=== PATIENT | female | born 1950 | race Caucasian/White ===

== ENCOUNTER → 2018-05-03 12:48 | Outpatient (CLI) | payer OTHER, SELFPAY ==
--- NOTE | 2018-05-03 12:51 | DI.MG.S_ITS ---
BILATERAL DIGITAL SCREENING MAMMOGRAM 3D/2D WITH CAD: 05/03/2018 CLINICAL: Routine screening. Family history of breast cancer. Comparison is made to exam dated: 10/05/2013 [facility]. There are scattered fibroglandular elements in both breasts. Current study was also evaluated with a Computer Aided Detection (CAD) system. There is a benign biopsy clip in the left breast. No significant masses, calcifications, or other findings are seen in either breast. There has been no significant interval change. IMPRESSION: NEGATIVE There is no mammographic evidence of malignancy. A 1 year screening mammogram is recommended. This exam was interpreted at Station ID: [id number]. NOTE: For mammograms, a report in lay terms will be sent to the patient. Approximately 15% of breast malignancies will not be visualized mammographically. In the management of a palpable breast mass, a negative mammogram must not discourage biopsy of a clinically suspicious lesion. Electronically Signed By: Earle costello/virgilio:05/04/2018 13:40:28 letter sent: Normal Exam ACR BI-RADS Category 1: Negative [id number]
== END ==
PROVIDERS: Family Provider Nutritionist; PCP Nutritionist; Visit Provider Nurse Practitioner Acute Care
DX: Z12.31 Encounter for screening mammogram for malignant neoplasm of breast (principal); Z80.3 Family history of malignant neoplasm of breast
CPT/HCPCS: 77063; 77067

== ENCOUNTER → 2018-05-19 12:43 | Outpatient (CLI) | payer OTHER, SELFPAY | PROVIDERS: Family Provider Nutritionist; PCP Nutritionist; Visit Provider Nurse Practitioner Acute Care | DX: M85.851 Other specified disorders of bone density and structure, right thigh (principal); Z78.0 Asymptomatic menopausal state | CPT/HCPCS: 77080 ==

== ENCOUNTER 2021-03-02 15:16 | Emergency (ER) | payer OTHER, SELFPAY ==
--- NOTE | 2021-03-02 15:26 | DI.CT.S_ITS ---
PROCEDURE: CT CERVICAL SPINE WO CON INDICATIONS: fall,large contusion left side head,not on thinners TECHNIQUE: Noncontrast 3 mm thick sections acquired from the skull base to the T4 level. Sagittal and coronal reformats were then constructed. For radiation dose reduction, the following was used: automated exposure control, adjustment of mA and/or kV according to patient size. COMPARISON: None. FINDINGS: Image quality: Excellent. Bones: No fractures or dislocations. Visualized superior ribs are intact. There is anterolisthesis of C3 on C4 and C4 on C5 which is favored to be degenerative. Facets are appropriately aligned. There is near complete intervertebral disc space loss at C5-C6 and C6-C7 with endplate degenerative changes. Diffuse facet arthropathy. No significant bony spinal canal stenosis. Multiple levels of mild bony neural foraminal stenosis Soft tissues: Prevertebral soft tissues are normal in thickness. No paravertebral hematomas. No apical pneumothoraces. Vascular calcifications throughout the mediastinum and within the left greater than right carotid bifurcations. IMPRESSION: No acute fracture or dislocation. Likely degenerative anterolisthesis of C3 on C4 and C4 on C5. Multilevel cervical spondylosis. Dictated by: Alexandre Lebron D.O. on 03/02/2021 at 15:04 Approved by: Alexandre Lebron D.O. on 03/02/2021 at 15:08
--- NOTE | 2021-03-02 15:26 | DI.CT.S_ITS ---
PROCEDURE: CT HEAD/BRAIN WO CON INDICATIONS: fall,large contusion left side head,not on thinners TECHNIQUE: Noncontrast 4.5 mm thick angled axial sections acquired from the foramen magnum to the vertex, with coronal and sagittal reformats. For radiation dose reduction, the following was used: automated exposure control, adjustment of mA and/or kV according to patient size. COMPARISON: [facility], CT, CT HEAD WITHOUT CONTRAST, 01/24/2020, 12:44. [facility], CT, CT CERVICAL SPINE WO CON, 03/02/2021, 15:36. FINDINGS: Image quality: Excellent. CSF spaces: Basal cisterns are patent. No extra-axial fluid collections. Ventricles are normal in size and shape. Prominence of the retrocerebellar CSF which may represent arelis cisterna magna, unchanged and of unlikely clinical significance. Brain: No midline shift. No intracranial masses or hemorrhage. Jacobs-white matter interface is normal. Skull and face: Large soft tissue hematoma overlying the posterior and superior left occiput. Calvarium and visualized facial bones are intact, without suspicious lesions. Sinuses: Visualized sinuses and mastoids are clear. IMPRESSION: Large soft tissue hematoma overlying the posterior left occiput. No evidence of acute intracranial hemorrhage or displaced calvarial fracture. Dictated by: Alexandre Lebron D.O. on 03/02/2021 at 15:00 Approved by: Alexandre Lebron D.O. on 03/02/2021 at 15:04
[2021-03-02 15:27] VITALS: BP 159/83; PULSE 103; PULSE 105; RESP 18; TEMP 36.7; O2SAT 94; O2SAT 96; BMI 42.5
[2021-03-02 15:30] VITALS: BP 151/80; PULSE 102; O2SAT 95
--- NOTE | 2021-03-02 15:43 | PC.NURSE ---
Patient c/o head pain due to recent fall (1500 today) in her driveway. Patient has been housebound for the past two weeks, per at bedside. States she has been feeling unwell and her sugars are uncontrolled. She is currently being followed by a MD in [place] to manage her DMII. C/O diarrhea over the past two days, denies rash and no hx of recent fever.
[2021-03-02 16:00] VITALS: PULSE 98; O2SAT 94
--- NOTE | 2021-03-02 16:06 | ED.FALL ---
HPI - Fall General Chief Complaint: Fall Stated Complaint: GLF, head injury, seen emt Time Seen by Provider: 03/02/21 16:00 Source: patient Mode of arrival: Wheelchair History of Present Illness HPI Narrative: Patient brought here by family. EMS did arrive to home for evaluation. Patient and state that she was trying to carry to many things out of her car. She was in between 2 cars at home on the driveway and got caught between the doors and fell down. Hit her head on the driveway. Has hematoma with the left parietal occipital scalp. No bleeding. Patient not on blood thinners. No loss of consciousness. No altered mental status. No vision changes. No vomiting. No weakness. Denies any other injuries Related Data Allergies Allergy/AdvReac Type Severity Reaction Status Date / Time enalapril Allergy Verified 03/02/21 15:27 Review of Systems Review of Systems Narrative: GENERAL: Denies chills, fatigue, malaise, fever, sweats. HEENT: Denies sinus pain, ear pain, sore throat RESPIRATORY: Denies dyspnea, cough CARDIOVASCULAR: Denies chest pain, palpitations GASTROINTESTINAL: Denies nausea, vomiting, abdominal pain : Denies dysuria, frequency, hematuria MUSCULOSKELETAL: Positive muscle or bony pain SKIN: Denies rash, skin lesions NEUROLOGIC: Denies weakness, numbness ROS Unobtainable: All systems reviewed & are unremarkable except as noted in HPI and below Patient History Social History Smoking Status: Unknown if ever smoked Smoking Status: Unknown if ever smoked alcohol intake frequency: holidays/special occasions only Substance Use Type: does not use Exam Narrative Exam Narrative: GENERAL: in no distress, not toxic not dyspneic HEAD: Normocephalic. There is tenderness and edema to the left parietal occipital scalp. Hematoma measures 4 cm in diameter. No crepitus or step-off of the skull. No bleeding on the scalp. EYES: Pupils equal round No scleral icterus. ENT: Mucous membranes moist. No malocclusion or trismus. No intraoral oral injury. NECK: Trachea midline. No midline tenderness or step-off. CARDIOVASCULAR: Regular rate and rhythm without murmurs RESPIRATORY: Clear to auscultation. Breath sounds equal bilaterally. No wheezes, rales, or rhonchi. GASTROINTESTINAL: Abdomen soft, non-tender EXTREMITIES: No gross deformities. Nontender bilateral shoulders elbows wrists pelvis hips knees and ankles. NEURO: AOx4. 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 They agree with treatment plan discharge home and comfortable with home observation for any changes. Time: 16:16 Vital Signs Vital signs: Vital Signs - 8 hr 03/02/21 15:27 03/02/21 15:30 Temperature 98.0 F Pulse Rate 103 H 102 H Respiratory Rate 18 Blood Pressure 159/83 H 151/80 H Pulse Oximetry 94 95 MDM - Fall Differential Diagnosis Differential diagnosis: Likely syncope, concussion with loss of consciousness, concussion without loss of consciousness and other (Scalp hematoma/closed head injury/intracranial injury/bleed) Imaging Data CT scan - head: Radiologist's Impression: [address] [address] [address] Scan Report Signed Patient: Gianna Rodríguez MR#: [id number] : 1950 Acct:[id number] Age/Sex: 70 / F Date of Service: 03/02/21 Loc: ED Accession Number: [id number] ?? Procedure: CT head/brain wo con Ordering Provider: Nathanael Whelan MD PROCEDURE:? CT HEAD/BRAIN WO CON ? INDICATIONS:? fall,large contusion left side head,not on thinners ? TECHNIQUE:? Noncontrast 4.5 mm thick angled axial sections acquired from the foramen magnum to the vertex, with coronal and sagittal reformats.? For radiation dose reduction, the following was used:? automated exposure control, adjustment of mA and/or kV according to patient size.? ? COMPARISON:? [facility], CT, CT HEAD WITHOUT CONTRAST, 01/24/2020, 12:44.? [facility], CT, CT CERVICAL SPINE WO CON, 03/02/2021, 15:36. ? FINDINGS:? Image quality:? Excellent.? ? CSF spaces:? Basal cisterns are patent.? No extra-axial fluid collections.? Ventricles are normal in size and shape.? Prominence of the retrocerebellar CSF which may represent arelis cisterna magna, unchanged and of unlikely clinical significance. ? Brain:? No midline shift.? No intracranial masses or hemorrhage.? Jacobs-white matter interface is normal.? ? Skull and face:? Large soft tissue hematoma overlying the posterior and superior left occiput.? Calvarium and visualized facial bones are intact, without suspicious lesions.? ? Sinuses:? Visualized sinuses and mastoids are clear.? ? IMPRESSION:? ? Large soft tissue hematoma overlying the posterior left occiput.? No evidence of acute intracranial hemorrhage or displaced calvarial fracture. ? ? Dictated by: Alexandre Lebron D.O. on 03/02/2021 at 15:00 ? ? Approved by: Alexandre Lebron D.O. on 03/02/2021 at 15:04 ? CT - cervical spine: Radiologist's Impression: [place] [address] CT Scan Report Signed Patient: Gianna Rodríguez MR#: [id number] : 1950 Acct:[id number] Age/Sex: 70 / F Date of Service: 03/02/21 Loc: ED Accession Number: [id number] ?? Procedure: CT cervical spine wo con Ordering Provider: Nathanael Whelan MD PROCEDURE:? CT CERVICAL SPINE WO CON ? INDICATIONS:? fall,large contusion left side head,not on thinners ? TECHNIQUE:? Noncontrast 3 mm thick sections acquired from the skull base to the T4 level.? Sagittal and coronal reformats were then constructed.? For radiation dose reduction, the following was used:? automated exposure control, adjustment of mA and/or kV according to patient size.? ? COMPARISON:? None. ? FINDINGS:? Image quality:? Excellent.? ? Bones:? No fractures or dislocations.? Visualized superior ribs are intact.? There is anterolisthesis of C3 on C4 and C4 on C5 which is favored to be degenerative.? Facets are appropriately aligned.? There is near complete intervertebral disc space loss at C5-C6 and C6-C7 with endplate degenerative changes.? Diffuse facet arthropathy.? No significant bony spinal canal stenosis.? Multiple levels of mild bony neural foraminal stenosis? ? Soft tissues:? Prevertebral soft tissues are normal in thickness.? No paravertebral hematomas.? No apical pneumothoraces.? Vascular calcifications throughout the mediastinum and within the left greater than right carotid bifurcations. ? ? IMPRESSION:? ? No acute fracture or dislocation.? Likely degenerative anterolisthesis of C3 on C4 and C4 on C5. ? Multilevel cervical spondylosis.? ? Dictated by: Alexandre Lebron D.O. on 03/02/2021 at 15:04 ? ? Approved by: Alexandre Lebron D.O. on 03/02/2021 at 15:08 ?? MDM Narrative Medical decision making narrative: Appropriate for discharge home. Exam and imaging reassuring. Patient neurovascularly intact. Return precautions reviewed with patient and . Not toxic at discharge. No other further observation needed. Discharge Plan Departure Patient Disposition: Home Clinical Impression: Hematoma of occipital region of scalp Instructions: DI for Hematoma (Bruise), DI for Closed Head Injury Activity Restrictions/Additional Instructions: See family doctor next week for recheck. May use Tylenol for pain. Use ice pack 20 minutes at a time to the scalp as needed for pain and swelling. Return if worse if any questions or concerns Referrals: Staci Tovar MD [Primary Care Provider] -
[2021-03-02] MEDS: ACETAMINOPHEN 325 MG TABLET 975 MG PO (16:11)
[2021-03-02 16:17] VITALS: BP 138/63; PULSE 99; O2SAT 94
[2021-03-02 16:36] VITALS: BP 138/63; PULSE 99; RESP 20; O2SAT 94
== END 2021-03-02 16:38 | disposition home or self-care (01) ==
PROVIDERS: Emergency Provider Emergency Medicine; Family Provider Nutritionist; PCP Nutritionist
DX: S00.03XA Contusion of scalp, initial encounter (principal); W19.XXXA Unspecified fall, initial encounter
CPT/HCPCS: 70450; 72125; 99284; 99291

== ENCOUNTER → 2021-06-10 15:49 | Outpatient (CLI) | payer OTHER, SELFPAY ==
--- NOTE | 2021-06-10 | DI.MG.S_ITS ---
BILATERAL DIGITAL SCREENING MAMMOGRAM 3D/2D WITH CAD: 06/10/2021 CLINICAL: Routine screening. Family history of breast cancer. Comparison is made to exams dated: 05/03/2018 mammogram, 10/05/2013 mammogram, 09/22/2013 mammogram, and 08/18/2013 mammogram - [facility]. There are scattered fibroglandular elements in both breasts. Current study was also evaluated with a Computer Aided Detection (CAD) system. There are stable biopsy clips in the left breast. There is a 0.8 cm oval high density focal asymmetry in the right breast at 12 o'clock middle depth. This is more prominent and increased in size. No other significant masses, calcifications, or other findings are seen in either breast. IMPRESSION: INCOMPLETE: NEEDS ADDITIONAL IMAGING EVALUATION The 0.8 cm oval high density focal asymmetry in the right breast is indeterminate. Additional views with possible ultrasound are recommended. This exam was interpreted at Station ID: [id number]. NOTE: For mammograms, a report in lay terms will be sent to the patient. Approximately 15% of breast malignancies will not be visualized mammographically. In the management of a palpable breast mass, a negative mammogram must not discourage biopsy of a clinically suspicious lesion. Electronically Signed By: Iban Burns M.D. aty/:06/10/2021 16:55:42 letter sent: Additional Imaging Needed ACR BI-RADS Category 0: Incomplete [id number]
== END ==
PROVIDERS: Family Provider Nutritionist; PCP Nutritionist; Referring Provider Nutritionist; Visit Provider Nutritionist
DX: Z12.31 Encounter for screening mammogram for malignant neoplasm of breast (principal); Z80.3 Family history of malignant neoplasm of breast
CPT/HCPCS: 77063; 77067

== ENCOUNTER → 2021-07-02 11:40 | Outpatient (CLI) | payer OTHER, SELFPAY ==
--- NOTE | 2021-07-02 | DI.US.S_ITS ---
PROCEDURE: US BREAST RT LIMITED COMPARISON: None. INDICATIONS: ADD VIEWS RIGHT BREAST FINDINGS: IMPRESSION: Dictated by: Jt White M.D. on 07/02/2021 at 15:48 Approved by: Jt White M.D. on 07/02/2021 at 15:49
--- NOTE | 2021-07-02 | DI.MG.S_ITS ---
UNILATERAL RIGHT DIGITAL DIAGNOSTIC MAMMOGRAM 3D/2D WITH ADDITIONAL VIEWS: 07/02/2021 CLINICAL: Additional evaluation requested from prior study. Comparison is made to exams dated: 06/10/2021 mammogram, 05/03/2018 mammogram, and 08/18/2013 mammogram - [facility]. There are scattered fibroglandular elements in right breast. There is a 0.8 cm oval high density focal asymmetry in the right breast at 12 o'clock middle depth. This is seen in additional views. No other significant masses or calcifications are seen in the breast. IMPRESSION: INCOMPLETE: NEEDS ADDITIONAL IMAGING EVALUATION The 0.8 cm oval high density focal asymmetry in the right breast is indeterminate. An ultrasound is recommended. US will be performed and dictated separately. This exam was interpreted at Station ID: [id number]. NOTE: For mammograms, a report in lay terms will be sent to the patient. Approximately 15% of breast malignancies will not be visualized mammographically. In the management of a palpable breast mass, a negative mammogram must not discourage biopsy of a clinically suspicious lesion. Electronically Signed By: Jt White acr/:07/02/2021 12:23:40 ACR BI-RADS Category 0: Incomplete [id number]
--- NOTE | 2021-07-02 12:47 | DI.US.S_ITS ---
Date: 07/02/2021 12:49 At the request of: CONNOR BABCOCK Procedure: US breast RT limited ULTRASOUND OF RIGHT BREAST: 07/02/2021 CLINICAL: Patient returns today to evaluate a focal asymmetry in the right breast. Comparison is made to exams dated: 07/02/2021 mammogram, 06/10/2021 mammogram, and 05/03/2018 mammogram - [facility]. Doppler ultrasound of the right breast was performed. Jacobs scale images of the real-time examination were reviewed. There is a 1.1 cm x 0.5 cm x 0.9 cm irregular mass with an indistinct margin in the right breast at 12 o'clock middle depth 10 cm from the nipple. This irregular mass displays posterior acoustic enhancement. IMPRESSION: SUSPICIOUS OF MALIGNANCY The 1.1 cm x 0.5 cm x 0.9 cm irregular mass in the right breast is at a high suspicion for malignancy. An ultrasound guided biopsy is recommended. These findings and recommendation were discussed with the patient by Dr Cook. This exam was interpreted at Station ID: [id number]. Electronically Signed By: Jt White acr/:07/02/2021 15:49:34 letter sent: Biopsy Required Ultrasound BI-RADS: 4c High suspicion of malignancy
== END ==
PROVIDERS: Family Provider Nutritionist; PCP Nutritionist; Referring Provider Nutritionist; Visit Provider Nutritionist
DX: R92.8 Other abnormal and inconclusive findings on diagnostic imaging of breast (principal); N63.15 Unspecified lump in the right breast, overlapping quadrants
CPT/HCPCS: 76642; 77065; G0279

== ENCOUNTER → 2021-08-06 10:47 | Outpatient (CLI) | payer OTHER, SELFPAY ==
--- NOTE | 2021-08-06 | DI.MG.S_ITS ---
UNILATERAL RIGHT DIGITAL DIAGNOSTIC MAMMOGRAM 3D/2D POST-NEEDLE BIOPSY: 08/06/2021 CLINICAL: Right breast mass. Comparison is made to exams dated: 07/02/2021 mammogram, 06/10/2021 mammogram, and 05/03/2018 mammogram - [facility]. There are scattered fibroglandular elements in right breast. There is a marker clip in the appropriate position in the right breast at 12 o'clock middle depth. This marker clip placement is at the biopsy site. IMPRESSION: POST PROCEDURE MAMMOGRAM FOR MARKER PLACEMENT There was a successful marker clip placement in the right breast middle depth. This exam was interpreted at Station ID: [id number]. NOTE: For mammograms, a report in lay terms will be sent to the patient. Approximately 15% of breast malignancies will not be visualized mammographically. In the management of a palpable breast mass, a negative mammogram must not discourage biopsy of a clinically suspicious lesion. Electronically Signed By: Kristyn mccloud/virgilio:08/06/2021 12:06:01 ACR BI-RADS Category Post-procedure mammogram for marker placement
--- NOTE | 2021-08-06 | DI.US.S_ITS ---
ULTRASOUND GUIDED BIOPSY RIGHT BREAST USING VACUUM DEVICE WITH MARKING DEVICE INSERTED AND POST DIGITAL MAMMOGRAPHIC IMAGIN08/06/2021 CLINICAL: Right breast mass. PATIENT CONSENT: Risks (minor bleeding, infection, vasovagal reaction and repeat procedure), benefits and alternatives were explained to the patient and written informed consent was obtained. Correlation is made to exams dated: 07/02/2021 ultrasound, 07/02/2021 mammogram, 06/10/2021 mammogram, 05/03/2018 mammogram, 04/07/2014, and 08/18/2013 mammogram - [facility]. An ultrasound guided biopsy using real-time ultrasound was performed for the indistinct irregular shaped mass located in the right breast at 12 o'clock middle depth. The skin was prepped in the usual manner. Local anesthetic was administered to the access site. A skin jacqueline was made in the breast. The abnormality was approached from the lateral aspect. A 13 gauge biopsy needle was placed adjacent to the abnormality under ultrasound guidance. Once the needle was documented to be in the correct location, six specimens were obtained using the Mammotome biopsy system. A Vision biopsy clip was inserted into the biopsy cavity. A skin closure strip was applied to the access site. Post procedure digital mammographic imaging demonstrates the location device at the targeted area. The specimens were sent to the laboratory for pathological analysis. IMPRESSION: ULTRASOUND GUIDED BIOPSY MALIGNANT Ultrasound guided biopsy of the mass in the right breast at 12 o'clock middle depth was successful. 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 No evidence of invasive carcinoma. Pathology results are concordant with imaging findings. This exam was interpreted at Station ID: [id number]. Kristyn Weber M.D. [facility],sanjay/:08/12/2021 08:16:45
--- NOTE | 2021-08-06 | PATH_ITS ---
[facility] Accession Number: [id number] . 01 Material submitted: . breast - RIGHT BREAST MASS 9:00, 10 CMFN BIOPSY . 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 No evidence of invasive carcinoma. See comment and summary data below: . 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 Nuclear grade: Grade 1 (low). Necrosis: Not identified. Microcalcifications: Present in non-neoplastic tissue. Estrogen receptor status: Positive, 91-100% MRV 08/09/2021 1709 Local . 02 Comment: The area of atypia within the papilloma fragments is less than 3 mm in contiguous extent and, therefore does not meet the criteria required to diagnose DCIS. However, low grade DCIS is present in ducts adjacent to the papilloma. . As part of routine quality inspector, this case was also reviewed by Dr. Peterson who agrees with the diagnosis. . 02 Electronically signed: . Sherlyn Carbajal MD, Pathologist NPI- [id number] . 01 Gross description: . Received in formalin, labeled with the patient's name and additionally labeled right breast, 9 o'clock are multiple core needle biopsies of yellow lobulated adipose tissue and winston breast parenchyma measuring 1.5 x 1.3 x 0.5 cm. The specimen is entirely submitted in cassettes A1 and A2. (MS:[id number]) /MRV 08/07/2021 1506 Local . 02 Microscopic: . Immunohistochemical stains were performed to characterize cells of interest. All control stains showed appropriate reactivity. . RESULTS: P63: Positive around the ducts of interest. Myosin: Positive around the ducts of interest. Estrogen receptor (SP1): Strongly positive (91-100%). . Cold Ischemia and Fixation Times: Meets requirements in the latest version of the ASCO/CAP guidelines. Testing performed on Block Number: A2 . TECHNICAL NOTE: The scoring criteria for breast biomarkers by immunohistochemistry is based on the current ASCO/CAP guidelines (Stephanie et al, Arch Pathol Lab Med 2010: 134(6): 907-922 / Derek Hall, Arch Pathol Lab Med 2014: 138(2):241-256). Deparaffinized sections of formalin fixed tissue (along with appropriate positive controls) are incubated with the above antibody(s). Using the automated [place] stainer, tissue is incubated with the designated antibody* which is then localized by a non-biotin, dual polymer detection system. The external controls are reviewed for appropriate reactivity and found to be adequate. Results on the target cell population are indicated above. These tests have not been validated on decalcified tissue. * This test was developed and its performance characteristics determined by [facility]. It has not been cleared or approved by the U.S. Food and Drug Administration. The FDA has determined that such clearance or approval is not necessary. This test is used for clinical purposes. It should not be regarded as investigational or for research. . 02 Pathologist provided ICD-10: R92.8 . 02 CPT . 588102, V91887, T41743, 948615 Specimen Comment: A courtesy copy of this report has been sent to [facility] Pathology Performed at: 01 [facility] [address] [facility], [place], [place] [id number] MD Justin Davey MD Phone: [phone] Performed at: 02 [facility] [id number] [facility] [address] [place], [place] [id number] MD Sherlyn Carbajal MD Phone: [phone]
== END ==
PROVIDERS: Family Provider Nutritionist; PCP Nutritionist; Referring Provider Nutritionist; Visit Provider Nutritionist
DX: D05.11 Intraductal carcinoma in situ of right breast (principal)
CPT/HCPCS: 19083; 77065

== ENCOUNTER 2021-10-03 18:34 | Inpatient (IN) | payer OTHER, SELFPAY ==
[2021-10-03] VITALS (23 sets, daily range): BP systolic 111–160; BP diastolic 57–87; PULSE 80–93; RESP 18–67; TEMP 32–38.3; O2SAT 84–96; BMI 38.7
--- NOTE | 2021-10-03 18:50 | PC.NURSE ---
BIPAP on with BUSINESS SERVICES REPRESENTATIVE and MD at [facility]
--- NOTE | 2021-10-03 18:53 | DI.RAD.S_ITS ---
PROCEDURE: XR CHEST 1V INDICATIONS: dyspnea TECHNIQUE: One view of the chest was acquired. COMPARISON: [facility], , CHEST 1 VIEW, 07/24/2012, 0:06. FINDINGS: Surgical changes and devices: Prior right breast lumpectomy.. Lungs and pleura: Extensive patchy multifocal alveolar opacity seen throughout the left lung. There is also patchy opacity seen in the right upper lobe medially. Mediastinum: Slight leftward shift of the cardiomediastinal structures compared to the prior study. Heart at the upper limits of normal in size. Bones and chest wall: Moderate to severe degeneration of both shoulder joints, left much worse than right. Surgical clips in the right breast. IMPRESSION: 1. Patchy multifocal bilateral alveolar opacities, left much more extensive than right. This is probably infection, less likely inflammation or metastatic disease given known history of breast cancer. 2. Upper limits of normal heart size. Dictated by: Funmilayo Dickey M.D. on 10/03/2021 at 19:36 Approved by: Funmilayo Dickey M.D. on 10/03/2021 at 19:40
[2021-10-03 19:04] LABS: Add Manual Diff / Slide Review NO; Basophils Absolute Auto 100 /uL (0-100); Basophils Percent Auto 1.1 % (0-2); Eosinophils Absolute Auto 0 /uL (0-450); Eosinophils Percent Auto 0.1 % (2-4); Hematocrit 38.7 % (36-46); Hemoglobin 12.9 g/dL (12.0-16.0); Lymphocytes Absolute Auto 1600 /uL (1100-4500); Lymphocytes Percent Auto 13.1 % (25-40); Mean Corpuscular HGB Conc 33.3 % (30-36); Mean Corpuscular Hemoglobin 30.3 PG (26-34); Mean Corpuscular Volume 90.9 fL (80-100); Monocytes Absolute Auto 1000 /uL (0-900); Monocytes Percent Auto 8.5 % (3-14); Neutrophils Absolute Auto 9400 /uL (1500-7000); Neutrophils Percent Auto 77.2 % (50-75); Platelet Count 214 X10^3/uL (150-400); Red Blood Cell Count 4.25 X10^6/uL (4.0-5.2); Red Cell Distribution Width 14.9 % (11.6-14.8); White Blood Cell Count 12.2 X10^3/uL (4.5-11.0)
[2021-10-03 19:13] LABS: Albumin 3.7 g/dL (3.5-5.0); Albumin Globulin Ratio 0.8 (1.0-2.8); Alkaline Phosphatase 176 U/L (38-126); Aspartate Aminotransferase 70 IU/L (14-36); BUN Creatinine Ratio 24.3 (6-22); Bilirubin Total 1.2 mg/dL (0.2-1.3); Blood Urea Nitrogen 17 mg/dL (7-17); Calcium 8.7 mg/dL (8.4-10.2); Carbon Dioxide 20 mmol/L (22-32); Chloride 108 mmol/L (98-107); Estimated Glomerular Filt Rate > 60 mL/min (>60); Globulin 4.4 g/dL (1.7-4.1); Glucose 163 mg/dL (80-110); HEMOLYSIS < 15 (0-50); Lipase 121 U/L (23-300); Magnesium 1.9 mg/dL (1.6-2.3); Potassium 3.6 mmol/L (3.4-5.1); Sodium 139 mmol/L (137-145); Total Protein 8.1 g/dL (6.3-8.2)
--- NOTE | 2021-10-03 19:13 | ED.GENADULT ---
HPI - General Adult General Chief complaint: Shortness of Breath/Dyspnea Stated complaint: sob, glf, desat Time Seen by Provider: 10/03/21 18:35 Source: EMS Mode of arrival: EMS History of Present Illness HPI narrative: 71-year-old woman with a history of breast cancer, hypertension, diabetes, hyperlipidemia, hypothyroidism, chronic pain with arthritis, reflux, insomnia called 911 for initially a ground level fall non injury needing help getting up due to overall weakness. When medics arrived they found her in significant respiratory distress with oxygen saturations documented in the 70s. She was placed on oxygen given a DuoNeb with saturations increasing to 89% and transported to the emergency department. On arrival in the emergency department she is in acute respiratory distress with peripheral cyanosis, significant cough and inability to speak in full sentences due to the dyspnea and cough. Medics to report that her had reported no fevers she states she does not have a history of COPD or congestive heart failure. The reports that this has been going on for a number of days but worse in the last 24 hours.. There are no reports that she Has been vomiting or having diarrhea. Diarrhea. Related Data Allergies Allergy/AdvReac Type Severity Reaction Status Date / Time enalapril Allergy Verified 03/02/21 15:27 Review of Systems Review of Systems Narrative: Remainder of review of systems is unobtainable due to severe respiratory distress Patient History Medical History (Updated 10/03/21 @ 21:54 by Alanis Cowan MD) Acid reflux Chronic insomnia Hyperlipidemia Hypertension Hypothyroidism (acquired) Social History Smoking Status: Unknown if ever smoked Smoking Status: Unknown if ever smoked alcohol intake frequency: holidays/special occasions only Substance Use Type: does not use Exam Initial Vital Signs Initial Vital Signs: Vital Signs Temperature 97.7 F 10/03/21 18:35 Pulse Rate 93 H 10/03/21 18:35 Respiratory Rate 35 H 10/03/21 18:35 Blood Pressure 160/78 H 10/03/21 18:35 Pulse Oximetry 85 L 10/03/21 18:35 General: Severe respiratory distress with peripheral cyanosis, tachypnea, retractions, severe dry cough HEENT: Moist mucous membranes, normal sclera with reactive pupils, Neck: Unable to assess JVD secondary to body habitus and respiratory distress, supple Respiratory: Lungs bibasilar crackles to the mid lung schumacher with no rhonchi, supraclavicular retractions and abdominal muscle use to assist with breathing. Minimal wheezing throughout. Cardiac: Tachycardic with otherwise rate and rhythm no murmurs no bruits Abdomen: Soft, nontender, good bowel tones, no flank pain Skin: Pale, cool cyanotic extremities on arrival, no rashes or petechiae. Neurologic: Moving all extremities but decreased overall mental status due to work of breathing Extremities: No trauma, well perfused with good capillary refill despite poor oxygenation overall, no lower extremity edema Psych: Cooperative but significantly altered Course Course Course Narrative: On arrival patient is in acute respiratory distress. Two lines are started, full laboratory workup for sepsis as well as cardiac etiologies are initiated. Respiratory therapy is called and she is immediately paced on BiPAP. Once on BiPAP she actually is breathing much more comfortably, still tachypneic however saturations are now in the low 90s. She still has bibasilar crackles. Is still unable to offer any additional history. Lab calls to indicate a lactic acid of 5.2. At this point she is not hypotensive and I a.m. concerned that this is cardiac related as much as infectious disease related. Will hold off on 30 per kilos sepsis suggested fluid resuscitation initially until chest x-ray and further lab work suggests that she is not in florid pulmonary edema. Initial ABG shows a pH of 7.43 a CO2 of 33.5 and a PO2 of 84 while on BiPAP. Antibiotics to cover pneumonia are initiated. Despite her BiPAP, with her increased work of breathing respiratory rate I a.m. concerned that she will fatigue and a progressed to intubation. 810 pm chest x-ray is reviewed. Radiology interpretation is bilateral pulmonary infiltrates left greater than right. I suspect a significant degree of fluid overload with a significantly elevated BNP. Her troponin is negative so I am less concerned with acute coronary syndrome however her D-dimers dramatically elevated and pulmonary embolism is an absolutely realistic possibility given her noted clinical symptoms and history of breast cancer. 930pm patient currently on CPAP and tolerating this more comfortably than BiPAP. Settings are 10 and oxygen percentage is 55%. She is at 93-94% saturation on the she is significantly over breathing. CT angiogram does not reveal pulmonary embolism. At this point she has put out almost a L of urine is looking significantly better. Lactic acid is down to 1.6, she remains afebrile. Findings are reviewed with patient and her and she will be admitted. Orders Ordered: ED Orders 10/03/21 18:50 Blood Culture Stat 10/03/21 18:53 XR chest 1V Stat 10/03/21 18:54 EKG-12 Lead Stat 10/03/21 18:55 Complete Blood Count AUTO DIFF Stat Comprehensive Metabolic Panel Stat D Dimer Stat Lactate (Lactic Acid) Stat Lipase Stat Magnesium Stat NT-proBNP (BNP-Adult 18+) Stat Procalcitonin Stat Troponin I Stat 10/03/21 19:02 ABG [Arterial Blood Gas] Stat 10/03/21 19:41 Urinalysis and Microscopic Stat 10/03/21 19:47 Respiratory Panel (Film Array) Stat 10/03/21 20:13 CT angio chest PE protocol Stat Discontinued Medications Albuterol (Albuterol 2.5 Mg/3 Ml Neb (Adult)) 2.5 mg INH NOW ONE Stop: 10/03/21 18:44 Furosemide (Furosemide 40 Mg/4 Ml Vial) 40 mg IV NOW ONE Stop: 10/03/21 20:10 Last Admin: 10/03/21 20:25 Dose: 40 mg Documented by: Hydromorphone HCl (Hydromorphone 0.5 Mg Inj) 0.5 mg IV NOW ONE Stop: 10/03/21 20:50 Last Admin: 10/03/21 21:00 Dose: 0.5 mg Documented by: Piperacillin Sod/Tazobactam (Sod 4.5 gm/ Sodium Chloride) 100 mls @ 200 mls/hr IV NOW ONE Stop: 10/03/21 19:26 Last Admin: 10/03/21 19:57 Dose: 200 mls/hr Documented by: KPETERSON Vital Signs Vital signs: Vital Signs - 8 hr 10/03/21 18:35 10/03/21 18:39 10/03/21 18:40 Temperature 97.7 F Pulse Rate 93 H 92 H 92 H Respiratory Rate 35 H 40 H 40 H Blood Pressure 160/78 H 160/78 H Pulse Oximetry 85 L 84 L 85 L 10/03/21 18:53 10/03/21 19:00 10/03/21 19:16 Temperature Pulse Rate 87 86 84 Respiratory Rate 48 H 40 H 33 H Blood Pressure 159/71 H 124/57 L 123/61 Pulse Oximetry 96 96 94 10/03/21 19:30 10/03/21 19:45 10/03/21 20:00 Temperature 97.9 F 100.8 F H Pulse Rate 84 82 83 Respiratory Rate 31 H 42 H 39 H Blood Pressure 128/60 128/60 124/58 L Pulse Oximetry 94 96 95 10/03/21 20:15 Temperature 100.2 F H Pulse Rate 83 Respiratory Rate 42 H Blood Pressure 127/60 Pulse Oximetry 94 Medical Decision Making Lab Data Result diagrams: 10/03/21 18:55 10/03/21 18:55 Labs: Lab Results 10/03/21 10/03/21 10/03/21 Range/Units 18:55 18:55 18:55 WBC 12.2 H (4.5-11.0) X10^3/uL RBC 4.25 (4.0-5.2) X10^6/uL Hgb 12.9 (12.0-16.0) g/dL Hct 38.7 (36-46) % MCV 90.9 (80-100) fL MCH 30.3 (26-34) PG MCHC 33.3 (30-36) % RDW 14.9 H (11.6-14.8) % Plt Count 214 (150-400) X10^3/uL Neut % (Auto) 77.2 H (50-75) % Lymph % (Auto) 13.1 L (25-40) % [place] % (Auto) 8.5 (3-14) % Eos % (Auto) 0.1 L (2-4) % Baso % (Auto) 1.1 (0-2) % Neut # (Auto) 9400 H (3232-0324) /uL Lymph # (Auto) 1600 (6320-2603) /uL [place] # (Auto) 1000 H (0-900) /uL Eos # (Auto) 0 (0-450) /uL Baso # (Auto) 100 (0-100) /uL D-Dimer 1199 H (<230) ng/mL ABG pH (7.35-7.45) ABG pCO2 (35-45) mmHg ABG pO2 (80-100) mmHg ABG HCO3 (22-26) mmol/L ABG Total CO2 (21-31) mmol/L ABG O2 Saturation (95-100) % ABG Base Excess (-2-2) mmol/L FiO2 Sodium 139 (137-145) mmol/L Potassium 3.6 (3.4-5.1) mmol/L Chloride 108 H (98-107) mmol/L Carbon Dioxide 20 L (22-32) mmol/L BUN 17 (7-17) mg/dL Creatinine 0.70 (0.52-1.04) mg/dL Estimated GFR > 60 (>60) mL/min BUN/Creatinine Ratio 24.3 H (6-22) Glucose 163 H (80-110) mg/dL Lactate (0.7-2.1) mmol/L Calcium 8.7 (8.4-10.2) mg/dL Magnesium 1.9 (1.6-2.3) mg/dL Total Bilirubin 1.2 (0.2-1.3) mg/dL AST 70 H (14-36) IU/L ALT 40 H (<35) IU/L Alkaline Phosphatase 176 H (38-126) U/L Troponin I < 0.012 (0.01-0.034) ng/mL NT-Pro-B Natriuret Pep 2210 H (<125) pg/mL Total Protein 8.1 (6.3-8.2) g/dL Albumin 3.7 (3.5-5.0) g/dL Globulin 4.4 H (1.7-4.1) g/dL Albumin/Globulin Ratio 0.8 L (1.0-2.8) Lipase 121 (23-300) U/L Procalcitonin 0.16 (<0.5) ng/mL Urine Color Urine Appearance Urine pH (4.5-8.0) Ur Specific [place] (1.000-1.035) Urine Protein (Negative) Urine Glucose (UA) (Negative) g/dL Urine Ketones (NEGATIVE) Urine Occult Blood (Negative) Urine Nitrate (Negative) Urine Bilirubin (NEGATIVE) Urine Urobilinogen (0.2) E.U./dL Ur Leukocyte Esterase (NEGATIVE) Urine RBC (0-5/HPF) Urine WBC (0-5/HPF) Ur Squamous Epith Cells (0-5/HPF) Urine Bacteria (None) Urine Mucus (Negative) Ur Culture Indicated? Chlamy pneumoniae PCR (Not Detect) Adenovirus (PCR) (Not Detect) B. pertussis DNA (PCR) (Not Detecte) B.parapertussis DNA PCR (Not Detecte) Coronavirus OC43 (PCR) (Not Detect) Coronavirus HKU1 (PCR) (Not Detect) Coronavirus 229E (PCR) (Not Detect) SARS-CoV-2 (PCR) (Not Detecte) Coronavirus NL63 (PCR) (Not Detect) Human Metapneumovir PCR (Not Detect) Influenza Type A (PCR) (Not Detect) Influenza Type B (PCR) (Not Detect) M. pneumoniae (PCR) (Not Detect) Parainfluenza 1 (PCR) (Not Detect) Parainfluenza 2 (PCR) (Not Detect) Parainfluenza 3 (PCR) (Not Detect) Parainfluenza 4 (PCR) (Not Detect) RSV (PCR) (Not Detect) Entero/Rhino (PCR) (Not Detect) 10/03/21 10/03/21 10/03/21 Range/Units 18:55 19:02 19:41 WBC (4.5-11.0) X10^3/uL RBC (4.0-5.2) X10^6/uL Hgb (12.0-16.0) g/dL Hct (36-46) % MCV (80-100) fL MCH (26-34) PG MCHC (30-36) % RDW (11.6-14.8) % Plt Count (150-400) X10^3/uL Neut % (Auto) (50-75) % Lymph % (Auto) (25-40) % [place] % (Auto) (3-14) % Eos % (Auto) (2-4) % Baso % (Auto) (0-2) % Neut # (Auto) (2892-1577) /uL Lymph # (Auto) (9495-6395) /uL [place] # (Auto) (0-900) /uL Eos # (Auto) (0-450) /uL Baso # (Auto) (0-100) /uL D-Dimer (<230) ng/mL ABG pH 7.44 (7.35-7.45) ABG pCO2 33.5 L (35-45) mmHg ABG pO2 84 (80-100) mmHg ABG HCO3 22 (22-26) mmol/L ABG Total CO2 23 (21-31) mmol/L ABG O2 Saturation 97 (95-100) % ABG Base Excess -2.0 (-2-2) mmol/L FiO2 60 Sodium (137-145) mmol/L Potassium (3.4-5.1) mmol/L Chloride (98-107) mmol/L Carbon Dioxide (22-32) mmol/L BUN (7-17) mg/dL Creatinine (0.52-1.04) mg/dL Estimated GFR (>60) mL/min BUN/Creatinine Ratio (6-22) Glucose (80-110) mg/dL Lactate 5.2 H* (0.7-2.1) mmol/L Calcium (8.4-10.2) mg/dL Magnesium (1.6-2.3) mg/dL Total Bilirubin (0.2-1.3) mg/dL AST (14-36) IU/L ALT (<35) IU/L Alkaline Phosphatase (38-126) U/L Troponin I (0.01-0.034) ng/mL NT-Pro-B Natriuret Pep (<125) pg/mL Total Protein (6.3-8.2) g/dL Albumin (3.5-5.0) g/dL Globulin (1.7-4.1) g/dL Albumin/Globulin Ratio (1.0-2.8) Lipase (23-300) U/L Procalcitonin (<0.5) ng/mL Urine Color Yellow Urine Appearance Clear Urine pH 5.5 (4.5-8.0) Ur Specific [place] 1.020 (1.000-1.035) Urine Protein 2+ H (Negative) Urine Glucose (UA) Negative (Negative) g/dL Urine Ketones Negative (NEGATIVE) Urine Occult Blood Negative (Negative) Urine Nitrate Negative (Negative) Urine Bilirubin Negative (NEGATIVE) Urine Urobilinogen 1.0 (0.2) E.U./dL Ur Leukocyte Esterase Negative (NEGATIVE) Urine RBC 0-1/hpf (0-5/HPF) Urine WBC None seen (0-5/HPF) Ur Squamous Epith Cells None seen (0-5/HPF) Urine Bacteria None seen (None) Urine Mucus 1+ H (Negative) Ur Culture Indicated? Cult not indicated Chlamy pneumoniae PCR (Not Detect) Adenovirus (PCR) (Not Detect) B. pertussis DNA (PCR) (Not Detecte) B.parapertussis DNA PCR (Not Detecte) Coronavirus OC43 (PCR) (Not Detect) Coronavirus HKU1 (PCR) (Not Detect) Coronavirus 229E (PCR) (Not Detect) SARS-CoV-2 (PCR) (Not Detecte) Coronavirus NL63 (PCR) (Not Detect) Human Metapneumovir PCR (Not Detect) Influenza Type A (PCR) (Not Detect) Influenza Type B (PCR) (Not Detect) M. pneumoniae (PCR) (Not Detect) Parainfluenza 1 (PCR) (Not Detect) Parainfluenza 2 (PCR) (Not Detect) Parainfluenza 3 (PCR) (Not Detect) Parainfluenza 4 (PCR) (Not Detect) RSV (PCR) (Not Detect) Entero/Rhino (PCR) (Not Detect) 10/03/21 Range/Units 19:47 WBC (4.5-11.0) X10^3/uL RBC (4.0-5.2) X10^6/uL Hgb (12.0-16.0) g/dL Hct (36-46) % MCV (80-100) fL MCH (26-34) PG MCHC (30-36) % RDW (11.6-14.8) % Plt Count (150-400) X10^3/uL Neut % (Auto) (50-75) % Lymph % (Auto) (25-40) % [place] % (Auto) (3-14) % Eos % (Auto) (2-4) % Baso % (Auto) (0-2) % Neut # (Auto) (5275-9506) /uL Lymph # (Auto) (1811-7462) /uL [place] # (Auto) (0-900) /uL Eos # (Auto) (0-450) /uL Baso # (Auto) (0-100) /uL D-Dimer (<230) ng/mL ABG pH (7.35-7.45) ABG pCO2 (35-45) mmHg ABG pO2 (80-100) mmHg ABG HCO3 (22-26) mmol/L ABG Total CO2 (21-31) mmol/L ABG O2 Saturation (95-100) % ABG Base Excess (-2-2) mmol/L FiO2 Sodium (137-145) mmol/L Potassium (3.4-5.1) mmol/L Chloride (98-107) mmol/L Carbon Dioxide (22-32) mmol/L BUN (7-17) mg/dL Creatinine (0.52-1.04) mg/dL Estimated GFR (>60) mL/min BUN/Creatinine Ratio (6-22) Glucose (80-110) mg/dL Lactate (0.7-2.1) mmol/L Calcium (8.4-10.2) mg/dL Magnesium (1.6-2.3) mg/dL Total Bilirubin (0.2-1.3) mg/dL AST (14-36) IU/L ALT (<35) IU/L Alkaline Phosphatase (38-126) U/L Troponin I (0.01-0.034) ng/mL NT-Pro-B Natriuret Pep (<125) pg/mL Total Protein (6.3-8.2) g/dL Albumin (3.5-5.0) g/dL Globulin (1.7-4.1) g/dL Albumin/Globulin Ratio (1.0-2.8) Lipase (23-300) U/L Procalcitonin (<0.5) ng/mL Urine Color Urine Appearance Urine pH (4.5-8.0) Ur Specific [place] (1.000-1.035) Urine Protein (Negative) Urine Glucose (UA) (Negative) g/dL Urine Ketones (NEGATIVE) Urine Occult Blood (Negative) Urine Nitrate (Negative) Urine Bilirubin (NEGATIVE) Urine Urobilinogen (0.2) E.U./dL Ur Leukocyte Esterase (NEGATIVE) Urine RBC (0-5/HPF) Urine WBC (0-5/HPF) Ur Squamous Epith Cells (0-5/HPF) Urine Bacteria (None) Urine Mucus (Negative) Ur Culture Indicated? Chlamy pneumoniae PCR Not detected (Not Detect) Adenovirus (PCR) Not detected (Not Detect) B. pertussis DNA (PCR) Not detected (Not Detecte) B.parapertussis DNA PCR Not detected (Not Detecte) Coronavirus OC43 (PCR) Not detected (Not Detect) Coronavirus HKU1 (PCR) Not detected (Not Detect) Coronavirus 229E (PCR) Not detected (Not Detect) SARS-CoV-2 (PCR) Not detected (Not Detecte) Coronavirus NL63 (PCR) Not detected (Not Detect) Human Metapneumovir PCR Not detected (Not Detect) Influenza Type A (PCR) Not detected (Not Detect) Influenza Type B (PCR) Not detected (Not Detect) M. pneumoniae (PCR) Not detected (Not Detect) Parainfluenza 1 (PCR) Not detected (Not Detect) Parainfluenza 2 (PCR) Not detected (Not Detect) Parainfluenza 3 (PCR) Detected H (Not Detect) Parainfluenza 4 (PCR) Not detected (Not Detect) RSV (PCR) Not detected (Not Detect) Entero/Rhino (PCR) Not detected (Not Detect) Imaging Data Chest x-ray: My Impression: Concern for cephalization and fluid overload as well as patchy infiltrates. Radiologist's Impression: FINDINGS:? ? Surgical changes and devices:? Prior right breast lumpectomy..? ? Lungs and pleura:? Extensive patchy multifocal alveolar opacity seen throughout the left lung.? There is also patchy opacity seen in the right upper lobe medially. ? Mediastinum:? Slight leftward shift of the cardiomediastinal structures compared to the prior study.? Heart at the upper limits of normal in size. ? Bones and chest wall:? Moderate to severe degeneration of both shoulder joints, left much worse than right.? Surgical clips in the right breast. ? IMPRESSION:? ? 1. Patchy multifocal bilateral alveolar opacities, left much more extensive than right.? This is probably infection, less likely inflammation or metastatic disease given known history of breast cancer. ? 2. Upper limits of normal heart size.? ? ? Dictated by: Funmilayo Dickey M.D. on 10/03/2021 at 19:36 ?? CT PE study: Radiologist's Impression: FINDINGS:? Image quality:? Repeat study is diagnostic.? ? Pulmonary arteries:? Pulmonary arteries demonstrate no intraluminal filling defects to suggest central pulmonary embolism.? There is enlargement of the pulmonary arteries, with the main pulmonary artery measuring up to 3.1 cm suggestive of pulmonary arterial hypertension.? ? Lungs and pleura:? There are bilateral patchy areas of ground-glass opacity and associated septal thickening with extensive confluent involvement in the left upper and lower lobes.? A few patchy indistinct small nodular areas of consolidation are also demonstrated within the left lung base.? No pleural effusions or pneumothorax.? The trachea and central airways are patent. ? Mediastinum:? Heart size is normal, without pericardial effusion.? There is coronary arterial vascular calcification.? No mediastinal or hilar adenopathy.? Thoracic aorta is normal in caliber and enhancement.? Esophagus is normal in caliber, with a small hiatal hernia.? ? Bones and chest wall:? No suspicious bony lesions.? Ribs and thoracic spine appear intact throughout.? No axillary or supraclavicular adenopathy.? There is periarticular soft tissue thickening and calcifications around the left glenohumeral joint.? ? Abdomen:? Visualized upper abdomen demonstrates nodular contour of the visualized liver compatible with cirrhosis.? There are dependent gallstones within a partially visualized distended gallbladder.? There is splenomegaly, with the spleen measuring up to 14.8 cm.? There are bilateral renal cysts. ? IMPRESSION:? ? 1. No evidence of pulmonary embolism.? There is enlargement of the pulmonary arteries suggestive of pulmonary arterial hypertension. ? 2. Bilateral patchy ground-glass opacities and septal thickening with extensive areas of confluent involvement in the left upper and lower lobes.? A few patchy areas of nodular consolidation are also noted in the left lung base.? The findings are nonspecific but likely represent an atypical pneumonia including possible COVID-19 pneumonia.? The differential is broad and includes bacterial pneumonia, hemorrhage, or inflammatory etiologies such as hypersensitivity pneumonitis among other etiologies. ? 3. Nodular hepatic contour compatible with cirrhosis. ? 4. Cholelithiasis and distention of the partially visualized gallbladder.? Recommend correlation clinically and if there is suspicion for cholecystitis further evaluation may be obtained with ultrasound. ? 5. Splenomegaly may reflect portal hypertension. ? 6. Periarticular soft tissue thickening along the left glenohumeral joint with associated calcifications suggestive a synovitis, likely secondary to inflammatory etiologies. ? ? Dictated by: Justin Parker M.D. on 10/03/2021 at 21:20 ECG Data Interpretation: poor baseline Sinus rhythm at a rate of 82 Prolonged QT corrected to 560 No acute ischemic changes MDM Narrative Medical decision making narrative: 71-year-old woman presents with acute respiratory distress immediately placed on BiPAP. Initial concerns for sepsis, flash pulmonary edema, COVID, bacterial pneumonia, pulmonary embolism, NE with signs of fluid overload. Workup reveals parainfluenza was significant viral pneumonia no signs of COVID. Respiratory failure with good response to BiPAP initially now on CPAP and tolerating this nicely with increased responsiveness. No evidence of myocardial infarction and doing much better after a L of diuresis. No signs of bacterial infection at this time based on her procalcitonin and the remainder of her exam however she was started on Zosyn with concerns for bacterial sepsis and will likely continue this until we have the entire clinical picture sorted out. There is no evidence of myocardial infarction or acute coronary syndrome. Based on her chest CT there is a suggestion of pulmonary hypertension. There is no suggestion for stroke and she is not encephalopathic at this time. Care is reviewed with Dr. Balderas who will admit the patient to the intensive care unit. Critical Care Time Critical Care Time Critical Care Time: Yes Total Critical Care Time: 39 Attestation: Critical care time is separate from other billable procedures. There is a high probability of a significant, sudden or life-threatening deterioration that requires my full and direct attention, intervention and personal management. This critical care time includes consultation with family and other consulting doctors, review of records, and interpretation of data from labs, EKGs and imaging as well as managements of acute respiratory failure, viral pneumonia with concerns for respiratory, circulatory, cardiac, neurologic, cardiovascular compromise on initial presentation. Discharge Plan Departure Patient Disposition: Admitted As Inpatient Clinical Impression: Parainfluenza virus pneumonia, Respiratory failure, Pulmonary hypertension, Volume overload, Prolonged Q-T interval on ECG Referrals: Staci Tovar MD [Primary Care Provider] -
[2021-10-03 19:15] LABS: Lactate (Lactic Acid) 5.2 mmol/L (0.7-2.1)
[2021-10-03 19:16] LABS: pH ABG 7.44 (7.35-7.45)
[2021-10-03 19:17] LABS: HCO3 ABG 22 mmol/L (22-26); Oxygen Saturation ABG 97 % (95-100); PCO2 ABG 33.5 mmHg (35-45); PO2 ABG 84 mmHg (80-100); TCO2 ABG 23 mmol/L (21-31)
[2021-10-03 19:18] LABS: Fractionated Inspired Oxygen 60
[2021-10-03 19:20] LABS: Alanine Aminotransferase 40 IU/L (<35)
[2021-10-03 19:25] LABS: NT-proBNP (BNP-Adult 18+) 2210 pg/mL (<125); Troponin I < 0.012 ng/mL (0.01-0.034)
[2021-10-03 19:30] LABS: Procalcitonin 0.16 ng/mL (<0.5)
[2021-10-03 19:32] LABS: D Dimer 1199 ng/mL (<230)
[2021-10-03] MEDS: PIPERACILLIN/TAZO 4.5 GM in SODIUM CHLORIDE 0.9% 100 ML IV (19:57)
[2021-10-03 20:02] LABS: Appearance Urine UA CLEAR; Color Urine UA YELLOW; Glucose Urine UA NEGATIVE (Negative); Ketones Urine UA NEGATIVE (NEGATIVE); Leukocyte Esterase Urine UA NEGATIVE (NEGATIVE); Nitrite Urine UA NEGATIVE (Negative); Occult Blood Urine UA NEGATIVE (Negative); Protein Urine UA 2+ (Negative)
--- NOTE | 2021-10-03 20:13 | DI.CT.S_ITS ---
PROCEDURE: CT ANGIO CHEST PE PROTOCOL INDICATIONS: elevated d dimer, respiratory distress TECHNIQUE: After the administration of intravenous contrast, initial scan was performed. Patient experience panic in the scanner with extensive associated motion artifact rendering the study nondiagnostic. As per the technologist nodes, following consultation with Dr. Cowan a repeat study was performed with repeat administration of intravenous contrast followed by 2 mm thick sections acquired from the pulmonary apices to the posterior costophrenic angles. 3-dimensional maximum intensity projection (MIP) coronal and sagittal reformats were then acquired through the thorax. For radiation dose reduction, the following was used: automated exposure control, adjustment of mA and/or kV according to patient size. COMPARISON: [facility], CR, XR CHEST 1V, 10/03/2021, 19:16. FINDINGS: Image quality: Repeat study is diagnostic. Pulmonary arteries: Pulmonary arteries demonstrate no intraluminal filling defects to suggest central pulmonary embolism. There is enlargement of the pulmonary arteries, with the main pulmonary artery measuring up to 3.1 cm suggestive of pulmonary arterial hypertension. Lungs and pleura: There are bilateral patchy areas of ground-glass opacity and associated septal thickening with extensive confluent involvement in the left upper and lower lobes. A few patchy indistinct small nodular areas of consolidation are also demonstrated within the left lung base. No pleural effusions or pneumothorax. The trachea and central airways are patent. Mediastinum: Heart size is normal, without pericardial effusion. There is coronary arterial vascular calcification. No mediastinal or hilar adenopathy. Thoracic aorta is normal in caliber and enhancement. Esophagus is normal in caliber, with a small hiatal hernia. Bones and chest wall: No suspicious bony lesions. Ribs and thoracic spine appear intact throughout. No axillary or supraclavicular adenopathy. There is periarticular soft tissue thickening and calcifications around the left glenohumeral joint. Abdomen: Visualized upper abdomen demonstrates nodular contour of the visualized liver compatible with cirrhosis. There are dependent gallstones within a partially visualized distended gallbladder. There is splenomegaly, with the spleen measuring up to 14.8 cm. There are bilateral renal cysts. IMPRESSION: 1. No evidence of pulmonary embolism. There is enlargement of the pulmonary arteries suggestive of pulmonary arterial hypertension. 2. Bilateral patchy ground-glass opacities and septal thickening with extensive areas of confluent involvement in the left upper and lower lobes. A few patchy areas of nodular consolidation are also noted in the left lung base. The findings are nonspecific but likely represent an atypical pneumonia including possible COVID-19 pneumonia. The differential is broad and includes bacterial pneumonia, hemorrhage, or inflammatory etiologies such as hypersensitivity pneumonitis among other etiologies. 3. Nodular hepatic contour compatible with cirrhosis. 4. Cholelithiasis and distention of the partially visualized gallbladder. Recommend correlation clinically and if there is suspicion for cholecystitis further evaluation may be obtained with ultrasound. 5. Splenomegaly may reflect portal hypertension. 6. Periarticular soft tissue thickening along the left glenohumeral joint with associated calcifications suggestive a synovitis, likely secondary to inflammatory etiologies. Dictated by: Justin Parker M.D. on 10/03/2021 at 21:20 Approved by: Justin Parker M.D. on 10/03/2021 at 21:33
[2021-10-03 20:19] LABS: Bilirubin Urine UA Negative (NEGATIVE); pH Urine UA 5.5 (4.5-8.0)
[2021-10-03] MEDS: FUROSEMIDE 40 MG/4 ML VIAL IV (20:25)
[2021-10-03 20:30] LABS: Bacteria Urine None Seen; Culture Indicated Urine Cult Not Indicated; Mucus Urine 1+ (Negative); RBC Urine 0-1/HPF (0-5/HPF); Squamous Epithelial Cell Urine None Seen (0-5/HPF); WBC Urine None Seen (0-5/HPF)
[2021-10-03 20:46] LABS: Adenovirus Not Detected (Not Detect); B. parapertussis Not Detected (Not Detecte); Bordetella pertussis Not Detected (Not Detecte); Coronavirus 229E Not Detected (Not Detect); Coronavirus HKU1 Not Detected (Not Detect); Coronavirus NL 63 Not Detected (Not Detect); Coronavirus OC43 Not Detected (Not Detect); Human Metapneumovirus Not Detected (Not Detect); Human Rhinovirus/Enterovirus Not Detected (Not Detect); Influenza A Not Detected (Not Detect); Influenza B Not Detected (Not Detect); Mycoplasma pneumoniae Not Detected (Not Detect); Parainfluenza Virus 1 Not Detected (Not Detect); Parainfluenza Virus 2 Not Detected (Not Detect); Parainfluenza Virus 3 Detected (Not Detect); Parainfluenza Virus 4 Not Detected (Not Detect); Respiratory Syncytial Virus Not Detected (Not Detect); SARS- CoV-2 Not Detected (Not Detecte)
[2021-10-03 20:47] LABS: Chlamydophila pneumoniae Not Detected (Not Detect)
[2021-10-03 20:55] LABS: Reflexed Lactate in 2 Hours Y
[2021-10-03] MEDS: ALBUTEROL 2.5 MG/3 ML NEB (ADULT) INH (21:00)
[2021-10-03] MEDS: HYDROMORPHONE 0.5 MG INJ IV (21:00)
[2021-10-03 21:37] LABS: Lactate 2HR (Lactic Acid Rflx) 1.6 mmol/L (0.7-2.1)
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
--- NOTE | 2021-10-03 23:30 | PC.NURSE ---
Addendum entered by Steffanie Dinh R.N. 10/04/21 06:41: 0630-Three gold colored rings placed in specimen cup with watch and placed on the sink. Addendum entered by Steffanie Dinh R.N. 10/04/21 05:43: 0530- Patient at a RASS -4. Titrating sedation down. Patient is breathing with the vent. Good UOP, color chandan. Restraints in place per protocol. Patient is stable at this time. Addendum entered by Steffanie Dinh R.N. 10/04/21 04:03: 0000- Patient did not respond to medications and ABG shows hypoxia. Plan to intubate per Dr. Balderas, who has called Anesthesia. Respiratory therapy set up. Patient continues to deteriorate, unable to follow commands and is combative. Dr. Balderas proceded with RSI. Soft wrist restraints initiated for safety as patient was pulling at lines and hitting staff. Patient sedated and intubated without any complications. 0130- Peripheral lines failing, and patient difficult to sedate. Dr. Balderas notified and a central line was placed in the Left chest, CXR confirmed and lines in use by 0200. 0200- Respiratory Therapy pulled ETT tube back 3cm per MD order. ETT 7.5 and now is 21 at the lip. 0230- Patient transported to radiology for head CT per order. Patient tolerated procedure well. Temperature is now down to 99.7 core. Patient is in NSR. Message left with patient family via phone. No one is answering. Coordinator attempted several times to reach family to update regarding the change in condition. Addendum entered by Steffanie Dinh R.N. 10/03/21 23:53: 2350- Patient is restless and respirations remain in the high 30's to 40's. Patient is attempting to get oob and does not follow commands. Saturations are 92% on 40% FI02, but patient is appearing agitated, and is thrashing in the bed. ROD MILL OPERATOR remaining at bedside for safety at this time. Call out to Dr. Balderas. Orders rec. Original Note: 2230- Admit from Emergency to 227. Patient on CPap at 40% FI02. Respirations in the high 30's to 40's. Dr. Balderas is aware. Patient does not seem fully cognizant but is able to state her name and what city she is in and that she is in the hospital. Patient remains restless her saturations are in the mid 90's. Patient is on Droplet Isolation for Parainfluenza 3. Patient is NSR with a prolonged QT Dr. Balderas is aware. Will monitor.
[2021-10-04] VITALS (61 sets, daily range): BP systolic 118–170; BP diastolic 57–109; PULSE 74–93; RESP 14–70; TEMP 37–38.7; O2SAT 88–98
[2021-10-04] MEDS: LORazepam 2 MG/ML INJ 1 MG IV (00:03)
--- NOTE | 2021-10-04 00:44 | DI.CT.S_ITS ---
PROCEDURE: CT HEAD/BRAIN WO CON INDICATIONS: Altered Mental Status TECHNIQUE: Noncontrast 4.5 mm thick angled axial sections acquired from the foramen magnum to the vertex, with coronal and sagittal reformats. For radiation dose reduction, the following was used: automated exposure control, adjustment of mA and/or kV according to patient size. COMPARISON: None. FINDINGS: Image quality: Excellent. CSF spaces: Basal cisterns are patent. No extra-axial fluid collections. The ventricles are symmetric in size and shape. Brain: No intracranial bleeds or masses. There is cerebral volume loss for age, with resultant ventricular and sulcal prominence. There are periventricular and deep white matter chronic small vessel ischemic changes. There is intracranial internal carotid artery atherosclerosis. Skull and face: Calvarium and visualized facial bones appear intact, without suspicious lesions. Sinuses: Severe mucosal thickening noted in the right maxillary sinus and the bilateral sphenoid sinuses. Mild scattered mucosal thickening in the ethmoid air cells. The mastoids are clear. IMPRESSION: No acute intracranial disease process. Dictated by: Kristyn Cook MD, PhD on 10/04/2021 at 7:34 Approved by: Kristyn Cook MD, PhD on 10/04/2021 at 7:36
[2021-10-04] MEDS: HYDROMORPHONE 0.5 MG INJ IV (00:46)
--- NOTE | 2021-10-04 00:59 | DI.RAD.S_ITS ---
PROCEDURE: XR CHEST 1V INDICATIONS: intubated TECHNIQUE: One view of the chest was acquired. COMPARISON: [facility], CT, CT ANGIO CHEST PE PROTOCOL, 10/03/2021, 20:17. [facility], CR, XR CHEST 1V, 10/03/2021, 19:16. FINDINGS: Surgical changes and devices: There is a new endotracheal tube with the tip approximately 1 cm from the thong. Lungs and pleura: There are persistent bilateral patchy air space opacities with areas of confluence in the left lung and increased consolidation in the left lung base with air bronchograms. There is a small left pleural effusion. No definite pneumothorax. Mediastinum: Mediastinal contours appear unchanged. Heart size is mildly enlarged. Bones and chest wall: No suspicious bony lesions. Overlying soft tissues appear unremarkable. IMPRESSION: 1. New endotracheal tube extends to 1 cm from the thong. Recommend withdrawal by approximately 3 cm. Findings discussed with Dr. Balderas on 10/04/21 at 1:27 AM. 2. Persistent bilateral patchy airspace opacities with areas of confluence on the left including increased consolidation in the left lung base. Findings likely represent pneumonia. 3. Small left pleural effusion. Dictated by: Justin Parker M.D. on 10/04/2021 at 1:19 Approved by: Justin Parker M.D. on 10/04/2021 at 1:32
--- NOTE | 2021-10-04 01:02 | PM.PROC.1 ---
Procedures Date/Time Date of procedure: 10/04/21 Time of procedure: 00:50 Intubation Time out performed: Yes Sedative: etomidate Mg given: 20 Paralytic: succinylcholine Mg given: 100 Laryngoscope: fiber optic video scope ET tube size: 7.5 ET tube uncuffed: No Tube secured depth (cm): 24 Tube secured location: lips Tube placement confirmation: visualized tube passing through cords, equal breath sounds bilaterally and confirmation by capnometry Patient tolerated procedure: well Intubation complications: none Additional comments: Emergent procedure due to extreme agitation and danger of physical injury to the patients self and to staff, who were struggling to keep her in the bed.
[2021-10-04 01:12] LABS: Ethanol (ETOH) < 10 mg/dL
[2021-10-04] MEDS: ACETAMINOPHEN 650 MG SUPP PR ×2 (01:13→20:36)
[2021-10-04] MEDS: propofoL 1,000 MG/100 ML VIAL 5.96 MG IV (01:14)
[2021-10-04 01:15] LABS: UR Morphine/Opiate cutoff 300 Negative (Negative); Ur Creatinine 20 (Normal); Ur Specific Gravity 1.015 (Normal); Urine Amphetamines Negative (Negative); Urine Barbiturates Negative (Negative); Urine Benzodiazepines Negative (Negative); Urine Cocaine Negative (Negative); Urine MDMA Negative (Negative); Urine Methadone Negative (Negative); Urine Methamphetamines Negative (Negative); Urine Oxycodone Negative (Negative); Urine Phencyclidine Negative (Negative); Urine Tetrahydrocannabinol Negative (Negative); Urine Tricyclic Antidepressant Positive (Negative); Urine pH 5 (Normal)
--- NOTE | 2021-10-04 01:21 | PM.CN.EICU ---
History of Present Illness Consult details Date Patient Seen: 10/04/21 Chief complaint: sob, glf, desat Reason for consult: Acute hypoxic respiratory failure Consent obtained for tele-special skills officer care: No (Unknown; patient emergenc) Patient Location: ICU Provider location (State): [place] Narrative: 71 y.o. female w/ PMHx of HTN, HLD, T2DM, and depression who was brought in to ED with weakness follow a GLF. WBC was elevated at 12,200 and she was in respiratory distress. NIPPV was started. D-dimer was elevated @ 1199 and her BNP was also elevated @ 2210, She was given a dose of Lasix with some improvement. She was cultured and given a dose of Zosyn. Pulmonary CTA did now show any PE; LANDY and LLL GGOs were seen. Respiratory panel returned (+) for parainfluenza; other viruses were excluded. After ICU arrival, she became more dyspneic after a period of relative stability. Hydromorphone and lorazepam were given without effect. I responede to an eLert @ 0045; preparations were underway for an intubation due to agitation, RR in 40s, and O2 saturation in 70s (albeit with very poor waveforms). She was febrile @ 100.8. MRSA swab was (-). Initial lactate was 5.2 but improved to 1.6. [facility] Medical History (Updated 10/04/21 @ 01:28 by Jem Perez MD) Acid reflux Chronic insomnia Hyperlipidemia Hypertension Hypothyroidism (acquired) Social History household members: spouse Smoking Status: Unknown if ever smoked alcohol intake: current Current Medications Current Medications Medications: Home Medications amlodipine 10/03/21 [History] atorvastatin 10/03/21 [History] cyclobenzaprine 10/03/21 [History] fluoxetine 10/03/21 [History] gabapentin 10/03/21 [History] levothyroxine 10/03/21 [History] meloxicam 10/03/21 [History] metformin 10/03/21 [History] metoprolol tartrate 10/03/21 [History] omeprazole 10/03/21 [History] trazodone 10/03/21 [History] zolpidem 10/03/21 [History] Exam Vital Signs (past 8 hours): - 10/03/21 18:35 10/03/21 18:39 10/03/21 18:40 Temperature 97.7 F Pulse Rate 93 H 92 H 92 H Respiratory Rate 35 H 40 H 40 H Blood Pressure 160/78 H 160/78 H Pulse Oximetry 85 L 84 L 85 L 10/03/21 18:53 10/03/21 19:00 10/03/21 19:16 Temperature Pulse Rate 87 86 84 Respiratory Rate 48 H 40 H 33 H Blood Pressure 159/71 H 124/57 L 123/61 Pulse Oximetry 96 96 94 10/03/21 19:30 10/03/21 19:45 10/03/21 20:00 Temperature 97.9 F 100.8 F H Pulse Rate 84 82 83 Respiratory Rate 31 H 42 H 39 H Blood Pressure 128/60 128/60 124/58 L Pulse Oximetry 94 96 95 10/03/21 20:15 10/03/21 20:30 10/03/21 20:42 Temperature 100.2 F H 100.9 F H 100.9 F H Pulse Rate 83 82 82 Respiratory Rate 42 H 39 H Blood Pressure 127/60 112/64 111/63 Pulse Oximetry 94 96 91 10/03/21 21:00 10/03/21 21:10 10/03/21 21:30 Temperature 100.8 F H 100.8 F H 100.8 F H Pulse Rate 80 81 82 Respiratory Rate 22 Blood Pressure 148/60 H Pulse Oximetry 92 91 92 10/03/21 21:59 10/03/21 22:00 10/03/21 22:01 Temperature 100.9 F H 100.9 F H 100.9 F H Pulse Rate 82 81 81 Respiratory Rate 45 H 46 H Blood Pressure 159/66 H 142/78 H Pulse Oximetry 96 96 95 10/03/21 22:15 10/03/21 23:00 10/03/21 23:08 Temperature 100.9 F H 100.8 F H Pulse Rate 81 80 Respiratory Rate 40 H 35 H Blood Pressure 137/60 Pulse Oximetry 93 95 96 10/03/21 23:09 Temperature 100.8 F H Pulse Rate 80 Respiratory Rate 36 H Blood Pressure 111/87 Pulse Oximetry 96 Fraction of Inspired Oxygen 100 Oxygen Delivery Method CPAP Oxygen Flow Rate 15 Const Nutritional Appearance: obese Resp Effort & Inspection: respiratory distress and retractions Objective Labs Result Diagrams: 05/19/22 18:55 10/03/21 18:55 Labs: Laboratory Results - last 24 hr 10/03/21 10/03/21 10/03/21 18:55 18:55 18:55 WBC 12.2 H RBC 4.25 Hgb 12.9 Hct 38.7 MCV 90.9 MCH 30.3 MCHC 33.3 RDW 14.9 H Plt Count 214 Neut % (Auto) 77.2 H Lymph % (Auto) 13.1 L Benson % (Auto) 8.5 Eos % (Auto) 0.1 L Baso % (Auto) 1.1 Neut # (Auto) 9400 H Lymph # (Auto) 1600 Benson # (Auto) 1000 H Eos # (Auto) 0 Baso # (Auto) 100 D-Dimer 1199 H ABG pH ABG pCO2 ABG pO2 ABG HCO3 ABG Total CO2 ABG O2 Saturation ABG Base Excess FiO2 Sodium 139 Potassium 3.6 Chloride 108 H Carbon Dioxide 20 L BUN 17 Creatinine 0.70 Estimated GFR > 60 BUN/Creatinine Ratio 24.3 H Glucose 163 H Lactate Calcium 8.7 Magnesium 1.9 Total Bilirubin 1.2 AST 70 H ALT 40 H Alkaline Phosphatase 176 H Troponin I < 0.012 NT-Pro-B Natriuret Pep 2210 H Total Protein 8.1 Albumin 3.7 Globulin 4.4 H Albumin/Globulin Ratio 0.8 L Lipase 121 Procalcitonin 0.16 Urine Color Urine Appearance Urine pH Ur Specific [place] Urine Protein Urine Glucose (UA) Urine Ketones Urine Occult Blood Urine Nitrate Urine Bilirubin Urine Urobilinogen Ur Leukocyte Esterase Urine RBC Urine WBC Ur Squamous Epith Cells Urine Bacteria Urine Mucus Ur Culture Indicated? Nasal Screen MRSA (PCR) U Opiates 300ng/mL cut Ur Oxycodone Screen Urine Methadone Screen Ur Barbiturates Screen U Tricyclic Antidepress Ur Phencyclidine Scrn Ur Amphetamines Screen U Methamphetamines Scrn Ur MDMA Scrn (Ecstasy) U Benzodiazepines Scrn Urine Cocaine Screen U Marijuana (THC) Screen Ethyl Alcohol Chlamy pneumoniae PCR Adenovirus (PCR) B. pertussis DNA (PCR) B.parapertussis DNA PCR Coronavirus OC43 (PCR) Coronavirus HKU1 (PCR) Coronavirus 229E (PCR) SARS-CoV-2 (PCR) Coronavirus NL63 (PCR) Human Metapneumovir PCR Influenza Type A (PCR) Influenza Type B (PCR) M. pneumoniae (PCR) Parainfluenza 1 (PCR) Parainfluenza 2 (PCR) Parainfluenza 3 (PCR) Parainfluenza 4 (PCR) RSV (PCR) Entero/Rhino (PCR) 10/03/21 10/03/21 10/03/21 18:55 18:55 19:02 WBC RBC Hgb Hct MCV MCH MCHC RDW Plt Count Neut % (Auto) Lymph % (Auto) Benson % (Auto) Eos % (Auto) Baso % (Auto) Neut # (Auto) Lymph # (Auto) Benson # (Auto) Eos # (Auto) Baso # (Auto) D-Dimer ABG pH 7.44 ABG pCO2 33.5 L ABG pO2 84 ABG HCO3 22 ABG Total CO2 23 ABG O2 Saturation 97 ABG Base Excess -2.0 FiO2 60 Sodium Potassium Chloride Carbon Dioxide BUN Creatinine Estimated GFR BUN/Creatinine Ratio Glucose Lactate 5.2 H* Calcium Magnesium Total Bilirubin AST ALT Alkaline Phosphatase Troponin I NT-Pro-B Natriuret Pep Total Protein Albumin Globulin Albumin/Globulin Ratio Lipase Procalcitonin Urine Color Urine Appearance Urine pH Ur Specific [place] Urine Protein Urine Glucose (UA) Urine Ketones Urine Occult Blood Urine Nitrate Urine Bilirubin Urine Urobilinogen Ur Leukocyte Esterase Urine RBC Urine WBC Ur Squamous Epith Cells Urine Bacteria Urine Mucus Ur Culture Indicated? Nasal Screen MRSA (PCR) U Opiates 300ng/mL cut Ur Oxycodone Screen Urine Methadone Screen Ur Barbiturates Screen U Tricyclic Antidepress Ur Phencyclidine Scrn Ur Amphetamines Screen U Methamphetamines Scrn Ur MDMA Scrn (Ecstasy) U Benzodiazepines Scrn Urine Cocaine Screen U Marijuana (THC) Screen Ethyl Alcohol < 10 Chlamy pneumoniae PCR Adenovirus (PCR) B. pertussis DNA (PCR) B.parapertussis DNA PCR Coronavirus OC43 (PCR) Coronavirus HKU1 (PCR) Coronavirus 229E (PCR) SARS-CoV-2 (PCR) Coronavirus NL63 (PCR) Human Metapneumovir PCR Influenza Type A (PCR) Influenza Type B (PCR) M. pneumoniae (PCR) Parainfluenza 1 (PCR) Parainfluenza 2 (PCR) Parainfluenza 3 (PCR) Parainfluenza 4 (PCR) RSV (PCR) Entero/Rhino (PCR) 10/03/21 10/03/21 10/03/21 19:41 19:47 21:20 WBC RBC Hgb Hct MCV MCH MCHC RDW Plt Count Neut % (Auto) Lymph % (Auto) Benson % (Auto) Eos % (Auto) Baso % (Auto) Neut # (Auto) Lymph # (Auto) Benson # (Auto) Eos # (Auto) Baso # (Auto) D-Dimer ABG pH ABG pCO2 ABG pO2 ABG HCO3 ABG Total CO2 ABG O2 Saturation ABG Base Excess FiO2 Sodium Potassium Chloride Carbon Dioxide BUN Creatinine Estimated GFR BUN/Creatinine Ratio Glucose Lactate 1.6 Calcium Magnesium Total Bilirubin AST ALT Alkaline Phosphatase Troponin I NT-Pro-B Natriuret Pep Total Protein Albumin Globulin Albumin/Globulin Ratio Lipase Procalcitonin Urine Color Yellow Urine Appearance Clear Urine pH 5.5 Ur Specific [place] 1.020 Urine Protein 2+ H Urine Glucose (UA) Negative Urine Ketones Negative Urine Occult Blood Negative Urine Nitrate Negative Urine Bilirubin Negative Urine Urobilinogen 1.0 Ur Leukocyte Esterase Negative Urine RBC 0-1/hpf Urine WBC None seen Ur Squamous Epith Cells None seen Urine Bacteria None seen Urine Mucus 1+ H Ur Culture Indicated? Cult not indicated Nasal Screen MRSA (PCR) U Opiates 300ng/mL cut Ur Oxycodone Screen Urine Methadone Screen Ur Barbiturates Screen U Tricyclic Antidepress Ur Phencyclidine Scrn Ur Amphetamines Screen U Methamphetamines Scrn Ur MDMA Scrn (Ecstasy) U Benzodiazepines Scrn Urine Cocaine Screen U Marijuana (THC) Screen Ethyl Alcohol Chlamy pneumoniae PCR Not detected Adenovirus (PCR) Not detected B. pertussis DNA (PCR) Not detected B.parapertussis DNA PCR Not detected Coronavirus OC43 (PCR) Not detected Coronavirus HKU1 (PCR) Not detected Coronavirus 229E (PCR) Not detected SARS-CoV-2 (PCR) Not detected Coronavirus NL63 (PCR) Not detected Human Metapneumovir PCR Not detected Influenza Type A (PCR) Not detected Influenza Type B (PCR) Not detected M. pneumoniae (PCR) Not detected Parainfluenza 1 (PCR) Not detected Parainfluenza 2 (PCR) Not detected Parainfluenza 3 (PCR) Detected H Parainfluenza 4 (PCR) Not detected RSV (PCR) Not detected Entero/Rhino (PCR) Not detected 10/03/21 10/04/21 22:45 00:55 WBC RBC Hgb Hct MCV MCH MCHC RDW Plt Count Neut % (Auto) Lymph % (Auto) Benson % (Auto) Eos % (Auto) Baso % (Auto) Neut # (Auto) Lymph # (Auto) Benson # (Auto) Eos # (Auto) Baso # (Auto) D-Dimer ABG pH ABG pCO2 ABG pO2 ABG HCO3 ABG Total CO2 ABG O2 Saturation ABG Base Excess FiO2 Sodium Potassium Chloride Carbon Dioxide BUN Creatinine Estimated GFR BUN/Creatinine Ratio Glucose Lactate Calcium Magnesium Total Bilirubin AST ALT Alkaline Phosphatase Troponin I NT-Pro-B Natriuret Pep Total Protein Albumin Globulin Albumin/Globulin Ratio Lipase Procalcitonin Urine Color Urine Appearance Urine pH Ur Specific [place] Urine Protein Urine Glucose (UA) Urine Ketones Urine Occult Blood Urine Nitrate Urine Bilirubin Urine Urobilinogen Ur Leukocyte Esterase Urine RBC Urine WBC Ur Squamous Epith Cells Urine Bacteria Urine Mucus Ur Culture Indicated? Nasal Screen MRSA (PCR) Negative for mrsa U Opiates 300ng/mL cut Negative Ur Oxycodone Screen Negative Urine Methadone Screen Negative Ur Barbiturates Screen Negative U Tricyclic Antidepress Positive H Ur Phencyclidine Scrn Negative Ur Amphetamines Screen Negative U Methamphetamines Scrn Negative Ur MDMA Scrn (Ecstasy) Negative U Benzodiazepines Scrn Negative Urine Cocaine Screen Negative U Marijuana (THC) Screen Negative Ethyl Alcohol Chlamy pneumoniae PCR Adenovirus (PCR) B. pertussis DNA (PCR) B.parapertussis DNA PCR Coronavirus OC43 (PCR) Coronavirus HKU1 (PCR) Coronavirus 229E (PCR) SARS-CoV-2 (PCR) Coronavirus NL63 (PCR) Human Metapneumovir PCR Influenza Type A (PCR) Influenza Type B (PCR) M. pneumoniae (PCR) Parainfluenza 1 (PCR) Parainfluenza 2 (PCR) Parainfluenza 3 (PCR) Parainfluenza 4 (PCR) RSV (PCR) Entero/Rhino (PCR) Assessment & Plan Assessment and plan (1) Respiratory failure: Qualifiers: Chronicity: acute Respiratory failure complication: hypoxia Qualified Code(s): J96.01 - Acute respiratory failure with hypoxia Status: Acute Plan: -Propofol/fentanyl analgosedation -Given BMI, start with PEEP of 10 -Continue Zosyn -Check sputum culture (2) Parainfluenza virus pneumonia: Status: Acute Plan: -See above (3) Type 2 diabetes mellitus: Status: Acute Plan: -Correction scale (4) Elevated brain natriuretic peptide (BNP) level: Status: Acute Plan: -Would check 2-D echo (5) Hyperlactatemia: Status: Acute Plan: -Would retrend given newly intubated status Time Spent With Patient Critical Care time: I spent a total of 35 minutes of critical care time on this patient's care today; this time is exclusive of procedural time.
[2021-10-04 01:39] LABS: Fractionated Inspired Oxygen 40; HCO3 ABG 25 mmol/L (22-26); Oxygen Saturation ABG 89 % (95-100); PCO2 ABG 37.9 mmHg (35-45); PO2 ABG 55 mmHg (80-100); TCO2 ABG 26 mmol/L (21-31); pH ABG 7.43 (7.35-7.45)
[2021-10-04] MEDS: fentaNYL 1,000 MCG in DEXTROSE 5% IN WATER 250 ML 18.775 MCG IV (01:45)
--- NOTE | 2021-10-04 02:14 | DI.RAD.S_ITS ---
PROCEDURE: XR CHEST 1V INDICATIONS: verify central line placement TECHNIQUE: One view of the chest was acquired. COMPARISON: [facility], CR, XR CHEST 1V, 10/04/2021, 1:05. FINDINGS: Surgical changes and devices: ET tube projects 4.8 centimeters. The thong. Central venous catheter tip projects over the mid SVC via a left subclavian approach. Lungs and pleura: Diffuse appear ossific a enriquez of the left lung with multiple air bronchograms. Focal opacification in the right lung apex. No pleural effusions or pneumothorax. Mediastinum: Mediastinal contours appear normal. Heart is mildly enlarged. Bones and chest wall: Multiple chronic right rib fractures which have healed in deformity. No suspicious bony lesions. Overlying soft tissues appear unremarkable. IMPRESSION: 1. Central venous catheter tip projects over the mid SVC. 2. Bilateral lung consolidation concerning for multifocal pneumonia. Dictated by: Kristyn Cook MD, PhD on 10/04/2021 at 7:36 Approved by: Kristyn Cook MD, PhD on 10/04/2021 at 7:38
--- NOTE | 2021-10-04 02:24 | PM.PROC.1 ---
Procedures Date/Time Date of procedure: 10/04/21 Time of procedure: 02:00 Central Line Placement Time out performed: Yes Patient placed on monitor/pulse ox: Yes MD prep: mask, gown and gloves Central line prep: Chlorhexidine scrub and sterile drapes applied Local anesthesia used: lidocaine 1% Amount of anesthesia used (ml): 2 Ultrasound used for placement: No Central line lumen inserted: triple Post procedure: sutured in place, good blood return, all ports aspirated, flushed, capped and sterile dressing applied Post procedure x-ray: tip of catheter in good position (Catheter crosses midline, appears to be in the SVC) and no pneumothorax seen Patient tolerated procedure: well and no complications Complications: none Additional comments: Good backflow of obvious venous coloration, easy flush on all 3 ports.
[2021-10-04] MEDS: propofoL 1,000 MG/100 ML VIAL 29.801 MG IV (02:58)
[2021-10-04] MEDS: PIPERACILLIN/TAZO 3.375 GM in SODIUM CHLORIDE 0.9% 100 ML IV ×3 (04:01→20:12)
[2021-10-04 04:09] LABS: pH ABG 7.37 (7.35-7.45)
[2021-10-04 04:10] LABS: Fractionated Inspired Oxygen 100; HCO3 ABG 28 mmol/L (22-26); Oxygen Saturation ABG 99 % (95-100); PCO2 ABG 47.7 mmHg (35-45); PO2 ABG 119 mmHg (80-100); TCO2 ABG 29 mmol/L (21-31)
--- NOTE | 2021-10-04 04:17 | RT ---
ABG results dated for 10/03/2021 at 0339 is the incorrect date. ABG results collection date: 10/04/2021 @ 0339 pH 7.374 pCO2 47.7 pO2 119 HCO3 27.8 BE 3 tCO2 29 sO2 99% on VENT AC 20/450/100%/+12 FiO2 decreased to 75% post ABG results. RN notified
[2021-10-04 05:45] LABS: Alanine Aminotransferase 30 IU/L (<35); Albumin 3.1 g/dL (3.5-5.0); Albumin Globulin Ratio 0.8 (1.0-2.8); Alkaline Phosphatase 128 U/L (38-126); Aspartate Aminotransferase 56 IU/L (14-36); BUN Creatinine Ratio 18.6 (6-22); Bilirubin Total 1.1 mg/dL (0.2-1.3); Blood Urea Nitrogen 18 mg/dL (7-17); Calcium 7.9 mg/dL (8.4-10.2); Carbon Dioxide 26 mmol/L (22-32); Chloride 109 mmol/L (98-107); Estimated Glomerular Filt Rate > 60 mL/min (>60); Globulin 3.8 g/dL (1.7-4.1); Glucose 146 mg/dL (80-110); HEMOLYSIS < 15 (0-50); Potassium 3.1 mmol/L (3.4-5.1); Sodium 142 mmol/L (137-145); Total Protein 6.9 g/dL (6.3-8.2)
[2021-10-04 05:52] LABS: NT-proBNP (BNP-Adult 18+) 2650 pg/mL (<125)
[2021-10-04] MEDS: CHLORHEXIDINE GLUCONATE 15 ML CUP PO ×3 (05:56→17:47)
[2021-10-04 06:12] LABS: Hemoglobin 11.4 g/dL (12.0-16.0); Mean Corpuscular HGB Conc 32.5 % (30-36); Mean Corpuscular Hemoglobin 29.7 PG (26-34); Mean Corpuscular Volume 91.3 fL (80-100); Platelet Count 165 X10^3/uL (150-400); Red Blood Cell Count 3.84 X10^6/uL (4.0-5.2); Red Cell Distribution Width 14.3 % (11.6-14.8); White Blood Cell Count 11.1 X10^3/uL (4.5-11.0)
[2021-10-04 06:14] LABS: Add Manual Diff / Slide Review YES
[2021-10-04] MEDS: propofoL 1,000 MG/100 ML VIAL 17.881 MG IV (06:21)
[2021-10-04 07:19] LABS: Anisocytosis 2+; Hypochromasia 1+; Neutrophils Absolute Manual 7881 /uL (3000-5900); Polychromasia 1+; Total Cells Counted 100
--- NOTE | 2021-10-04 08:49 | PM.PN.1 ---
Subjective Subjective Date Patient Seen: 10/04/21 Interval history: BRIEF HPI THIS IS A 71-YEAR-OLD FEMALE BROUGHT TO THE HOSPITAL WITH SIGNS OF ACUTE TODAYTODAY RESPIRATORY FAILURE PATIENT INTUBATED ON 10/03 HAS A LEFT SUBCLAVIAN CENTRAL LINE INSERTED ON 10/03 CRITICAL CARE TEAM CONSULTED PATIENT IS POSITIVE FOR PARAINFLUENZA 3 STARTED ON TUBE FEEDING 10/04 TODAY UNABLE TO OBTAIN DUE TO CURRENT CONDITION Exam Vital Signs (past 8 hours): - 10/04/21 01:00 10/04/21 01:02 10/04/21 01:11 Temperature 101.7 F H 101.7 F H 101.7 F H Pulse Rate 93 H 93 H 93 H Respiratory Rate 14 50 H 67 H Blood Pressure 161/72 H 155/88 H Pulse Oximetry 91 92 88 L 10/04/21 01:13 10/04/21 01:21 10/04/21 01:30 Temperature 101.7 F H 101.7 F H 101.7 F H Pulse Rate 92 H 92 H Respiratory Rate 70 H 42 H Blood Pressure 170/109 H Pulse Oximetry 89 L 95 10/04/21 01:34 10/04/21 01:45 10/04/21 02:00 Temperature 101.5 F H 101.3 F H Pulse Rate 91 H 84 Respiratory Rate 41 H 33 H Blood Pressure 170/74 H 123/61 Pulse Oximetry 93 94 92 10/04/21 02:30 10/04/21 02:31 10/04/21 03:00 Temperature 100.8 F H 100.8 F H 100.6 F H Pulse Rate 80 80 Respiratory Rate 31 H 27 H Blood Pressure 129/61 133/64 Pulse Oximetry 92 92 10/04/21 03:30 10/04/21 03:31 10/04/21 03:33 Temperature 100.2 F H Pulse Rate 78 77 Respiratory Rate 24 Blood Pressure 123/57 L Pulse Oximetry 96 93 95 10/04/21 04:00 10/04/21 04:30 10/04/21 05:00 Temperature 99.9 F H 99.1 F 99.1 F Pulse Rate 75 75 75 Respiratory Rate 32 H 26 H 20 Blood Pressure 121/58 L 118/59 L 120/61 Pulse Oximetry 93 95 97 10/04/21 05:30 10/04/21 05:45 10/04/21 06:00 Temperature 99.1 F 99.0 F Pulse Rate 75 74 Respiratory Rate 20 20 Blood Pressure 119/57 L 122/58 L Pulse Oximetry 98 96 96 10/04/21 07:00 10/04/21 07:30 10/04/21 08:00 Temperature 99.0 F 99.0 F 99.1 F Pulse Rate 76 77 78 Respiratory Rate 20 20 20 Blood Pressure 122/57 L 125/61 118/61 Pulse Oximetry 96 94 94 Fraction of Inspired Oxygen 55 Oxygen Delivery Method Mechanical Ventilation Oxygen Flow Rate 15 Narrative Exam Narrative: INTUBATED ; OBESE HEAD ATRAUMATIC AND NORMOCEPHALIC NECK : NO LYMPHADENOPATHY; NO CAROTID BRUITS; NO NECK MASS EYE: PERRLA, NORMAL CONJUNCTIVA; NO JAUNDICE CHEST: REGULAR RATE. NO RUBS. PMI IS NON DISPLACED. NO MURMURS; NORMAL S1-S2 PULMONARY: DECREASED BS OVER THE BASES. BIBASILAR CRACKLES NOTED; NO PLEURAL RUBS ABDOMEN: SOFT. NONDISTENDED. BOWEL SOUNDS ARE PRESENT IN ALL 4 QUADRANTS. NO MASS. EXTREMITIES: 2+ PITTING NICKOLAS LOWER EDEMA.. NO CYANOSIS OR CLUBBING NOTED. NEURO: CRANIAL NERVES 2-12 GROSSLY INTACT. NO FOCAL NEUROLOGICAL DEFICIT NOTED. SENSATIONS INTACT MSK: ADEQUATE PASSIVE RANGE OF MOTION FOR AGE. NO JOINT EFFUSION. NO SIGN OF TRAUMA SKIN: FAIR SKIN TURGOR FOR AGE. NO OPEN LESIONS : NORMAL EXTERNAL GENITALIA. 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 PSYCH : UNABLE TO ASSESS Objective Labs Result Diagrams: 10/04/21 05:00 10/04/21 05:00 Labs: Laboratory Results - last 24 hr 10/03/21 10/03/21 10/03/21 03:39 18:55 18:55 WBC 12.2 H RBC 4.25 Hgb 12.9 Hct 38.7 MCV 90.9 MCH 30.3 MCHC 33.3 RDW 14.9 H Plt Count 214 Neut % (Auto) 77.2 H Lymph % (Auto) 13.1 L Early % (Auto) 8.5 Eos % (Auto) 0.1 L Baso % (Auto) 1.1 Neut # (Auto) 9400 H Lymph # (Auto) 1600 Early # (Auto) 1000 H Eos # (Auto) 0 Baso # (Auto) 100 Total Counted Seg Neutrophils % Band Neutrophils % Lymphocytes % (Manual) Monocytes % (Manual) Neutrophils # (Manual) RBC Morphology Polychromasia Hypochromasia Anisocytosis D-Dimer 1199 H ABG pH 7.37 ABG pCO2 47.7 H ABG pO2 119 H ABG HCO3 28 H ABG Total CO2 29 ABG O2 Saturation 99 ABG Base Excess 3.0 H FiO2 100 Sodium Potassium Chloride Carbon Dioxide BUN Creatinine Estimated GFR BUN/Creatinine Ratio Glucose Lactate Calcium Magnesium Total Bilirubin AST ALT Alkaline Phosphatase Troponin I NT-Pro-B Natriuret Pep Total Protein Albumin Globulin Albumin/Globulin Ratio Lipase Procalcitonin Urine Color Urine Appearance Urine pH Ur Specific [place] Urine Protein Urine Glucose (UA) Urine Ketones Urine Occult Blood Urine Nitrate Urine Bilirubin Urine Urobilinogen Ur Leukocyte Esterase Urine RBC Urine WBC Ur Squamous Epith Cells Urine Bacteria Urine Mucus Ur Culture Indicated? Nasal Screen MRSA (PCR) U Opiates 300ng/mL cut Ur Oxycodone Screen Urine Methadone Screen Ur Barbiturates Screen U Tricyclic Antidepress Ur Phencyclidine Scrn Ur Amphetamines Screen U Methamphetamines Scrn Ur MDMA Scrn (Ecstasy) U Benzodiazepines Scrn Urine Cocaine Screen U Marijuana (THC) Screen Ethyl Alcohol Chlamy pneumoniae PCR Adenovirus (PCR) B. pertussis DNA (PCR) B.parapertussis DNA PCR Coronavirus OC43 (PCR) Coronavirus HKU1 (PCR) Coronavirus 229E (PCR) SARS-CoV-2 (PCR) Coronavirus NL63 (PCR) Human Metapneumovir PCR Influenza Type A (PCR) Influenza Type B (PCR) M. pneumoniae (PCR) Parainfluenza 1 (PCR) Parainfluenza 2 (PCR) Parainfluenza 3 (PCR) Parainfluenza 4 (PCR) RSV (PCR) Entero/Rhino (PCR) 10/03/21 10/03/21 10/03/21 18:55 18:55 18:55 WBC RBC Hgb Hct MCV MCH MCHC RDW Plt Count Neut % (Auto) Lymph % (Auto) Early % (Auto) Eos % (Auto) Baso % (Auto) Neut # (Auto) Lymph # (Auto) Early # (Auto) Eos # (Auto) Baso # (Auto) Total Counted Seg Neutrophils % Band Neutrophils % Lymphocytes % (Manual) Monocytes % (Manual) Neutrophils # (Manual) RBC Morphology Polychromasia Hypochromasia Anisocytosis D-Dimer ABG pH ABG pCO2 ABG pO2 ABG HCO3 ABG Total CO2 ABG O2 Saturation ABG Base Excess FiO2 Sodium 139 Potassium 3.6 Chloride 108 H Carbon Dioxide 20 L BUN 17 Creatinine 0.70 Estimated GFR > 60 BUN/Creatinine Ratio 24.3 H Glucose 163 H Lactate 5.2 H* Calcium 8.7 Magnesium 1.9 Total Bilirubin 1.2 AST 70 H ALT 40 H Alkaline Phosphatase 176 H Troponin I < 0.012 NT-Pro-B Natriuret Pep 2210 H Total Protein 8.1 Albumin 3.7 Globulin 4.4 H Albumin/Globulin Ratio 0.8 L Lipase 121 Procalcitonin 0.16 Urine Color Urine Appearance Urine pH Ur Specific [place] Urine Protein Urine Glucose (UA) Urine Ketones Urine Occult Blood Urine Nitrate Urine Bilirubin Urine Urobilinogen Ur Leukocyte Esterase Urine RBC Urine WBC Ur Squamous Epith Cells Urine Bacteria Urine Mucus Ur Culture Indicated? Nasal Screen MRSA (PCR) U Opiates 300ng/mL cut Ur Oxycodone Screen Urine Methadone Screen Ur Barbiturates Screen U Tricyclic Antidepress Ur Phencyclidine Scrn Ur Amphetamines Screen U Methamphetamines Scrn Ur MDMA Scrn (Ecstasy) U Benzodiazepines Scrn Urine Cocaine Screen U Marijuana (THC) Screen Ethyl Alcohol < 10 Chlamy pneumoniae PCR Adenovirus (PCR) B. pertussis DNA (PCR) B.parapertussis DNA PCR Coronavirus OC43 (PCR) Coronavirus HKU1 (PCR) Coronavirus 229E (PCR) SARS-CoV-2 (PCR) Coronavirus NL63 (PCR) Human Metapneumovir PCR Influenza Type A (PCR) Influenza Type B (PCR) M. pneumoniae (PCR) Parainfluenza 1 (PCR) Parainfluenza 2 (PCR) Parainfluenza 3 (PCR) Parainfluenza 4 (PCR) RSV (PCR) Entero/Rhino (PCR) 10/03/21 10/03/21 10/03/21 19:02 19:41 19:47 WBC RBC Hgb Hct MCV MCH MCHC RDW Plt Count Neut % (Auto) Lymph % (Auto) Early % (Auto) Eos % (Auto) Baso % (Auto) Neut # (Auto) Lymph # (Auto) Early # (Auto) Eos # (Auto) Baso # (Auto) Total Counted Seg Neutrophils % Band Neutrophils % Lymphocytes % (Manual) Monocytes % (Manual) Neutrophils # (Manual) RBC Morphology Polychromasia Hypochromasia Anisocytosis D-Dimer ABG pH 7.44 ABG pCO2 33.5 L ABG pO2 84 ABG HCO3 22 ABG Total CO2 23 ABG O2 Saturation 97 ABG Base Excess -2.0 FiO2 60 Sodium Potassium Chloride Carbon Dioxide BUN Creatinine Estimated GFR BUN/Creatinine Ratio Glucose Lactate Calcium Magnesium Total Bilirubin AST ALT Alkaline Phosphatase Troponin I NT-Pro-B Natriuret Pep Total Protein Albumin Globulin Albumin/Globulin Ratio Lipase Procalcitonin Urine Color Yellow Urine Appearance Clear Urine pH 5.5 Ur Specific [place] 1.020 Urine Protein 2+ H Urine Glucose (UA) Negative Urine Ketones Negative Urine Occult Blood Negative Urine Nitrate Negative Urine Bilirubin Negative Urine Urobilinogen 1.0 Ur Leukocyte Esterase Negative Urine RBC 0-1/hpf Urine WBC None seen Ur Squamous Epith Cells None seen Urine Bacteria None seen Urine Mucus 1+ H Ur Culture Indicated? Cult not indicated Nasal Screen MRSA (PCR) U Opiates 300ng/mL cut Ur Oxycodone Screen Urine Methadone Screen Ur Barbiturates Screen U Tricyclic Antidepress Ur Phencyclidine Scrn Ur Amphetamines Screen U Methamphetamines Scrn Ur MDMA Scrn (Ecstasy) U Benzodiazepines Scrn Urine Cocaine Screen U Marijuana (THC) Screen Ethyl Alcohol Chlamy pneumoniae PCR Not detected Adenovirus (PCR) Not detected B. pertussis DNA (PCR) Not detected B.parapertussis DNA PCR Not detected Coronavirus OC43 (PCR) Not detected Coronavirus HKU1 (PCR) Not detected Coronavirus 229E (PCR) Not detected SARS-CoV-2 (PCR) Not detected Coronavirus NL63 (PCR) Not detected Human Metapneumovir PCR Not detected Influenza Type A (PCR) Not detected Influenza Type B (PCR) Not detected M. pneumoniae (PCR) Not detected Parainfluenza 1 (PCR) Not detected Parainfluenza 2 (PCR) Not detected Parainfluenza 3 (PCR) Detected H Parainfluenza 4 (PCR) Not detected RSV (PCR) Not detected Entero/Rhino (PCR) Not detected 10/03/21 10/03/21 10/04/21 21:20 22:45 00:10 WBC RBC Hgb Hct MCV MCH MCHC RDW Plt Count Neut % (Auto) Lymph % (Auto) Early % (Auto) Eos % (Auto) Baso % (Auto) Neut # (Auto) Lymph # (Auto) Early # (Auto) Eos # (Auto) Baso # (Auto) Total Counted Seg Neutrophils % Band Neutrophils % Lymphocytes % (Manual) Monocytes % (Manual) Neutrophils # (Manual) RBC Morphology Polychromasia Hypochromasia Anisocytosis D-Dimer ABG pH 7.43 ABG pCO2 37.9 ABG pO2 55 L ABG HCO3 25 ABG Total CO2 26 ABG O2 Saturation 89 L ABG Base Excess 1.0 FiO2 40 Sodium Potassium Chloride Carbon Dioxide BUN Creatinine Estimated GFR BUN/Creatinine Ratio Glucose Lactate 1.6 Calcium Magnesium Total Bilirubin AST ALT Alkaline Phosphatase Troponin I NT-Pro-B Natriuret Pep Total Protein Albumin Globulin Albumin/Globulin Ratio Lipase Procalcitonin Urine Color Urine Appearance Urine pH Ur Specific [place] Urine Protein Urine Glucose (UA) Urine Ketones Urine Occult Blood Urine Nitrate Urine Bilirubin Urine Urobilinogen Ur Leukocyte Esterase Urine RBC Urine WBC Ur Squamous Epith Cells Urine Bacteria Urine Mucus Ur Culture Indicated? Nasal Screen MRSA (PCR) Negative for mrsa U Opiates 300ng/mL cut Ur Oxycodone Screen Urine Methadone Screen Ur Barbiturates Screen U Tricyclic Antidepress Ur Phencyclidine Scrn Ur Amphetamines Screen U Methamphetamines Scrn Ur MDMA Scrn (Ecstasy) U Benzodiazepines Scrn Urine Cocaine Screen U Marijuana (THC) Screen Ethyl Alcohol Chlamy pneumoniae PCR Adenovirus (PCR) B. pertussis DNA (PCR) B.parapertussis DNA PCR Coronavirus OC43 (PCR) Coronavirus HKU1 (PCR) Coronavirus 229E (PCR) SARS-CoV-2 (PCR) Coronavirus NL63 (PCR) Human Metapneumovir PCR Influenza Type A (PCR) Influenza Type B (PCR) M. pneumoniae (PCR) Parainfluenza 1 (PCR) Parainfluenza 2 (PCR) Parainfluenza 3 (PCR) Parainfluenza 4 (PCR) RSV (PCR) Entero/Rhino (PCR) 10/04/21 10/04/21 10/04/21 00:55 05:00 05:00 WBC 11.1 H RBC 3.84 L Hgb 11.4 L Hct 35.0 L MCV 91.3 MCH 29.7 MCHC 32.5 RDW 14.3 Plt Count 165 Neut % (Auto) Not Reportable Lymph % (Auto) Not Reportable Early % (Auto) Not Reportable Eos % (Auto) Not Reportable Baso % (Auto) Not Reportable Neut # (Auto) Lymph # (Auto) Not Reportable Early # (Auto) Not Reportable Eos # (Auto) Baso # (Auto) Not Reportable Total Counted 100 Seg Neutrophils % 70.0 Band Neutrophils % 1.0 L Lymphocytes % (Manual) 23.0 L Monocytes % (Manual) 6.0 Neutrophils # (Manual) 7881 H RBC Morphology Not Reportable Polychromasia 1+ H Hypochromasia 1+ H Anisocytosis 2+ H D-Dimer ABG pH ABG pCO2 ABG pO2 ABG HCO3 ABG Total CO2 ABG O2 Saturation ABG Base Excess FiO2 Sodium 142 Potassium 3.1 L Chloride 109 H Carbon Dioxide 26 BUN 18 H Creatinine 0.97 Estimated GFR > 60 BUN/Creatinine Ratio 18.6 Glucose 146 H Lactate Calcium 7.9 L Magnesium Total Bilirubin 1.1 AST 56 H ALT 30 Alkaline Phosphatase 128 H Troponin I NT-Pro-B Natriuret Pep 2650 H Total Protein 6.9 Albumin 3.1 L Globulin 3.8 Albumin/Globulin Ratio 0.8 L Lipase Procalcitonin Urine Color Urine Appearance Urine pH Ur Specific [place] Urine Protein Urine Glucose (UA) Urine Ketones Urine Occult Blood Urine Nitrate Urine Bilirubin Urine Urobilinogen Ur Leukocyte Esterase Urine RBC Urine WBC Ur Squamous Epith Cells Urine Bacteria Urine Mucus Ur Culture Indicated? Nasal Screen MRSA (PCR) U Opiates 300ng/mL cut Negative Ur Oxycodone Screen Negative Urine Methadone Screen Negative Ur Barbiturates Screen Negative U Tricyclic Antidepress Positive H Ur Phencyclidine Scrn Negative Ur Amphetamines Screen Negative U Methamphetamines Scrn Negative Ur MDMA Scrn (Ecstasy) Negative U Benzodiazepines Scrn Negative Urine Cocaine Screen Negative U Marijuana (THC) Screen Negative Ethyl Alcohol Chlamy pneumoniae PCR Adenovirus (PCR) B. pertussis DNA (PCR) B.parapertussis DNA PCR Coronavirus OC43 (PCR) Coronavirus HKU1 (PCR) Coronavirus 229E (PCR) SARS-CoV-2 (PCR) Coronavirus NL63 (PCR) Human Metapneumovir PCR Influenza Type A (PCR) Influenza Type B (PCR) M. pneumoniae (PCR) Parainfluenza 1 (PCR) Parainfluenza 2 (PCR) Parainfluenza 3 (PCR) Parainfluenza 4 (PCR) RSV (PCR) Entero/Rhino (PCR) [facility] Medical History (Updated 10/04/21 @ 01:28 by Jem Perez MD) Acid reflux Chronic insomnia Hyperlipidemia Hypertension Hypothyroidism (acquired) Social History household members: spouse Smoking Status: Unknown if ever smoked alcohol intake: current Assessment & Plan Assessment & Plan narrative: ACUTE HYPOXIC RESPIRATORY FAILURE SECONDARY TO PNEUMONIA. ACUTE VIRAL PNEUMONITIS. PARAINFLUENZA 3 ACUTE BACTERIAL PNEUMONIA. POA; ACQUIRED PNEUMONIA SUSPECTED. GRAM-POSITIVE COCCI SUSPECTED POSSIBLE SEPSIS. PRESENT ON ARRIVAL. SOURCE OF INFECTION IS LIKELY THE LUNG. LEUKOCYTOSIS. SECONDARY TO INFECTIOUS PROCESS ELEVATED LIVER ENZYME LACTIC ACIDOSIS. SECONDARY TO SEPSIS AND RESPIRATORY FAILURE COMBINED ANEMIA. THIS COULD BE OF CHRONIC DISEASE. OTHER TYPES CAN BE WORKUP OUTPATIENT IS SUSPECTED ELEVATED BNP. COULD BE RELATED TO CONGESTIVE FAILURE. PATIENT HAS EDEMA PRIOR TIA PER HISTORY. OBESITY WITH A BMI OF 39 HYPERTENSION PER HISTORY HYPOTHYROIDISM. ACQUIRED. PER HISTORY TYPE 2 DM. [id number] PLAN PATIENT ADMITTED TO THE ICU INTUBATED OVERNIGHT DUE TO WORSENING RESPIRATORY STATUS CRITICAL CARE TEAM CONSULTED ASSISTANCE FROM THE CRITICAL CARE TEAM GREATLY APPRECIATED IN DISCHARGING CASE WILL FOLLOW RECOMMENDATIONS THEY ARE RECEIVED HAS CENTRAL LINE CONSIDER AN A LINE WELL FOR CLOSER MONITORING IF INDICATED PRESSORS NEEDED TO MAINTAIN MAP ABOVE 65 AT ALL TIMES DAILY CHEST X-RAY AND ABG WHILE ON THE VENT STARTED ON TUBE FEEDING NURSING TO MAINTAIN STRICT ASPIRATION PRECAUTIONS HAVE ADDED THE BED NEED TO BE ELEVATED AT ALL TIMES ABOVE 35? CONSULT DIETITIAN FOR RECOMMENDATIONS MONITOR BLOOD SUGAR LEVEL CLOSELY STARTED ON INSULIN SLIDING SCALE MAINTAIN PROPER ISOLATION PER HOSPITAL PROTOCOL DUE TO FLU DIAGNOSIS CONTINUE ANTIBIOTICS WELL IN REGARD TO HER PNEUMONIA. MULTIFOCAL PNEUMONIA SUSPECTED ON INITIAL IMAGING PATIENT IS ON ZOSYN OVERNIGHT WILL ADD DOXYCYCLINE SPUTUM CULTURE HAS BEEN COLLECTED AND WILL FOLLOW CLOSELY FOLLOW CLOSELY WITH SERIAL FILMS AGGRESSIVE PULMONARY TOILETING WITH RESPIRATORY THERAPY ASSISTANCE ADDITIONAL MANAGEMENT PER CLINICAL COURSE PROGNOSIS IS GUARDED I SPOKE TO PATIENT'S TODAY IN REGARD TO THE CASE. Time Spent With Patient Critical Care time: I spent a total of [] minutes of critical care time on this patient's care today; this time is exclusive of procedural time. Quality VTE Deep Vein Thrombosis/Pulmonary Embolism Present on Admission: No
[2021-10-04] MEDS: DOXYCYCLINE 100 MG in SODIUM CHLORIDE 0.9% 100 ML IV ×2 (08:53→20:12)
[2021-10-04] MEDS: FAMOTIDINE 20 MG/2 ML VIAL IV ×2 (08:53→20:37)
[2021-10-04] MEDS: ENOXAPARIN 40 MG/0.4 ML SYRINGE SUBCUT (08:53)
[2021-10-04] MEDS: SODIUM CHLORIDE 0.9% FLUSH 10 ML IV ×2 (08:57→20:37)
[2021-10-04] MEDS: FUROSEMIDE 20 MG/2 ML VIAL IV ×2 (09:02→20:37)
--- NOTE | 2021-10-04 09:21 | DI.ECHO.S_ITS ---
[facility]---------[facility] +---------+ : : [address] : [address] : : : : [id number] : : : : Phone: [phone] Echocardiogram Report + :Name: AZAR MACK Study Date: 10/04/2021 Height: 63 in : :[facility] ReadingLocation: Weight: 219 lb : : Gender: Female BSA: 2.0 m2 : :: 1950 Age: 71 yrs BP: 132/68 mmHg: :Reason For Study: Respiratory failure : :Ordering Physician: DENY, : :KAT Performed By: Alcon Turk : :Referring: KAT BARCLAY : + Interpretation Summary The left ventricle is normal in size. There is moderate asymmetric left ventricular hypertrophy. No systolic anterior motion of the mitral valve. No obvious LV outflow tract obstruction. No significant change from the previous study. The ejection fraction is estimated to be 60-65%. The right ventricle is normal in size and function. No significant valvular pathology seen. The IVC is of normal diameter and collapses greater than 50% with a sniff. This suggests a low right atrial pressure of 3 mm Hg. Procedure: A two-dimensional transthoracic echocardiogram with color flow and Doppler was performed. The study quality was technically adequate. Comparison is made with the echocardiogram of 10/09/2020. The patient was in normal sinus rhythm during the exam. Left Ventricle: The left ventricle is normal in size. There is moderate asymmetric left ventricular hypertrophy. There is no echo evidence for significant left ventricular outflow tract obstruction. Left ventricular systolic function is normal. The ejection fraction is estimated to be 60-65%. There are no focal wall motion abnormalities. MV E/A: 0.69 Med Peak E' Javan: 3.8 cm/sec E/E' med: 15.8. Right Ventricle: The right ventricle is normal in size and function. Atria: Both atria are normal in size. Both atria have mildly decreased in size since the prior echo exam. The interatrial septum grossly appears intact with no obvious evidence for an atrial septal defect. Mitral Valve: No systolic anterior motion of the mitral valve. The mitral valve leaflets appear borderline thickened, but open well. There is trace mitral regurgitation. Aortic Valve: The aortic valve is normal in structure and function. There is no aortic valve stenosis. No aortic regurgitation is present. Tricuspid Valve: The tricuspid valve is normal in structure and function. There is trace tricuspid regurgitation. Pulmonary artery pressures cannot be estimated because of the lack of a measurable TR jet velocity. Pulmonic Valve: The pulmonic valve is not well seen, but is grossly normal. There is no pulmonic valvular regurgitation. Great Vessels: The aortic root is normal size. The ascending aorta could not be visualized. The aortic arch could not be visualized. The IVC is of normal diameter and collapses greater than 50% with a sniff. This suggests a low right atrial pressure of 3 mm Hg. Pericardium/ Pleura There is no pericardial effusion. There is no pleural effusion. MMode/2D Measurements & Calculations LVIDd: 4.7 cm LVOT diam: 2.4 cm LVIDs: 3.5 cm Ao root diam: 3.3 cm FS: 25.4 % IVSd: 1.5 cm LVPWd: 1.0 cm LV medina. diameter/BSA (cm/m^2): 2.3 LV sys. diameter/BSA (cm/m^2): 1.7 LA A2 area: 17.5 cm2 RA long axis: 4.9 cm LA A4 area: 19.7 cm2 RA area: 17.2 cm2 LA length (vol): 5.6 cm RA vol: 50.9 ml LA vol: 52.7 ml RA : 25.3 ml/m2 LA vol index: 26.2 ml/m2 TAPSE: 2.4 cm Doppler Measurements & Calculations Ao V2 max: 113.9 cm/sec LVOT Max Javan: 93.6 cm/sec Ao V2 mean: 80.9 cm/sec LV V1 max P.5 mmHg Ao max P.2 mmHg LV V1 VTI: 18.9 cm Ao mean P.8 mmHg SUDHIR(I,D): 3.9 cm2 Ao V2 VTI: 21.3 cm SUDHIR(V,D): 3.6 cm2 sev ratio: 0.89 SUDHIR indexed to BSA (cm^2/m^2): 2.0 MV E max javan: 59.6 cm/sec SV(LVOT): 83.6 ml MV A max javan: 86.1 cm/sec MV E/A: 0.69 Med Peak E' Javan: 3.8 cm/sec E/E' med: 15.8 Lat Peak E' Javan: 6.7 cm/sec E/E' lat: 8.9 E/e' average: 12.3 MV dec time: 0.33 sec Reading Physician:12:19 PM
--- NOTE | 2021-10-04 09:23 | PT-IP ANOTE ---
EMR reviewed. Pt just got intubated this morning and is not medically stable to do PT. checked with nurse and confirmed. will d/c PT eval order and nurse stated that will re-order once pt is more appropriate. informed hospitalist and agreed.
--- NOTE | 2021-10-04 09:29 | DI.RAD.S_ITS ---
PROCEDURE: XR ABDOMEN 1V INDICATIONS: confirm satisfactory placement of OGT TECHNIQUE: One view of the abdomen acquired. COMPARISON: [facility], CR, XR CHEST 1V, 10/04/2021, 2:14. [facility], CT, CT ANGIO CHEST PE PROTOCOL, 10/03/2021, 20:17. FINDINGS: Surgical changes and devices: Endotracheal tube in the midtrachea. Enteric tube coursing into the the stomach with the tip likely at the gastric antrum or proximal duodenum. Left-sided central venous line with the catheter tip at the middle 3rd of the SVC. Right breast clips. Generator device at the right lower quadrant. Bowel: Bowel gas pattern is normal. Soft tissues: No suspicious abdominal calcifications. Visualized solid organ contours appear normal in size. Scattered airspace opacity, left greater than right. Contrast excreted in the renal collecting systems. Bones: No suspicious bony lesions. Prior right-sided rib fractures. Bilateral shoulder DJD. IMPRESSION: Enteric tube coursing into the distal stomach. Dictated by: Anthony Law M.D. on 10/04/2021 at 10:07 Approved by: Anthony Law M.D. on 10/04/2021 at 10:09
--- NOTE | 2021-10-04 10:10 | PM.ICURNDS ---
- :: This patient was seen via real time interactive two-way audiovisual telecommunication. patietn remains on high vent settings. ABG pendng for this AM. will start TF , likely will need vital HP. goal to wean peep down to at least 8. keep rass at -2. may need arterial line dpendin on ABG. dvt ppx and sup ordered. subclavian TLC in place.
[2021-10-04 10:19] LABS: Fractionated Inspired Oxygen 55; HCO3 ABG 27 mmol/L (22-26); Oxygen Saturation ABG 99 % (95-100); PCO2 ABG 42.6 mmHg (35-45); PO2 ABG 139 mmHg (80-100); TCO2 ABG 28 mmol/L (21-31); pH ABG 7.41 (7.35-7.45)
[2021-10-04] MEDS: POTASSIUM CHLORIDE 20 MEQ/15 ML UDC 40 MEQ TUBE (10:25)
--- NOTE | 2021-10-04 10:46 | DIET.CONS ---
Dietary Consultation Note Admission Date: 10/03/2021 21:57 Assessment: 71 y/o F admitted for acute respiratory failure. Intubated and TF started. RD consulted for TF recs. PMHx T2DM, HLD, and HTN. Admitted with fluid overload. Current TF orders with goal rate of 50 ml/hr, however pt receiving almost 500 kcals from propofol. Will rec dec in goal rate. Will re-evaluate if propofol dose changes. Would benefit from switching formulas to Jevity to provide more nutrients while on lower rate d/t propofol and fat content. Modest carb with lower rate of Jevity recommended, which should aid in BG management while meeting needs more adequately. K: 3.1 L glucose: 146 M.9 Phos: none available Non-severe wt loss in EMR of 8% over 7 months. 108kg in 02/2021. Ht: 160.02 cm Wt: 99.337 kg BMI: 38.7 Last BM: 10/03/21 (10/03/21 22:33) MNA: 13 Barrie Score: 16 Diet: 10/04/21 Lunch Tube Feeding Diet Diet Modifications: TF Supplement type: Glucerna 1.2 huyen TF mode of delivery: Continuous Starting flow rate mL/hr: 10 Flow rate goal mL/hr: 50 Titration Schedule to reach Goal Rate: every 4 hr Max total daily volume in mL: 2,000 Free fluid: 30 Free Water Frequency: Q1H Labs: RBC 3.84 X10^6/uL (4.0-5.2) L 10/04/21 05:00 Hgb 11.4 g/dL (12.0-16.0) L 10/04/21 05:00 Hct 35.0 % (36-46) L 10/04/21 05:00 Creatinine 0.97 mg/dL (0.52-1.04) 10/04/21 05:00 Lactate 1.6 mmol/L (0.7-2.1) 10/03/21 21:20 NT-Pro-B Natriuret Pep 2650 pg/mL (<125) H 10/04/21 05:00 Nutrition Diagnosis: Inadequate oral intake r/t intubation aeb respiratory failure + vent and therefore inability to obtain energy via PO. Interventions: 1. Recc feeding continuous Jevity 1.2 starting at 10 ml/hr titration up by 10-20mL q 6-10hr as tolerated until reaching goal of 30 ml/hr. 2. Provide 5 protein pkts per day to help meet protein needs. 4. Rec 200-250 ml free water flushes q 4 hr, pending fluid status. Hospitalist to manage fluids. Daily fluid recs 2772-2312 ml. Formula provides 581ml fluids (29-32% of needs), with flushes fluids equal 5772-0127 ml (100% of needs). 5. Current propofol @ 30 mcg/kg/min is providing 473 kcals. Propofol plus formula provides 1557 kcals (87-78% of needs). 7. HOB elevated at least 30 degrees at all time to reduce risk of aspiration. 8. Daily weights please. 9. Monitor refeeding labs, replenish prn. EER: 5705-1641 kcals, 106g protein, 0443-1933 ml fluids 18-20 kcal/kg (per BMI + vent using actual BW of 99kg) 1.5g/kg protein (per BMi + vent using adj BW 71kg) 25-28ml/kg fluids (per risk for fluid overload using adj BW 71 kg) Formula + PRO pkts + propofol provides: 1557kcals, 95g PRO, 122g CHO, and 81g fat Monitoring/Evaluations: TF tolerance, weight, refeeeding labs. RD follow-up in 2-3 days. Electronically Signed by: Itzel Mark 10/04/21 10:46 Clinical Dietitian [address] [address]
[2021-10-04] MEDS: fentaNYL 1,000 MCG in DEXTROSE 5% IN WATER 250 ML 26.821 MCG IV ×2 (11:53→22:58)
[2021-10-04] MEDS: INSULIN LISPRO 100 UNIT/ML 3ML VIAL SUBCUT ×2 (12:05→17:31)
[2021-10-04] MEDS: propofoL 1,000 MG/100 ML VIAL 14.901 MG IV (12:26)
[2021-10-04] MEDS: propofoL 1,000 MG/100 ML VIAL 23.841 MG IV (17:18)
--- NOTE | 2021-10-04 18:26 | PC.NURSE ---
Obtained medication list from [place] and updated med rec accordingly. Please note, Called to Dr. Tovar's office to obtain this information and was informed that pt is not seen by Dr. Tovar ( listed as pt's PCP).
--- NOTE | 2021-10-04 20:23 | P.ICUMDRN_ITS ---
- :: This patient was seen via real time interactive two-way audiovisual telecommunication. Note: Briefly this is a 71 year old female with history of DM, HTN, and hyperlipidemia admitted for acute hypoxemia respiratory failure secondary to parainfluenza pneumonia. Currently intubated and sedated. TTE reviewed -> preserved LV function with E/e'~15 suggestive of hypervolemia. Will continue diuresis to seek net negative fluid balance and zosyn to cover for possible superimposed bacte rial pneumonia. Continue titrating down FiO2 and PEEP to maintain goal SpO2 ~88. Daily SAT and SBT. Discussed with RN.
[2021-10-04] MEDS: propofoL 1,000 MG/100 ML VIAL 11.92 MG IV (22:11)
[2021-10-05] VITALS (45 sets, daily range): BP systolic 127–180; BP diastolic 59–88; PULSE 80–92; RESP 17–42; TEMP 37–37.7; O2SAT 90–100
[2021-10-05] MEDS: CHLORHEXIDINE GLUCONATE 15 ML CUP PO ×5 (00:13→23:48)
[2021-10-05] MEDS: ACETAMINOPHEN 650 MG SUPP PR (02:34)
[2021-10-05] MEDS: PIPERACILLIN/TAZO 3.375 GM in SODIUM CHLORIDE 0.9% 100 ML IV ×3 (03:54→19:35)
[2021-10-05 05:09] LABS: Add Manual Diff / Slide Review NO; Basophils Absolute Auto 100 /uL (0-100); Basophils Percent Auto 0.8 % (0-2); Eosinophils Absolute Auto 200 /uL (0-450); Eosinophils Percent Auto 3.3 % (2-4); Hematocrit 33.9 % (36-46); Hemoglobin 11.5 g/dL (12.0-16.0); Lymphocytes Absolute Auto 1400 /uL (1100-4500); Mean Corpuscular Hemoglobin 30.9 PG (26-34); Mean Corpuscular Volume 90.9 fL (80-100); Monocytes Absolute Auto 600 /uL (0-900); Monocytes Percent Auto 9.1 % (3-14); Neutrophils Absolute Auto 4800 /uL (1500-7000); Neutrophils Percent Auto 66.8 % (50-75); Platelet Count 149 X10^3/uL (150-400); Red Blood Cell Count 3.73 X10^6/uL (4.0-5.2); Red Cell Distribution Width 14.9 % (11.6-14.8); White Blood Cell Count 7.1 X10^3/uL (4.5-11.0)
[2021-10-05 05:18] LABS: Magnesium 1.8 mg/dL (1.6-2.3); Phosphorous 2.8 mg/dL (2.8-4.1)
[2021-10-05 05:19] LABS: Alanine Aminotransferase 27 IU/L (<35); Albumin Globulin Ratio 0.8 (1.0-2.8); Alkaline Phosphatase 121 U/L (38-126); Aspartate Aminotransferase 47 IU/L (14-36); Bilirubin Total 0.9 mg/dL (0.2-1.3); Blood Urea Nitrogen 18 mg/dL (7-17); Calcium 7.7 mg/dL (8.4-10.2); Carbon Dioxide 26 mmol/L (22-32); Chloride 106 mmol/L (98-107); Estimated Glomerular Filt Rate > 60 mL/min (>60); Globulin 3.9 g/dL (1.7-4.1); Glucose 180 mg/dL (80-110); HEMOLYSIS < 15 (0-50); Potassium 3.2 mmol/L (3.4-5.1); Sodium 139 mmol/L (137-145); Total Protein 6.9 g/dL (6.3-8.2)
[2021-10-05] MEDS: INSULIN LISPRO 100 UNIT/ML 3ML VIAL SUBCUT ×2 (05:39→18:01)
[2021-10-05 05:55] LABS: HCO3 ABG 27 mmol/L (22-26); Oxygen Saturation ABG 98 % (95-100); PCO2 ABG 44.1 mmHg (35-45); PO2 ABG 101 mmHg (80-100); TCO2 ABG 28 mmol/L (21-31); pH ABG 7.39 (7.35-7.45)
[2021-10-05 05:56] LABS: Fractionated Inspired Oxygen 50
--- NOTE | 2021-10-05 06:00 | DI.RAD.S_ITS ---
PROCEDURE: XR CHEST 1V INDICATIONS: Intubated TECHNIQUE: One view of the chest was acquired. COMPARISON: [facility], CR, XR CHEST 1V, 10/04/2021, 2:14. FINDINGS: Surgical changes and devices: Endotracheal tube 3.6 cm above the thong. Nasogastric tube stomach. Port-A-Cath tip in the upper SVC. Heart size is enlarged, there is moderate vascular congestion. Obscuration left hemidiaphragm with left-sided pulmonary infiltrate present. Old healed right-sided rib fractures. Right pleural space clear. IMPRESSION: Lines and tubes unchanged Dense left-sided pulmonary infiltrate and left-sided pleural effusion with atelectasis. Old right-sided rib fractures Approved by: Fabian Cuellar M.D. on 10/05/2021 at 11:09
[2021-10-05] MEDS: propofoL 1,000 MG/100 ML VIAL 11.92 MG IV (06:47)
[2021-10-05] MEDS: DOXYCYCLINE 100 MG in SODIUM CHLORIDE 0.9% 100 ML IV ×2 (08:22→20:22)
[2021-10-05] MEDS: FAMOTIDINE 20 MG/2 ML VIAL IV ×2 (08:25→20:25)
[2021-10-05] MEDS: FUROSEMIDE 20 MG/2 ML VIAL IV ×2 (08:25→20:25)
[2021-10-05] MEDS: ENOXAPARIN 40 MG/0.4 ML SYRINGE SUBCUT (08:25)
[2021-10-05] MEDS: SODIUM CHLORIDE 0.9% FLUSH 10 ML IV ×3 (08:26→20:24)
[2021-10-05] MEDS: POTASSIUM CHLORIDE IN WATER 10 MEQ/100 ML PIGGYBACK 100 MEQ IV ×4 (10:27→13:35)
--- NOTE | 2021-10-05 13:02 | PM.PN.1 ---
Subjective Subjective Date Patient Seen: 10/05/21 Interval history: BRIEF HPI THIS IS A 71-YEAR-OLD FEMALE BROUGHT TO THE HOSPITAL WITH SIGNS OF ACUTE TODAYTODAY? RESPIRATORY FAILURE PATIENT INTUBATED ON 10/03 HAS A LEFT SUBCLAVIAN CENTRAL LINE INSERTED ON 10/03 CRITICAL CARE TEAM CONSULTED PATIENT IS POSITIVE FOR PARAINFLUENZA 3 STARTED ON TUBE FEEDING 10/04 TODAY UNABLE TO OBTAIN DUE TO CURRENT CONDITION Exam Vital Signs (past 8 hours): - 10/05/21 05:30 10/05/21 06:00 10/05/21 06:57 Temperature 99.1 F 99.0 F Pulse Rate 81 83 Respiratory Rate 18 19 Blood Pressure 133/68 Pulse Oximetry 93 95 94 10/05/21 07:00 10/05/21 08:00 10/05/21 08:52 Temperature 99.0 F 98.6 F Pulse Rate 83 82 Respiratory Rate 18 18 Blood Pressure 141/69 H 129/66 Pulse Oximetry 94 95 94 10/05/21 09:00 10/05/21 10:00 10/05/21 11:00 Temperature 98.8 F 99.5 F 99.3 F Pulse Rate 90 92 H 89 Respiratory Rate 42 H 21 18 Blood Pressure 127/88 157/72 H 137/63 Pulse Oximetry 93 94 92 Fraction of Inspired Oxygen 35 Oxygen Delivery Method Mechanical Ventilation Oxygen Flow Rate 15 Narrative Exam Narrative: INTUBATED ; OBESE HEAD ATRAUMATIC AND NORMOCEPHALIC NECK :? NO LYMPHADENOPATHY;? NO CAROTID BRUITS; NO? NECK MASS EYE: PERRLA, NORMAL CONJUNCTIVA; NO JAUNDICE CHEST:? REGULAR RATE.? ? NO RUBS.? PMI IS NON DISPLACED.? NO MURMURS; NORMAL S1-S2 PULMONARY:? DECREASED BS OVER THE BASES.? ? BIBASILAR CRACKLES NOTED;? NO PLEURAL RUBS ABDOMEN:? SOFT. NONDISTENDED.? BOWEL SOUNDS ARE PRESENT IN ALL 4 QUADRANTS.? NO MASS. EXTREMITIES: 2+ PITTING NICKOLAS LOWER EDEMA..? NO CYANOSIS OR CLUBBING NOTED. NEURO:? CRANIAL NERVES 2-12 GROSSLY INTACT. NO FOCAL NEUROLOGICAL DEFICIT NOTED. SENSATIONS INTACT MSK:? ADEQUATE PASSIVE RANGE OF MOTION FOR AGE.? NO JOINT EFFUSION.? NO SIGN OF TRAUMA SKIN:? FAIR SKIN TURGOR FOR AGE.? NO OPEN LESIONS :? NORMAL EXTERNAL GENITALIA.? 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 PSYCH :? UNABLE TO ASSESS Objective Labs Result Diagrams: 10/05/21 04:45 10/05/21 04:45 Labs: Laboratory Results - last 24 hr 10/05/21 10/05/21 10/05/21 04:45 04:45 04:45 WBC 7.1 RBC 3.73 L Hgb 11.5 L Hct 33.9 L MCV 90.9 MCH 30.9 MCHC 34.0 RDW 14.9 H Plt Count 149 L Neut % (Auto) 66.8 Lymph % (Auto) 20.0 L [place] % (Auto) 9.1 Eos % (Auto) 3.3 Baso % (Auto) 0.8 Neut # (Auto) 4800 Lymph # (Auto) 1400 [place] # (Auto) 600 Eos # (Auto) 200 Baso # (Auto) 100 ABG pH ABG pCO2 ABG pO2 ABG HCO3 ABG Total CO2 ABG O2 Saturation ABG Base Excess FiO2 Sodium 139 Potassium 3.2 L Chloride 106 Carbon Dioxide 26 BUN 18 H Creatinine 0.82 Estimated GFR > 60 BUN/Creatinine Ratio 22.0 Glucose 180 H Calcium 7.7 L Phosphorus 2.8 Magnesium 1.8 Total Bilirubin 0.9 AST 47 H ALT 27 Alkaline Phosphatase 121 Total Protein 6.9 Albumin 3.0 L Globulin 3.9 Albumin/Globulin Ratio 0.8 L 10/05/21 05:28 WBC RBC Hgb Hct MCV MCH MCHC RDW Plt Count Neut % (Auto) Lymph % (Auto) [place] % (Auto) Eos % (Auto) Baso % (Auto) Neut # (Auto) Lymph # (Auto) [place] # (Auto) Eos # (Auto) Baso # (Auto) ABG pH 7.39 ABG pCO2 44.1 ABG pO2 101 H ABG HCO3 27 H ABG Total CO2 28 ABG O2 Saturation 98 ABG Base Excess 2.0 FiO2 50 Sodium Potassium Chloride Carbon Dioxide BUN Creatinine Estimated GFR BUN/Creatinine Ratio Glucose Calcium Phosphorus Magnesium Total Bilirubin AST ALT Alkaline Phosphatase Total Protein Albumin Globulin Albumin/Globulin Ratio [facility] Medical History (Updated 10/04/21 @ 01:28 by Jem Perez MD) Acid reflux Chronic insomnia Hyperlipidemia Hypertension Hypothyroidism (acquired) Social History household members: spouse Smoking Status: Unknown if ever smoked alcohol intake: current Assessment & Plan Assessment & Plan narrative: ACUTE HYPOXIC RESPIRATORY FAILURE SECONDARY TO PNEUMONIA. ACUTE VIRAL PNEUMONITIS.? PARAINFLUENZA 3 ACUTE BACTERIAL PNEUMONIA. POA;? ACQUIRED PNEUMONIA SUSPECTED.? GRAM-POSITIVE COCCI SUSPECTED POSSIBLE SEPSIS.? PRESENT ON ARRIVAL.? SOURCE OF INFECTION IS LIKELY THE LUNG. LEUKOCYTOSIS.? SECONDARY TO INFECTIOUS PROCESS ELEVATED LIVER ENZYME LACTIC ACIDOSIS.? SECONDARY TO SEPSIS AND RESPIRATORY FAILURE COMBINED ANEMIA.? THIS COULD BE OF CHRONIC DISEASE.? OTHER? TYPES CAN BE WORKUP OUTPATIENT IS SUSPECTED ELEVATED BNP.? COULD BE RELATED TO CONGESTIVE FAILURE.? PATIENT HAS EDEMA PRIOR TIA PER HISTORY. OBESITY WITH A BMI OF 39 HYPERTENSION PER HISTORY HYPOTHYROIDISM.? ACQUIRED.? PER HISTORY TYPE 2 DM.? [id number] PLAN PATIENT REMAIN INTUBATED THIS MORNING HOWEVER SHE APPEARS TO BE IMPROVED SHE IS DOING FAIRLY WELL ON THE VENT ON 35% FIO2 WITH PEEP LOWERED OVERNIGHT MAP REMAINS ABOVE 65 WITHOUT REQUIRING PRESSORS ASSISTANCE FROM THE CRITICAL CARE TEAM GREATLY APPRECIATED SPUTUM GROWING STAPHYLOCOCCUS AUREUS HOWEVER WBC LEVEL IS IMPROVING PATIENT IS ON CEFEPIME AND DOXY WILL CONTINUE CURRENT ANTIBIOTICS FOR NOW CONTINUE TO MONITOR CLOSELY WITH DAILY LAB APPEARS TO TOLERATE FEEDING VERY WELL CONTINUE AGGRESSIVE PULMONARY TOILETING ADDITIONAL MANAGEMENT PER CLINICAL COURSE PLAN FOR WEANING TRIAL TODAY 10/05 AND POSSIBLE EXTUBATION 10/04 PATIENT ADMITTED TO THE ICU INTUBATED OVERNIGHT DUE TO WORSENING RESPIRATORY STATUS CRITICAL CARE TEAM CONSULTED ASSISTANCE FROM THE CRITICAL CARE TEAM GREATLY APPRECIATED IN DISCHARGING CASE WILL FOLLOW RECOMMENDATIONS THEY ARE RECEIVED HAS CENTRAL LINE CONSIDER AN A LINE? WELL FOR CLOSER MONITORING IF INDICATED PRESSORS NEEDED TO MAINTAIN MAP ABOVE 65 AT ALL TIMES DAILY CHEST X-RAY AND ABG WHILE ON THE VENT STARTED ON TUBE FEEDING NURSING TO MAINTAIN STRICT ASPIRATION PRECAUTIONS HAVE ADDED THE BED NEED TO BE ELEVATED AT ALL TIMES ABOVE 35? CONSULT DIETITIAN FOR RECOMMENDATIONS MONITOR BLOOD SUGAR LEVEL CLOSELY STARTED ON INSULIN SLIDING SCALE MAINTAIN PROPER ISOLATION PER HOSPITAL PROTOCOL DUE TO FLU DIAGNOSIS CONTINUE ANTIBIOTICS WELL IN REGARD TO HER PNEUMONIA. MULTIFOCAL PNEUMONIA SUSPECTED ON INITIAL IMAGING PATIENT IS ON ZOSYN OVERNIGHT WILL ADD DOXYCYCLINE SPUTUM CULTURE HAS BEEN COLLECTED AND WILL FOLLOW CLOSELY FOLLOW CLOSELY WITH SERIAL FILMS AGGRESSIVE PULMONARY TOILETING WITH RESPIRATORY THERAPY ASSISTANCE ADDITIONAL MANAGEMENT PER CLINICAL COURSE PROGNOSIS IS GUARDED I SPOKE TO PATIENT'S TODAY IN REGARD TO THE CASE. Time Spent With Patient Critical Care time: I spent a total of [] minutes of critical care time on this patient's care today; this time is exclusive of procedural time. Quality VTE Deep Vein Thrombosis/Pulmonary Embolism Present on Admission: No
--- NOTE | 2021-10-05 13:19 | RT ---
PT FAILED WEANING TRIAL (RR=40). DR. ORANTES NOTIFIED BY RN.
--- NOTE | 2021-10-05 13:30 | P.TELICUPN_ITS ---
Subjective Subjective If camera was activated, add TeleICU A-V statement: patietn seem via [address] av ssytem. Ths am following commmands with imrpoved fio2. SBT attemtpe this afternoon but could no tolerate PSV for morre than 10 minutes. Xr with some ggo still, thouhg it seems as exchange is imrpoved Current Medications Current Medications Medications: Home Medications amlodipine 5 mg tablet 5 mg PO BID 10/04/21 [History Confirmed 10/04/21] aspirin 81 mg tablet 81 mg PO DAILY 10/04/21 [History Confirmed 10/04/21] atorvastatin 20 mg tablet 20 mg PO DAILY 10/04/21 [History Confirmed 10/04/21] calcium citrate 200 mg (950 mg) tablet 200 mg PO DAILY 10/04/21 [History Confirmed 10/04/21] cyclobenzaprine 10 mg tablet 10 mg PO TID PRN 10/04/21 [History Confirmed 10/04/21] fluoxetine 40 mg capsule (Prozac) 40 mg PO BID 10/04/21 [History Confirmed 10/04/21] fluticasone 250 mcg-salmeterol 50 mcg/dose blistr powdr for inhalation 1 inh INHALATION BID 10/04/21 [History Confirmed 10/04/21] gabapentin 300 mg capsule 300 mg PO BEDTIME 10/04/21 [History Confirmed 10/04/21] levothyroxine 150 mcg tablet 75 mcg PO DAILY 10/04/21 [History Confirmed 10/04/21] loratadine 10 mg tablet 10 mg PO DAILY 10/04/21 [History Confirmed 10/04/21] meloxicam 15 mg tablet 15 mg PO DAILY 10/04/21 [History Confirmed 10/04/21] metformin 500 mg tablet 500 mg PO BID 10/04/21 [History Confirmed 10/04/21] metoprolol tartrate 50 mg tablet 50 mg PO BID 10/04/21 [History Confirmed 10/04/21] omega-3 fatty acids 1,200 mg PO DAILY 10/04/21 [History Confirmed 10/04/21] omeprazole 20 mg capsule,delayed release 20 mg PO BID 10/04/21 [History Confirmed 10/04/21] trazodone 150 mg tablet 75 mg PO BEDTIME PRN 10/04/21 [History Confirmed 10/04/21] zolpidem 5 mg tablet 5 mg PO BEDTIME PRN 10/04/21 [History Confirmed 10/04/21] Visit Medications (administered) Generic Name Dose Route Start Last Admin Trade Name Marlys PRN Reason Stop Dose Admin Acetaminophen 650 mg 10/04/21 00:33 10/05/21 02:34 Acetaminophen 650 Mg Supp ID 650 mg Q4HR PRN Administration Fever/Mild Pain (1-3) Chlorhexidine Gluconate 15 ml 10/04/21 06:00 10/05/21 12:17 Chlorhexidine Gluconate 15 Ml Cup PO 15 ml Q6HR RYLEE Administration Enoxaparin Sodium 40 mg 10/04/21 09:00 10/05/21 08:25 Enoxaparin 40 Mg/0.4 Ml Syringe SUBCUT 40 mg DAILY RYLEE Administration Famotidine 20 mg 10/04/21 09:00 10/05/21 08:25 Famotidine 20 Mg/2 Ml Vial IV 20 mg BID RYLEE Administration Furosemide 20 mg 10/04/21 21:00 10/05/21 08:25 Furosemide 20 Mg/2 Ml Vial IV 20 mg BID RYLEE Administration Heparin Sodium (Porcine) 50 unit 10/04/21 09:00 10/05/21 08:26 Heparin Flush (Cl/Picc/Mid-Line) 50 Unit/5 Ml Syringe IV 50 unit BID RYLEE Administration Piperacillin Sod/Tazobactam 100 mls @ 25 mls/hr 10/04/21 04:00 10/05/21 12:17 Sod 3.375 gm/ Sodium Chloride IV 25 mls/hr Q8H RYLEE Administration Fentanyl 1,000 mcg/ Dextrose 270 mls @ 18.775 mls/hr 10/04/21 01:00 10/05/21 08:27 IV 0 mcg/kg/hr TITRATE RYLEE 0 mls/hr Titration Protocol 0.7 MCG/KG/HR Propofol 1,000 mg in 100 mls @ 2.98 mls/hr 10/04/21 01:00 10/05/21 13:16 Propofol IV 35 mcg/kg/min TITRATE RYLEE 20.861 mls/hr Titration Protocol 5 MCG/KG/MIN Doxycycline Hyclate 100 mg/ 100 mls @ 100 mls/hr 10/04/21 08:45 10/05/21 10:00 Sodium Chloride IV Infused Q12H RYLEE Infusion POTASSIUM CHLORIDE IN WATER 10 meq in 100 mls @ 100 mls/hr 10/05/21 11:00 10/05/21 12:34 Potassium Cl 10 Meq/100 Ml Tory IV 10/05/21 14:59 100 mls/hr Q1H RYLEE Administration Insulin Human Lispro 0 unit 10/04/21 12:00 10/05/21 12:17 Insulin Lispro 100 Unit/Ml 3ml Vial SUBCUT Not Given Q6H RYLEE Protocol Sodium Chloride 10 ml 10/04/21 09:00 10/05/21 08:26 Sodium Chloride 0.9% Flush IV 10 ml BID RYLEE Administration Objective Ventilator Parameters: Ventilator Settings FiO2 30 RT Vent Frequency 18 Ventilator Tidal Volume 420 Exhaled Vt/kg IBW 8 Positive End Expiratory 5 Pressure Inspiratory Phase Time 0.8 I:E Ratio 1:3.2 Patient Position HOB >= 30 degrees Labs Result Diagrams: 10/05/21 04:45 10/05/21 04:45 Labs: Laboratory Results - last 24 hr 10/05/21 10/05/21 10/05/21 04:45 04:45 04:45 WBC 7.1 RBC 3.73 L Hgb 11.5 L Hct 33.9 L MCV 90.9 MCH 30.9 MCHC 34.0 RDW 14.9 H Plt Count 149 L Neut % (Auto) 66.8 Lymph % (Auto) 20.0 L [place] % (Auto) 9.1 Eos % (Auto) 3.3 Baso % (Auto) 0.8 Neut # (Auto) 4800 Lymph # (Auto) 1400 [place] # (Auto) 600 Eos # (Auto) 200 Baso # (Auto) 100 ABG pH ABG pCO2 ABG pO2 ABG HCO3 ABG Total CO2 ABG O2 Saturation ABG Base Excess FiO2 Sodium 139 Potassium 3.2 L Chloride 106 Carbon Dioxide 26 BUN 18 H Creatinine 0.82 Estimated GFR > 60 BUN/Creatinine Ratio 22.0 Glucose 180 H Calcium 7.7 L Phosphorus 2.8 Magnesium 1.8 Total Bilirubin 0.9 AST 47 H ALT 27 Alkaline Phosphatase 121 Total Protein 6.9 Albumin 3.0 L Globulin 3.9 Albumin/Globulin Ratio 0.8 L 10/05/21 05:28 WBC RBC Hgb Hct MCV MCH MCHC RDW Plt Count Neut % (Auto) Lymph % (Auto) [place] % (Auto) Eos % (Auto) Baso % (Auto) Neut # (Auto) Lymph # (Auto) [place] # (Auto) Eos # (Auto) Baso # (Auto) ABG pH 7.39 ABG pCO2 44.1 ABG pO2 101 H ABG HCO3 27 H ABG Total CO2 28 ABG O2 Saturation 98 ABG Base Excess 2.0 FiO2 50 Sodium Potassium Chloride Carbon Dioxide BUN Creatinine Estimated GFR BUN/Creatinine Ratio Glucose Calcium Phosphorus Magnesium Total Bilirubin AST ALT Alkaline Phosphatase Total Protein Albumin Globulin Albumin/Globulin Ratio Exam Vital Signs (past 8 hours): - 10/05/21 06:00 10/05/21 06:57 10/05/21 07:00 Temperature 99.1 F 99.0 F 99.0 F Pulse Rate 81 83 83 Respiratory Rate 18 19 18 Blood Pressure 133/68 141/69 H Pulse Oximetry 95 94 94 10/05/21 08:00 10/05/21 08:52 10/05/21 09:00 Temperature 98.6 F 98.8 F Pulse Rate 82 90 Respiratory Rate 18 42 H Blood Pressure 129/66 127/88 Pulse Oximetry 95 94 93 10/05/21 10:00 10/05/21 11:00 10/05/21 13:03 Temperature 99.5 F 99.3 F Pulse Rate 92 H 89 Respiratory Rate 21 18 Blood Pressure 157/72 H 137/63 Pulse Oximetry 94 92 90 L Fraction of Inspired Oxygen 35 Oxygen Delivery Method Mechanical Ventilation Oxygen Flow Rate 15 Narrative Exam Narrative: surrogate for exam is primary team Quality TeleICU VTE Deep Vein Thrombosis/Pulmonary Embolism Present on Admission: No Assessment & Plan Assessment and plan (1) Respiratory failure: Qualifiers: Chronicity: acute Respiratory failure complication: hypoxia Qualified Code(s): J96.01 - Acute respiratory failure with hypoxia Status: Acute Plan: continue MV on propfoo, intructed staff to hold off fentnayl and use propofol to augment sbt in am trend ABG (2) Type 2 diabetes mellitus: Status: Acute Plan: trend FS insulincoverage q6 hrs (3) Elevated brain natriuretic peptide (BNP) level: Status: Acute (4) Pulmonary hypertension: Status: Acute Plan: goal negative balance (5) Parainfluenza virus pneumonia: Status: Acute Time Spent With Patient Critical Care time: I spent a total of [] minutes of critical care time on this patient's care today; this time is exclusive of procedural time.
[2021-10-05] MEDS: propofoL 1,000 MG/100 ML VIAL 23.841 MG IV (13:35)
--- NOTE | 2021-10-05 15:48 | CM.DANOTE ---
DCP: Case received, EMR reviewed. Have not been able to meet with patient secondary to her being intubated, and attempted to reach out to spouse, left him a message. Completed DCP assessment based upon information currently available. Patient is a 71 year old female who admitted on 10/03 in the evening, to the care of the hospitalist team. PCP: Dr. Tovar. Payer: confirmed: [facility]. Patient came to the hospital via ambulance secondary to having a fall at home. 911 was called, medics arrived on the scene to assist patient with getting up. She was found to be in significant respiratory distress, and decreased oxygen sats. Patient was started on Duoneb, and sats were increasing to 89%. She originally was sating in the 70s. According to notes, patient has no history of COPD. Patient was diagnosed with pulmonary edema with viral pneumonia, evidenced on chest x-ray. At this time, patient is currently intubated secondary to becoming more dyspneic, and had become agitated. Checked on patient in her room, she is currently intubated, spouse not in room. Did leave a message for spouse to call on his cell phone, for home number voice mail is full. It is noted from admission, that spouse had just been recovering from surgery when patient had change in condition and fell. It is not clear at this time if patient uses any DME supplies at this time. P: DCP to continue to follow closely for any needs. At this time, patient is not medically stable for discharge. Nicole Mccann RN/Security Flex Officer Discharge Planning/Care Management Discharge Assessment Start: 10/05/21 15:43 Freq: Status: Active Protocol: Document 10/05/21 15:43 (Rec: 10/05/21 15:47 [id number]) Discharge Planning Assessment Assigned Leadership Development Instructor NIYAH Matos Advance Directives? Yes Advance Directives on File No History Provided By Patient,Medical Record Prior Living Arrangements House Household Members spouse Type of transporation used prior to Drives own vehicle admit Independent with ADL's Yes Is patient alert and oriented? Yes Caregiver for Another No Comment Unknown at this time, patient is currently intubated, and have message out to spouse. Comment Unknown at this time, secondary to patient being intubated. Discharge Plan Home Transportation Arrangement Family when stable, or if patient needs skilled Referrals Initiated Other Additional Comment Case is still early in the process, as patient is currently intubated. Review Status In Process Next Review Type Continued Stay Review
[2021-10-05] MEDS: propofoL 1,000 MG/100 ML VIAL 20.861 MG IV ×2 (17:54→21:27)
[2021-10-05] MEDS: fentaNYL 1,000 MCG in DEXTROSE 5% IN WATER 250 ML 8.046 MCG IV (17:55)
--- NOTE | 2021-10-05 18:19 | PC.NURSE ---
Day Shift Note On mechanical vent FIO2 35%, PEEP 5, TV 420, and RR 18 at start of shift. Suctioning white/yellow sputum multiple times throughout shift. Propofol and fentanyl gtts off for sedation vacation x2 this shift with subsequent CPAP breathing trials. First breathing trial at 0854 for 30 min, pt tolerated well with RR in the mid-upper 20s and SpO2 93-94%, able to follow directions. Next breathing trial done at [address] Mistry and trial lasted about 10 minutes before pt failed, RR up the 40s, unable to redirect or console. Results given to Dr. Mistry over the phone and instructions received to perform another breathing trial tomorrow morning (10/06) and to minimize fentanyl use. Attempted pt on propofol gtt alone but pt became increasingly agitated, choking/gagging at tube and overbreathing the ventilator (RR in the upper 30s). Fentanyl gtt restarted and is currently at 0.3 mcg/kg/hr and propofol currently at 35 mcg/kg/min. Tolerating tube feeds via OG tube at goal rate. Bilateral soft wrist restraints in place due to pt attempting to reach for ET tube. Pineda catheter in place draining clear yellow urine. Turning every 2 hours to offload pressure to buttocks. Buttocks erythemic but blanchable, several small open areas/lesions, noted to be present on admission assessment. Bed alarm on.
--- NOTE | 2021-10-05 20:27 | PM.ICURNDS ---
- :: This patient was seen via real time interactive two-way audiovisual telecommunication. Note: Briefly this is a 71 year old female admitted for acute hypoxemia respiratory failure 2/ to zahida GOMEZ. Intubated and sedated. Failed SBT today due to tachypnea. On propofol and restarted back on fentanyl due to agitation. Resp cx growing staph aureus. Switch doxycyline to linezolid. Cont daily SAT and SBT. D/w RN.
[2021-10-05] MEDS: LINEZOLID 600 MG/300 ML IV.SOLN IV (21:27)
[2021-10-06] VITALS (46 sets, daily range): BP systolic 120–165; BP diastolic 59–78; PULSE 78–90; RESP 17–38; TEMP 36.6–37.7; O2SAT 91–99
[2021-10-06] MEDS: ACETAMINOPHEN 650 MG SUPP PR (01:19)
[2021-10-06] MEDS: propofoL 1,000 MG/100 ML VIAL 20.861 MG IV ×2 (02:35→08:05)
[2021-10-06] MEDS: PIPERACILLIN/TAZO 3.375 GM in SODIUM CHLORIDE 0.9% 100 ML IV (03:42)
[2021-10-06 05:15] LABS: Add Manual Diff / Slide Review NO; Basophils Absolute Auto 0 /uL (0-100); Basophils Percent Auto 0.6 % (0-2); Eosinophils Absolute Auto 200 /uL (0-450); Eosinophils Percent Auto 2.8 % (2-4); Hematocrit 32.1 % (36-46); Hemoglobin 10.9 g/dL (12.0-16.0); Lymphocytes Absolute Auto 1200 /uL (1100-4500); Lymphocytes Percent Auto 17.2 % (25-40); Mean Corpuscular HGB Conc 33.8 % (30-36); Mean Corpuscular Hemoglobin 30.5 PG (26-34); Mean Corpuscular Volume 90.3 fL (80-100); Monocytes Absolute Auto 600 /uL (0-900); Monocytes Percent Auto 8.1 % (3-14); Neutrophils Absolute Auto 5100 /uL (1500-7000); Neutrophils Percent Auto 71.3 % (50-75); Platelet Count 139 X10^3/uL (150-400); Red Blood Cell Count 3.56 X10^6/uL (4.0-5.2); Red Cell Distribution Width 14.8 % (11.6-14.8); White Blood Cell Count 7.2 X10^3/uL (4.5-11.0)
[2021-10-06 05:26] LABS: Alanine Aminotransferase 25 IU/L (<35); Albumin 2.9 g/dL (3.5-5.0); Albumin Globulin Ratio 0.8 (1.0-2.8); Alkaline Phosphatase 113 U/L (38-126); Aspartate Aminotransferase 49 IU/L (14-36); BUN Creatinine Ratio 20.3 (6-22); Bilirubin Total 0.9 mg/dL (0.2-1.3); Blood Urea Nitrogen 14 mg/dL (7-17); Calcium 7.6 mg/dL (8.4-10.2); Carbon Dioxide 26 mmol/L (22-32); Chloride 102 mmol/L (98-107); Estimated Glomerular Filt Rate > 60 mL/min (>60); Globulin 3.8 g/dL (1.7-4.1); Glucose 140 mg/dL (80-110); HEMOLYSIS < 15 (0-50); Potassium 3.3 mmol/L (3.4-5.1); Sodium 135 mmol/L (137-145); Total Protein 6.7 g/dL (6.3-8.2)
[2021-10-06 05:35] LABS: Fractionated Inspired Oxygen 30; HCO3 ABG 26 mmol/L (22-26); Oxygen Saturation ABG 93 % (95-100); PCO2 ABG 39.3 mmHg (35-45); PO2 ABG 64 mmHg (80-100); TCO2 ABG 27 mmol/L (21-31); pH ABG 7.43 (7.35-7.45)
[2021-10-06 05:43] LABS: Magnesium 1.6 mg/dL (1.6-2.3); Phosphorous 2.6 mg/dL (2.8-4.1)
[2021-10-06] MEDS: CHLORHEXIDINE GLUCONATE 15 ML CUP PO ×4 (05:54→23:13)
--- NOTE | 2021-10-06 06:00 | DI.RAD.S_ITS ---
PROCEDURE: XR CHEST 1V INDICATIONS: Intubated TECHNIQUE: One view of the chest was acquired. COMPARISON: [facility], CR, XR CHEST 1V, 10/05/2021, 11:38. FINDINGS: Surgical changes and devices: Endotracheal and nasogastric tubes remain unchanged. There is a left Port-A-Cath tip in the upper SVC. Right breast surgical clips. Heart size enlarged. Mild to moderate vascular congestion and patchy bilateral pulmonary infiltrates present. Multiple old healed rib fractures noted with bilateral glenohumeral degenerative change. Generalized decreased osseous mineralization present. IMPRESSION: Improving patchy bilateral pulmonary infiltrates Cardiomegaly and stable liuo-je-hchsamie vascular congestion Lines and loop tubes unchanged Approved by: Fabian Cuellar M.D. on 10/06/2021 at 6:43
[2021-10-06] MEDS: INSULIN LISPRO 100 UNIT/ML 3ML VIAL SUBCUT ×2 (06:12→13:02)
[2021-10-06] MEDS: FUROSEMIDE 20 MG/2 ML VIAL IV (08:03)
[2021-10-06] MEDS: ENOXAPARIN 40 MG/0.4 ML SYRINGE SUBCUT (08:04)
[2021-10-06] MEDS: FAMOTIDINE 20 MG/2 ML VIAL IV ×2 (08:04→20:53)
[2021-10-06] MEDS: SODIUM CHLORIDE 0.9% FLUSH 10 ML IV ×2 (08:05→20:53)
[2021-10-06] MEDS: LINEZOLID 600 MG/300 ML IV.SOLN IV (08:05)
--- NOTE | 2021-10-06 09:57 | P.TELICUPN_ITS ---
Subjective Subjective If camera was activated, add TeleICU A-V statement: bossman seen via [address] AV system. Remains intuabted and on PSV this AM. has some increased secretions, swithced IP to 8 and keep peep at 5. Postive sputum cx for staph, ( MSSA) Current Medications Current Medications Medications: Home Medications amlodipine 5 mg tablet 5 mg PO BID 10/04/21 [History Confirmed 10/04/21] aspirin 81 mg tablet 81 mg PO DAILY 10/04/21 [History Confirmed 10/04/21] atorvastatin 20 mg tablet 20 mg PO DAILY 10/04/21 [History Confirmed 10/04/21] calcium citrate 200 mg (950 mg) tablet 200 mg PO DAILY 10/04/21 [History Confirmed 10/04/21] cyclobenzaprine 10 mg tablet 10 mg PO TID PRN 10/04/21 [History Confirmed 10/04/21] fluoxetine 40 mg capsule (Prozac) 40 mg PO BID 10/04/21 [History Confirmed 10/04/21] fluticasone 250 mcg-salmeterol 50 mcg/dose blistr powdr for inhalation 1 inh INHALATION BID 10/04/21 [History Confirmed 10/04/21] gabapentin 300 mg capsule 300 mg PO BEDTIME 10/04/21 [History Confirmed 10/04/21] levothyroxine 150 mcg tablet 75 mcg PO DAILY 10/04/21 [History Confirmed ] loratadine 10 mg tablet 10 mg PO DAILY 10/04/21 [History Confirmed 10/04/21] meloxicam 15 mg tablet 15 mg PO DAILY 10/04/21 [History Confirmed 10/04/21] metformin 500 mg tablet 500 mg PO BID 10/04/21 [History Confirmed 10/04/21] metoprolol tartrate 50 mg tablet 50 mg PO BID 10/04/21 [History Confirmed 10/04/21] omega-3 fatty acids 1,200 mg PO DAILY 10/04/21 [History Confirmed 10/04/21] omeprazole 20 mg capsule,delayed release 20 mg PO BID 10/04/21 [History Confirmed 10/04/21] trazodone 150 mg tablet 75 mg PO BEDTIME PRN 10/04/21 [History Confirmed 10/04/21] zolpidem 5 mg tablet 5 mg PO BEDTIME PRN 10/04/21 [History Confirmed 10/04/21] Visit Medications (administered) Generic Name Dose Route Start Last Admin Trade Name Freq PRN Reason Stop Dose Admin Acetaminophen 650 mg 10/04/21 00:33 10/06/21 01:19 Acetaminophen 650 Mg Supp HI 650 mg Q4HR PRN Administration Fever/Mild Pain (1-3) Chlorhexidine Gluconate 15 ml 10/04/21 06:00 10/06/21 05:54 Chlorhexidine Gluconate 15 Ml Cup PO 15 ml Q6HR RYLEE Administration Enoxaparin Sodium 40 mg 10/04/21 09:00 10/06/21 08:04 Enoxaparin 40 Mg/0.4 Ml Syringe SUBCUT 40 mg DAILY RYLEE Administration Famotidine 20 mg 10/04/21 09:00 10/06/21 08:04 Famotidine 20 Mg/2 Ml Vial IV 20 mg BID YRLEE Administration Furosemide 20 mg 10/04/21 21:00 10/06/21 08:03 Furosemide 20 Mg/2 Ml Vial IV 20 mg BID RYLEE Administration Heparin Sodium (Porcine) 50 unit 10/04/21 09:00 10/06/21 08:05 Heparin Flush (Cl/Picc/Mid-Line) 50 Unit/5 Ml Syringe IV 50 unit BID RYLEE Administration Piperacillin Sod/Tazobactam 100 mls @ 25 mls/hr 10/04/21 04:00 10/06/21 07:44 Sod 3.375 gm/ Sodium Chloride IV Infused Q8H RYLEE Infusion Fentanyl 1,000 mcg/ Dextrose 270 mls @ 18.775 mls/hr 10/04/21 01:00 10/06/21 08:30 IV 0 mcg/kg/hr TITRATE RYLEE 0 mls/hr Titration Protocol 0.7 MCG/KG/HR Propofol 1,000 mg in 100 mls @ 2.98 mls/hr 10/04/21 01:00 10/06/21 08:30 Propofol IV 0 mcg/kg/min TITRATE RYLEE 0 mls/hr Titration Protocol 5 MCG/KG/MIN Linezolid 600 mg in 300 mls @ 600 mls/hr 10/05/21 21:00 10/06/21 08:05 Zyvox IV 600 mls/hr Q12H RYLEE Administration Insulin Human Lispro 0 unit 10/04/21 12:00 10/06/21 06:12 Insulin Lispro 100 Unit/Ml 3ml Vial SUBCUT 1 unit Q6H RYLEE Administration Protocol Sodium Chloride 10 ml 10/04/21 08:46 10/05/21 20:24 Sodium Chloride 0.9% Flush IV 10 ml PRN PRN Administration Flush Sodium Chloride 10 ml 10/04/21 09:00 10/06/21 08:05 Sodium Chloride 0.9% Flush IV 10 ml BID RYLEE Administration Objective Ventilator Parameters: Ventilator Settings FiO2 30 RT Vent Frequency 16 Ventilator Tidal Volume 420 Exhaled Vt/kg IBW 7 Positive End Expiratory 5 Pressure Inspiratory Phase Time 0.8 I:E Ratio 1:3 Patient Position HOB >= 30 degrees Labs Result Diagrams: 10/06/21 05:00 10/06/21 05:00 Labs: Laboratory Results - last 24 hr 10/06/21 10/06/21 10/06/21 05:00 05:00 05:00 WBC 7.2 RBC 3.56 L Hgb 10.9 L Hct 32.1 L MCV 90.3 MCH 30.5 MCHC 33.8 RDW 14.8 Plt Count 139 L Neut % (Auto) 71.3 Lymph % (Auto) 17.2 L [place] % (Auto) 8.1 Eos % (Auto) 2.8 Baso % (Auto) 0.6 Neut # (Auto) 5100 Lymph # (Auto) 1200 [place] # (Auto) 600 Eos # (Auto) 200 Baso # (Auto) 0 ABG pH ABG pCO2 ABG pO2 ABG HCO3 ABG Total CO2 ABG O2 Saturation ABG Base Excess FiO2 Sodium 135 L Potassium 3.3 L Chloride 102 Carbon Dioxide 26 BUN 14 Creatinine 0.69 Estimated GFR > 60 BUN/Creatinine Ratio 20.3 Glucose 140 H Calcium 7.6 L Phosphorus 2.6 L Magnesium 1.6 Total Bilirubin 0.9 AST 49 H ALT 25 Alkaline Phosphatase 113 Total Protein 6.7 Albumin 2.9 L Globulin 3.8 Albumin/Globulin Ratio 0.8 L 10/06/21 05:14 WBC RBC Hgb Hct MCV MCH MCHC RDW Plt Count Neut % (Auto) Lymph % (Auto) [place] % (Auto) Eos % (Auto) Baso % (Auto) Neut # (Auto) Lymph # (Auto) [place] # (Auto) Eos # (Auto) Baso # (Auto) ABG pH 7.43 ABG pCO2 39.3 ABG pO2 64 L ABG HCO3 26 ABG Total CO2 27 ABG O2 Saturation 93 L ABG Base Excess 2.0 FiO2 30 Sodium Potassium Chloride Carbon Dioxide BUN Creatinine Estimated GFR BUN/Creatinine Ratio Glucose Calcium Phosphorus Magnesium Total Bilirubin AST ALT Alkaline Phosphatase Total Protein Albumin Globulin Albumin/Globulin Ratio Exam Vital Signs (past 8 hours): - 10/06/21 02:00 10/06/21 02:09 10/06/21 02:59 Temperature 99.7 F H 99.9 F H 99.9 F H Pulse Rate 81 81 Respiratory Rate 30 H 19 Blood Pressure 138/64 Pulse Oximetry 93 96 10/06/21 03:00 10/06/21 04:00 10/06/21 05:00 Temperature 99.9 F H 99.3 F 98.6 F Pulse Rate 81 83 80 Respiratory Rate 17 22 18 Blood Pressure 132/61 137/65 135/61 Pulse Oximetry 96 95 99 10/06/21 05:15 10/06/21 06:00 10/06/21 06:07 Temperature 98.4 F 97.9 F 97.9 F Pulse Rate 79 78 79 Respiratory Rate 19 22 19 Blood Pressure 145/65 H Pulse Oximetry 99 97 99 10/06/21 07:00 10/06/21 08:00 Temperature 97.9 F 98.2 F Pulse Rate 79 80 Respiratory Rate 18 22 Blood Pressure 133/62 135/63 Pulse Oximetry 98 95 Fraction of Inspired Oxygen 30 Oxygen Delivery Method Mechanical Ventilation Oxygen Flow Rate 15 Narrative Exam Narrative: surrogate for exam is primary team Quality TeleICU VTE Deep Vein Thrombosis/Pulmonary Embolism Present on Admission: No Assessment & Plan Assessment and plan (1) Parainfluenza virus pneumonia: Status: Acute Plan: continue MV imrpoving gas exchange (2) Respiratory failure: Qualifiers: Chronicity: acute Respiratory failure complication: hypoxia Qualified Code(s): J96.01 - Acute respiratory failure with hypoxia Status: Acute Plan: continue PSV trials- willkeep on PSV through out the day, if she does well will plan for extubation to bipap, preferable high flow trend abg increae ipap to 8 hold sedation for now if ACVC neeeded, and overnight, can resume propofol (3) Volume overload: Qualifiers: Hypervolemia type: other Qualified Code(s): E87.79 - Other fluid overload Status: Acute Plan: goal negative balance (4) Type 2 diabetes mellitus: Status: Acute Plan: FS q 6 hrs insulin q 6 hrs with TF basal insulinm (5) Superinfection: Status: Acute (6) Staphylococcal pneumonia: Status: Acute Plan: patient with acute stpah superinfeciton folllwing parainflujenza de-escalated abx to nafcillin Time Spent With Patient Critical Care time: I spent a total of [] minutes of critical care time on this patient's care today; this time is exclusive of procedural time.
[2021-10-06] MEDS: POTASSIUM CHLORIDE IN WATER 10 MEQ/100 ML PIGGYBACK 100 MEQ IV ×4 (10:45→14:09)
--- NOTE | 2021-10-06 12:49 | CM.DPC ---
Addendum entered by Orly Marti R.N. 10/06/21 14:03: Per RN, spoke to spouse and pt uses walker and cane. Pt has hand rails in the house and some memory issues at baseline but fairly independent with ADL's. Pt also has a motorized scooter for long distances. RN updated spouse on pt status. AJ Original Note: DCP: Case reviewed. Pt is a 71 y.o. F who was admitted to the ICU for SOB and falling at home. Pt is currently intubated and on breathing trials. Pt chest X-ray has been increasingly getting worse. Per MD, they will continue with PSV trials throughout the day and if patient tolerates, the plan will be to extubate. During rounds this morning, there was a discussion about the possibility of transferring the pt to another facility for further management of care. P: DCP to continue to follow. Orly Marti RN/DCP
[2021-10-06] MEDS: NAFCILLIN IV ×4 (13:02→23:17)
[2021-10-06] MEDS: SODIUM CHLORIDE 0.9% IV ×4 (13:02→23:17)
--- NOTE | 2021-10-06 13:07 | P.PN_ITS ---
Subjective Subjective Date Patient Seen: 10/06/21 Interval history: BRIEF HPI THIS IS A 71-YEAR-OLD FEMALE BROUGHT TO THE HOSPITAL WITH SIGNS OF ACUTE TODAYTODAY? RESPIRATORY FAILURE PATIENT INTUBATED ON 10/03 HAS A LEFT SUBCLAVIAN CENTRAL LINE INSERTED ON 10/03 CRITICAL CARE TEAM CONSULTED PATIENT IS POSITIVE FOR PARAINFLUENZA 3 STARTED ON TUBE FEEDING 10/04 TODAY UNABLE TO OBTAIN DUE TO CURRENT CONDITION Exam Vital Signs (past 8 hours): - 10/06/21 05:15 10/06/21 06:00 10/06/21 06:07 Temperature 98.4 F 97.9 F 97.9 F Pulse Rate 79 78 79 Respiratory Rate Blood Pressure 145/65 H Pulse Oximetry 99 97 99 10/06/21 07:00 10/06/21 08:00 10/06/21 09:00 Temperature 97.9 F 98.2 F 98.4 F Pulse Rate 79 80 80 Respiratory Rate Blood Pressure 133/62 135/63 137/65 Pulse Oximetry 98 95 93 10/06/21 09:28 10/06/21 10:00 10/06/21 11:00 Temperature 99.1 F 99.1 F Pulse Rate 90 87 Respiratory Rate 26 H 28 H Blood Pressure 156/72 H 158/70 H Pulse Oximetry 94 98 92 10/06/21 12:00 Temperature 99.3 F Pulse Rate 86 Respiratory Rate 29 H Blood Pressure 149/66 H Pulse Oximetry 92 Fraction of Inspired Oxygen 30 Oxygen Delivery Method Mechanical Ventilation Oxygen Flow Rate 15 Narrative Exam Narrative: INTUBATED ; OBESE HEAD ATRAUMATIC AND NORMOCEPHALIC NECK :? NO LYMPHADENOPATHY;? NO CAROTID BRUITS; NO? NECK MASS EYE: PERRLA, NORMAL CONJUNCTIVA; NO JAUNDICE CHEST:? REGULAR RATE.? ? NO RUBS.? PMI IS NON DISPLACED.? NO MURMURS; NORMAL S1- S2 PULMONARY:? DECREASED BS OVER THE BASES.? ? BIBASILAR CRACKLES NOTED;? NO PLEURAL RUBS ABDOMEN:? SOFT. NONDISTENDED.? BOWEL SOUNDS ARE PRESENT IN ALL 4 QUADRANTS.? NO MASS. EXTREMITIES: 2+ PITTING NICKOLAS LOWER EDEMA..? NO CYANOSIS OR CLUBBING NOTED. NEURO:? CRANIAL NERVES 2-12 GROSSLY INTACT. NO FOCAL NEUROLOGICAL DEFICIT NOTED. SENSATIONS INTACT MSK:? ADEQUATE PASSIVE RANGE OF MOTION FOR AGE.? NO JOINT EFFUSION.? NO SIGN OF TRAUMA SKIN:? FAIR SKIN TURGOR FOR AGE.? NO OPEN LESIONS :? NORMAL EXTERNAL GENITALIA.? 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 PSYCH :? UNABLE TO ASSESS Objective Labs Result Diagrams: 10/06/21 05:00 10/06/21 05:00 Labs: Laboratory Results - last 24 hr 10/06/21 10/06/21 10/06/21 05:00 05:00 05:00 WBC 7.2 RBC 3.56 L Hgb 10.9 L Hct 32.1 L MCV 90.3 MCH 30.5 MCHC 33.8 RDW 14.8 Plt Count 139 L Neut % (Auto) 71.3 Lymph % (Auto) 17.2 L [place] % (Auto) 8.1 Eos % (Auto) 2.8 Baso % (Auto) 0.6 Neut # (Auto) 5100 Lymph # (Auto) 1200 [place] # (Auto) 600 Eos # (Auto) 200 Baso # (Auto) 0 ABG pH ABG pCO2 ABG pO2 ABG HCO3 ABG Total CO2 ABG O2 Saturation ABG Base Excess FiO2 Sodium 135 L Potassium 3.3 L Chloride 102 Carbon Dioxide 26 BUN 14 Creatinine 0.69 Estimated GFR > 60 BUN/Creatinine Ratio 20.3 Glucose 140 H Calcium 7.6 L Phosphorus 2.6 L Magnesium 1.6 Total Bilirubin 0.9 AST 49 H ALT 25 Alkaline Phosphatase 113 Total Protein 6.7 Albumin 2.9 L Globulin 3.8 Albumin/Globulin Ratio 0.8 L 10/06/21 05:14 WBC RBC Hgb Hct MCV MCH MCHC RDW Plt Count Neut % (Auto) Lymph % (Auto) [place] % (Auto) Eos % (Auto) Baso % (Auto) Neut # (Auto) Lymph # (Auto) [place] # (Auto) Eos # (Auto) Baso # (Auto) ABG pH 7.43 ABG pCO2 39.3 ABG pO2 64 L ABG HCO3 26 ABG Total CO2 27 ABG O2 Saturation 93 L ABG Base Excess 2.0 FiO2 30 Sodium Potassium Chloride Carbon Dioxide BUN Creatinine Estimated GFR BUN/Creatinine Ratio Glucose Calcium Phosphorus Magnesium Total Bilirubin AST ALT Alkaline Phosphatase Total Protein Albumin Globulin Albumin/Globulin Ratio [facility] Medical History (Updated 10/06/21 @ 10:01 by Tanner Mistyr MD) Acid reflux Chronic insomnia Hyperlipidemia Hypertension Hypothyroidism (acquired) Social History household members: spouse Smoking Status: Unknown if ever smoked alcohol intake: current Assessment & Plan Assessment & Plan narrative: IMPRESSION ACUTE HYPOXIC RESPIRATORY FAILURE SECONDARY TO C.A PNEUMONIA. ACUTE VIRAL PNEUMONITIS.? PARAINFLUENZA 3 ACUTE BACTERIAL PNEUMONIA. POA;? ACQUIRED PNEUMONIA SUSPECTED.? MSSA POSSIBLE SEPSIS.? PRESENT ON ARRIVAL.? SOURCE OF INFECTION IS LIKELY THE LUNG. LEUKOCYTOSIS.? SECONDARY TO INFECTIOUS PROCESS ELEVATED LIVER ENZYME. MONITOR CLOSELY LACTIC ACIDOSIS.? SECONDARY TO SEPSIS AND RESPIRATORY FAILURE COMBINED . RESOLVED ANEMIA.? THIS COULD BE OF CHRONIC DISEASE.? OTHER? TYPES CAN BE WORKUP OUTPATIENT IS SUSPECTED ELEVATED BNP.? COULD BE RELATED TO CONGESTIVE FAILURE.? PATIENT HAS EDEMA PRIOR TIA PER HISTORY.. AWARE OBESITY WITH A BMI OF 39 HYPERTENSION PER HISTORY HYPOTHYROIDISM.? ACQUIRED.? PER HISTORY TYPE 2 DM.? [id number] PLAN PATIENT HAD RECEIVED MULTIPLE BREATHING TRIALS. TODAYL PER NURSING, PATIENT DID WELL IN THE BEGINNING DURING A BREATHING TRIAL SUBSEQUENTLY BECAME TACHYCARDIC HAD TO BE PLACED BACK ON VENTILATOR MODE WILL CONTINUE AND DEFER VENT MANAGEMENT TO THE CRITICAL CARE TEAM WHICH ASSISTANCE IS GREATLY APPRECIATED PLAN TO RETRY BREATHING TRIAL ONCE INDICATED SPOKE TO NURSING AND PRECEDEX WOULD BE CONSIDERED TO USE FOR SEDATION DURING BREATHING TRIALS IF OKAY WITH CRITICAL CARE LABS ARE FAIRLY STABLE CHEST X-RAY APPEARS TO BE STABLE PER MY READ AND RADIOLOGY. NO SIGNIFICANT WORSENING NOTED ON THE CHEST FILM. CONTINUE TO FOLLOW CLOSELY WITH DAILY CHEST X-RAY AND ABG WHILE ON THE VENT. LABS ORDERED FOR DAILY WELL. MSSA NOTED ON SPUTUM CULTURE ANTIBIOTICS ADJUSTED PER CRITICAL CARE TEAM. AGAIN WILL DEFER AGAIN STRICT ASPIRATION PRECAUTIONS TO CONTINUE AT ALL TIMES ADDITIONAL MANAGEMENT PER CLINICAL COURSE PROGNOSIS REMAINS GUARDED 10/05 ?PATIENT REMAIN INTUBATED THIS MORNING ?HOWEVER SHE APPEARS TO BE IMPROVED ?SHE IS DOING FAIRLY WELL ON THE VENT ?ON 35% FIO2 WITH PEEP LOWERED OVERNIGHT ? MAP? REMAINS? ABOVE 65 WITHOUT REQUIRING PRESSORS ?ASSISTANCE FROM THE CRITICAL CARE TEAM GREATLY APPRECIATED ?SPUTUM GROWING STAPHYLOCOCCUS AUREUS ?HOWEVER WBC LEVEL IS IMPROVING ?PATIENT IS ON CEFEPIME AND DOXY ?WILL CONTINUE CURRENT ANTIBIOTICS FOR NOW ?CONTINUE TO MONITOR CLOSELY WITH DAILY LAB APPEARS TO TOLERATE FEEDING VERY WELL ?CONTINUE ? AGGRESSIVE PULMONARY TOILETING ?ADDITIONAL MANAGEMENT PER CLINICAL COURSE ?PLAN FOR WEANING TRIAL TODAY 10/05 AND POSSIBLE EXTUBATION 10/04 PATIENT ADMITTED TO THE ICU INTUBATED OVERNIGHT DUE TO WORSENING RESPIRATORY STATUS CRITICAL CARE TEAM CONSULTED ASSISTANCE FROM THE CRITICAL CARE TEAM GREATLY APPRECIATED IN DISCHARGING CASE WILL FOLLOW RECOMMENDATIONS THEY ARE RECEIVED HAS CENTRAL LINE CONSIDER AN A LINE? WELL FOR CLOSER MONITORING IF INDICATED PRESSORS NEEDED TO MAINTAIN MAP ABOVE 65 AT ALL TIMES DAILY CHEST X-RAY AND ABG WHILE ON THE VENT STARTED ON TUBE FEEDING NURSING TO MAINTAIN STRICT ASPIRATION PRECAUTIONS HAVE ADDED THE BED NEED TO BE ELEVATED AT ALL TIMES ABOVE 35? CONSULT DIETITIAN FOR RECOMMENDATIONS MONITOR BLOOD SUGAR LEVEL CLOSELY STARTED ON INSULIN SLIDING SCALE MAINTAIN PROPER ISOLATION PER HOSPITAL PROTOCOL DUE TO FLU DIAGNOSIS CONTINUE ANTIBIOTICS WELL IN REGARD TO HER PNEUMONIA. MULTIFOCAL PNEUMONIA SUSPECTED ON INITIAL IMAGING PATIENT IS ON ZOSYN OVERNIGHT WILL ADD DOXYCYCLINE SPUTUM CULTURE HAS BEEN COLLECTED AND WILL FOLLOW CLOSELY FOLLOW CLOSELY WITH SERIAL FILMS AGGRESSIVE PULMONARY TOILETING WITH RESPIRATORY THERAPY ASSISTANCE ADDITIONAL MANAGEMENT PER CLINICAL COURSE PROGNOSIS IS GUARDED I SPOKE TO PATIENT'S TODAY IN REGARD TO THE CASE. Time Spent With Patient Critical Care time: I spent a total of [] minutes of critical care time on this patient's care today; this time is exclusive of procedural time. Quality VTE Deep Vein Thrombosis/Pulmonary Embolism Present on Admission: No
[2021-10-06] MEDS: propofoL 1,000 MG/100 ML VIAL 17.881 MG IV ×2 (15:40→19:39)
[2021-10-06] MEDS: fentaNYL 1,000 MCG in DEXTROSE 5% IN WATER 250 ML 5.364 MCG IV (17:47)
--- NOTE | 2021-10-06 18:01 | PC.NURSE ---
Day Shift Note Patient sedation vacation this AM done and breathing trial done between 0930 and 1230. Reviewed during multidisciplinary rounds with Dr. Mistry with instructions given to continue patient on breathing trial for as long as patient could tolerate (duration of shift) with possible extubation if patient passed. However, at 1230, patient had increased work of breathing along with increased RR (30s) and required placement back on ventilator support. FIO2 increased to 40% by RT during breathing trial and remains at this level. Dr. Mistry and Dr. Russell both updated on breathing trial results. SpO2 93-94%. Propofol at 30 mcg/kg/min and fentanyl at 0.2 mcg/kg/hr with RASS -2. Lungs coarse crackles bilaterally, worse to left, small amount yellow/white/blood streaked sputum via ET tube suction. Pineda catheter in place draining clear yellow urine. Bilateral soft wrist restraints in place. Tube feeds being tolerated via OG tube. Turning q 2 hours to offload pressure to buttocks.
--- NOTE | 2021-10-06 20:31 | PM.ICURNDS ---
- :: This patient was seen via real time interactive two-way audiovisual telecommunication. Note: Multidisciplinary round completed. Failed SBT today due to tachypnea. Resp cx + MSSA on appropriate abx. Patient noted to be tachypnea despite being on propofol 35 which was increased to 50 mcg. Increased lasix to 40 mg IV BID. D/w RN.
[2021-10-06] MEDS: propofoL 1,000 MG/100 ML VIAL 23.841 MG IV (23:10)
[2021-10-06] MEDS: FUROSEMIDE 40 MG/4 ML VIAL IV (23:17)
--- NOTE | 2021-10-06 23:47 | PC.NURSE ---
2200 Pt bathed and cleansed with chlorhexadine cloths around central line, and vaibhav care done. Blanchable redness noted on sacral area, barrier cream applied and Alevyn dressing applied. Continuing to turn side to side q2h. Pt remains on Propofol drip @ 40mcg/kg/min and Fentanyl at 0.2Mcg/kg as ordered. Pt opens eyes when touched then falls back to sleep. RR19, vent settings unchanged. Tube feedings remain at goal.
[2021-10-07] VITALS (60 sets, daily range): BP systolic 137–186; BP diastolic 63–115; PULSE 74–87; RESP 16–44; TEMP 37.2–38.4; O2SAT 84–100
[2021-10-07] MEDS: NAFCILLIN IV ×5 (03:33→19:45)
[2021-10-07] MEDS: SODIUM CHLORIDE 0.9% IV ×5 (03:33→19:45)
[2021-10-07] MEDS: propofoL 1,000 MG/100 ML VIAL 17.881 MG IV (03:38)
[2021-10-07] MEDS: SODIUM CHLORIDE 0.9% FLUSH 10 ML IV ×4 (03:46→20:44)
[2021-10-07 04:22] LABS: Add Manual Diff / Slide Review NO; Basophils Absolute Auto 100 /uL (0-100); Basophils Percent Auto 0.9 % (0-2); Eosinophils Absolute Auto 200 /uL (0-450); Eosinophils Percent Auto 3.1 % (2-4); Hematocrit 32.1 % (36-46); Hemoglobin 10.9 g/dL (12.0-16.0); Lymphocytes Absolute Auto 1200 /uL (1100-4500); Mean Corpuscular Hemoglobin 30.7 PG (26-34); Mean Corpuscular Volume 90.2 fL (80-100); Monocytes Absolute Auto 700 /uL (0-900); Monocytes Percent Auto 8.9 % (3-14); Neutrophils Absolute Auto 5300 /uL (1500-7000); Neutrophils Percent Auto 71.1 % (50-75); Platelet Count 136 X10^3/uL (150-400); Red Blood Cell Count 3.56 X10^6/uL (4.0-5.2); Red Cell Distribution Width 14.9 % (11.6-14.8); White Blood Cell Count 7.5 X10^3/uL (4.5-11.0)
[2021-10-07 04:32] LABS: Alanine Aminotransferase 26 IU/L (<35); Albumin 2.8 g/dL (3.5-5.0); Albumin Globulin Ratio 0.7 (1.0-2.8); Alkaline Phosphatase 113 U/L (38-126); Aspartate Aminotransferase 59 IU/L (14-36); BUN Creatinine Ratio 14.5 (6-22); Bilirubin Total 0.9 mg/dL (0.2-1.3); Blood Urea Nitrogen 9 mg/dL (7-17); Calcium 7.5 mg/dL (8.4-10.2); Carbon Dioxide 28 mmol/L (22-32); Chloride 102 mmol/L (98-107); Estimated Glomerular Filt Rate > 60 mL/min (>60); Globulin 3.8 g/dL (1.7-4.1); Glucose 145 mg/dL (80-110); HEMOLYSIS < 15 (0-50); Potassium 3.5 mmol/L (3.4-5.1); Sodium 136 mmol/L (137-145); Total Protein 6.6 g/dL (6.3-8.2)
[2021-10-07 04:40] LABS: Magnesium 1.6 mg/dL (1.6-2.3); Phosphorous 2.8 mg/dL (2.8-4.1)
[2021-10-07] MEDS: INSULIN LISPRO 100 UNIT/ML 3ML VIAL SUBCUT ×3 (05:52→18:09)
--- NOTE | 2021-10-07 06:00 | DI.RAD.S_ITS ---
PROCEDURE: XR CHEST 1V INDICATIONS: Intubated TECHNIQUE: One view of the chest was acquired. COMPARISON: [facility], , XR CHEST 1V, 10/06/2021, 6:14. FINDINGS: Surgical changes and devices: The endotracheal tube, NG tube, and left central venous catheter are unchanged. Lungs and pleura: Diffuse patchy pulmonary opacities are redemonstrated. No pneumothorax. Mediastinum: Mediastinal contours appear normal. Heart size is enlarged, as before. Bones and chest wall: No suspicious bony lesions. Healed posterior right rib fractures are redemonstrated. Overlying soft tissues appear unremarkable. IMPRESSION: Persistent pulmonary radiopacities. No interval change. Dictated by: Jana Weber M.D. on 10/07/2021 at 9:19 Approved by: Jana Weber M.D. on 10/07/2021 at 9:20
[2021-10-07] MEDS: CHLORHEXIDINE GLUCONATE 15 ML CUP PO ×3 (06:05→18:13)
[2021-10-07 06:08] LABS: Fractionated Inspired Oxygen 40; HCO3 ABG 28 mmol/L (22-26); Oxygen Saturation ABG 94 % (95-100); PCO2 ABG 40.5 mmHg (35-45); PO2 ABG 66 mmHg (80-100); TCO2 ABG 29 mmol/L (21-31); pH ABG 7.45 (7.35-7.45)
--- NOTE | 2021-10-07 07:36 | P.TELICUPN_ITS ---
Subjective Subjective If camera was activated, add TeleICU A-V statement: Patient seen with two way A-V system Interval history: 71-year-old female with a history of hypertension, hyperlipidemia, depression, hypothyroidism, diabetes mellitus type 2, insomnia and GERD admitted 10/03/21 with acute respiratory failure secondary to Parainfluenza and MSSA PNA. Pt. re quired intubation 10/04/21. Recent Events: Patient failed SBT yesterday because of tachypnea. Despite Lasix 40 mg BID, patient not net neg in last 24 hours. Current Medications Current Medications Medications: Home Medications amlodipine 5 mg tablet 5 mg PO BID 10/04/21 [History Confirmed 10/04/21] aspirin 81 mg tablet 81 mg PO DAILY 10/04/21 [History Confirmed 10/04/21] atorvastatin 20 mg tablet 20 mg PO DAILY 10/04/21 [History Confirmed 10/04/21] calcium citrate 200 mg (950 mg) tablet 200 mg PO DAILY 10/04/21 [History Confirmed 10/04/21] cyclobenzaprine 10 mg tablet 10 mg PO TID PRN 10/04/21 [History Confirmed 10/04/21] fluoxetine 40 mg capsule (Prozac) 40 mg PO BID 10/04/21 [History Confirmed 10/04/21] fluticasone 250 mcg-salmeterol 50 mcg/dose blistr powdr for inhalation 1 inh INHALATION BID 10/04/21 [History Confirmed 10/04/21] gabapentin 300 mg capsule 300 mg PO BEDTIME 10/04/21 [History Confirmed 10/04/21] levothyroxine 150 mcg tablet 75 mcg PO DAILY 10/04/21 [History Confirmed 10/04/21] loratadine 10 mg tablet 10 mg PO DAILY 10/04/21 [History Confirmed 10/04/21] meloxicam 15 mg tablet 15 mg PO DAILY 10/04/21 [History Confirmed 10/04/21] metformin 500 mg tablet 500 mg PO BID 10/04/21 [History Confirmed 10/04/21] metoprolol tartrate 50 mg tablet 50 mg PO BID 10/04/21 [History Confirmed 10/04/21] omega-3 fatty acids 1,200 mg PO DAILY 10/04/21 [History Confirmed 10/04/21] omeprazole 20 mg capsule,delayed release 20 mg PO BID 10/04/21 [History Confirmed 10/04/21] trazodone 150 mg tablet 75 mg PO BEDTIME PRN 10/04/21 [History Confirmed 10/04/21] zolpidem 5 mg tablet 5 mg PO BEDTIME PRN 10/04/21 [History Confirmed 10/04/21] Visit Medications (administered) Generic Name Dose Route Start Last Admin Trade Name Freq PRN Reason Stop Dose Admin Acetaminophen 650 mg 10/04/21 00:33 10/06/21 01:19 Acetaminophen 650 Mg Supp OH 650 mg Q4HR PRN Administration Fever/Mild Pain (1-3) Chlorhexidine Gluconate 15 ml 10/04/21 06:00 10/07/21 06:05 Chlorhexidine Gluconate 15 Ml Cup PO 15 ml Q6HR RYLEE Administration Enoxaparin Sodium 40 mg 10/04/21 09:00 10/06/21 08:04 Enoxaparin 40 Mg/0.4 Ml Syringe SUBCUT 40 mg DAILY RYLEE Administration Famotidine 20 mg 10/04/21 09:00 10/06/21 20:53 Famotidine 20 Mg/2 Ml Vial IV 20 mg BID RYLEE Administration Furosemide 40 mg 10/07/21 00:00 10/06/21 23:17 Furosemide 40 Mg/4 Ml Vial IV 40 mg Q12HR RYLEE Administration Heparin Sodium (Porcine) 50 unit 10/04/21 08:46 10/07/21 03:46 Heparin Flush (Cl/Picc/Mid-Line) 50 Unit/5 Ml Syringe IV 50 unit PRN PRN Administration Flush Heparin Sodium (Porcine) 50 unit 10/04/21 09:00 10/06/21 20:53 Heparin Flush (Cl/Picc/Mid-Line) 50 Unit/5 Ml Syringe IV 50 unit BID RYLEE Administration Fentanyl 1,000 mcg/ Dextrose 270 mls @ 18.775 mls/hr 10/04/21 01:00 10/06/21 17:47 IV 0.2 mcg/kg/hr TITRATE RYLEE 5.364 mls/hr Administration Protocol 0.7 MCG/KG/HR Propofol 1,000 mg in 100 mls @ 2.98 mls/hr 10/04/21 01:00 10/07/21 05:00 Propofol IV 20 mcg/kg/min TITRATE RYLEE 11.92 mls/hr Titration Protocol 5 MCG/KG/MIN Nafcillin Sodium 1 gm/ Sodium 100 mls @ 200 mls/hr 10/06/21 12:00 10/07/21 04:13 Chloride IV Infused Q4H RYLEE Infusion Insulin Human Lispro 0 unit 10/04/21 12:00 10/07/21 05:52 Insulin Lispro 100 Unit/Ml 3ml Vial SUBCUT 1 unit Q6H RYLEE Administration Protocol Sodium Chloride 10 ml 10/04/21 08:46 10/07/21 03:46 Sodium Chloride 0.9% Flush IV 10 ml PRN PRN Administration Flush Sodium Chloride 10 ml 10/04/21 09:00 10/06/21 20:53 Sodium Chloride 0.9% Flush IV 10 ml BID RYLEE Administration Objective Ventilator Parameters: Ventilator Settings FiO2 40 CPAP Pressure Amount 5 RT Vent Frequency 16 Ventilator Tidal Volume 420 Exhaled Vt/kg IBW 7 Positive End Expiratory 5 Pressure Ventilator Pressure Support 8 Inspiratory Phase Time 0.8 I:E Ratio 1:3 Patient Position HOB >= 30 degrees Labs Result Diagrams: 10/07/21 04:00 10/07/21 04:00 Labs: Laboratory Results - last 24 hr 10/07/21 10/07/21 10/07/21 04:00 04:00 04:00 WBC 7.5 RBC 3.56 L Hgb 10.9 L Hct 32.1 L MCV 90.2 MCH 30.7 MCHC 34.0 RDW 14.9 H Plt Count 136 L Neut % (Auto) 71.1 Lymph % (Auto) 16.0 L [place] % (Auto) 8.9 Eos % (Auto) 3.1 Baso % (Auto) 0.9 Neut # (Auto) 5300 Lymph # (Auto) 1200 [place] # (Auto) 700 Eos # (Auto) 200 Baso # (Auto) 100 ABG pH ABG pCO2 ABG pO2 ABG HCO3 ABG Total CO2 ABG O2 Saturation ABG Base Excess FiO2 Sodium 136 L Potassium 3.5 Chloride 102 Carbon Dioxide 28 BUN 9 Creatinine 0.62 Estimated GFR > 60 BUN/Creatinine Ratio 14.5 Glucose 145 H Calcium 7.5 L Phosphorus 2.8 Magnesium 1.6 Total Bilirubin 0.9 AST 59 H ALT 26 Alkaline Phosphatase 113 Total Protein 6.6 Albumin 2.8 L Globulin 3.8 Albumin/Globulin Ratio 0.7 L 10/07/21 05:36 WBC RBC Hgb Hct MCV MCH MCHC RDW Plt Count Neut % (Auto) Lymph % (Auto) [place] % (Auto) Eos % (Auto) Baso % (Auto) Neut # (Auto) Lymph # (Auto) [place] # (Auto) Eos # (Auto) Baso # (Auto) ABG pH 7.45 ABG pCO2 40.5 ABG pO2 66 L ABG HCO3 28 H ABG Total CO2 29 ABG O2 Saturation 94 L ABG Base Excess 4.0 H FiO2 40 Sodium Potassium Chloride Carbon Dioxide BUN Creatinine Estimated GFR BUN/Creatinine Ratio Glucose Calcium Phosphorus Magnesium Total Bilirubin AST ALT Alkaline Phosphatase Total Protein Albumin Globulin Albumin/Globulin Ratio Exam Vital Signs (past 8 hours): - 10/07/21 00:00 10/07/21 00:23 10/07/21 00:25 Temperature 99.3 F 99.5 F 99.3 F Pulse Rate 82 82 82 Respiratory Rate 19 18 19 Blood Pressure 174/81 H 176/79 H Pulse Oximetry 97 99 99 10/07/21 00:56 10/07/21 01:00 10/07/21 01:06 Temperature 99.5 F 99.5 F 99.5 F Pulse Rate 80 81 81 Respiratory Rate 19 19 18 Blood Pressure 178/81 H Pulse Oximetry 95 95 95 10/07/21 02:00 10/07/21 03:01 10/07/21 03:05 Temperature 99.3 F 99.1 F 99.1 F Pulse Rate 80 82 82 Respiratory Rate 22 22 22 Blood Pressure 164/72 H 151/69 H Pulse Oximetry 96 94 94 10/07/21 04:00 10/07/21 04:09 10/07/21 05:00 Temperature 99.1 F 99.0 F 99.0 F Pulse Rate 84 82 81 Respiratory Rate 31 H 19 18 Blood Pressure 142/64 H 137/63 Pulse Oximetry 96 97 96 10/07/21 05:08 10/07/21 06:00 10/07/21 06:02 Temperature 99.0 F 99.1 F 99.1 F Pulse Rate 83 82 81 Respiratory Rate 32 H 29 H 23 Blood Pressure 147/115 H 167/98 H Pulse Oximetry 94 92 95 10/07/21 06:03 Temperature 99.1 F Pulse Rate 81 Respiratory Rate 23 Blood Pressure Pulse Oximetry 95 Fraction of Inspired Oxygen 30 Oxygen Delivery Method Mechanical Ventilation Oxygen Flow Rate 15 Quality TeleICU VTE Deep Vein Thrombosis/Pulmonary Embolism Present on Admission: No Assessment & Plan Assessment & Plan narrative: Assessment Acute respiratory failure requiring intubation Parainfluenza and MSSA PNA DM 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 Can try transitioning to precedex drip if patient too agitated when propofol weaned down CV: restart patient's home amlodipine 5 mgh QD for BP control Pulm: SBT as tolerated ID: continue Nafcillin for MSSA PNA Heme: monitor daily cbc GI/nutrition: tube feeds as tolerated FEN/Renal: increase lasix from 40 mg BID to TID for more effective diuresis. Replace K , Ca, and Mag as needed Endo: BG currently well controlled. SSI prn PPx: famotidine and lovenox CCT 45 min Time Spent With Patient Critical Care time: I spent a total of [] minutes of critical care time on this patient's care today; this time is exclusive of procedural time.
[2021-10-07] MEDS: FUROSEMIDE 40 MG/4 ML VIAL IV ×3 (08:26→21:36)
[2021-10-07] MEDS: FAMOTIDINE 20 MG/2 ML VIAL IV ×2 (08:26→20:44)
[2021-10-07] MEDS: ENOXAPARIN 40 MG/0.4 ML SYRINGE SUBCUT (08:26)
[2021-10-07] MEDS: dexmedeTOMIDine in 0.9 % NaCL 400 MCG/100 ML PLAST..BAG 12.417 MCG IV (08:59)
[2021-10-07] MEDS: POTASSIUM CHLORIDE 20 MEQ/15 ML UDC 40 MEQ TUBE (09:03)
[2021-10-07] MEDS: MAGNESIUM SULFATE 2 GM/50 ML PIGGYBACK IV (09:04)
[2021-10-07] MEDS: AMLODIPINE 5 MG TABLET TUBE (09:50)
[2021-10-07] MEDS: dexmedeTOMIDine in 0.9 % NaCL 400 MCG/100 ML PLAST..BAG 29.801 MCG IV (12:21)
--- NOTE | 2021-10-07 15:09 | DIET.CONS ---
Dietary Consultation Note Admission Date: 10/03/2021 21:57 Assessment: 71 y/o F continues on vent at TF goal rate of 30 ml/hr Jevity. Has been titrated off propofol today. Can now increase rate and switch to glucerna to evaporator helper with potential hyperglycemia. Current BG well managed. RN reports pt tolerating low rate well. Yesterday pt had breathing trial but had to be placed back on ventilator support. Reports absent bowel tones and no BM. Rec increase rate as tolerated to meet full nutrition needs. Ht: 160.02 cm Wt: 99.337 kg BMI: 38.7 Last BM: 10/03/21 (10/03/21 22:33) MNA: 13 Barrie Score: 14 Diet: 10/04/21 Lunch Tube Feeding Diet Diet Modifications: TF Supplement type: Jevity 1.2 huyen TF mode of delivery: Continuous Starting flow rate mL/hr: 10 Flow rate goal mL/hr: 30 Titration Schedule to reach Goal Rate: 10-20ml/hr q 4hr Max total daily volume in mL: 2,000 Free fluid: 250 Free Water Frequency: Q4H Nutrition Type of Feeding Tube NG/OG 10/07/21 04:00 Type of Feeding Tube NG/OG 10/07/21 00:10 Type of Feeding Tube NG/OG 10/06/21 20:28 Type of Feeding Tube NG/OG 10/06/21 16:00 Type of Feeding Tube NG/OG 10/06/21 06:00 Type of Feeding Tube NG/OG 10/06/21 02:00 Type of Feeding Tube jevity 1.2cal 10/06/21 00:05 Type of Feeding Tube NG/OG 10/05/21 22:14 Type of Feeding Tube NG/OG 10/05/21 17:00 Labs: RBC 3.56 X10^6/uL (4.0-5.2) L 10/07/21 04:00 Hgb 10.9 g/dL (12.0-16.0) L 10/07/21 04:00 Hct 32.1 % (36-46) L 10/07/21 04:00 Creatinine 0.62 mg/dL (0.52-1.04) 10/07/21 04:00 Lactate 1.6 mmol/L (0.7-2.1) 10/03/21 21:20 NT-Pro-B Natriuret Pep 2650 pg/mL (<125) H 10/04/21 05:00 Nutrition Diagnosis: Inadequate oral intake r/t intubation aeb respiratory failure + vent and therefore inability to obtain energy via PO. Interventions: 1. Recc feeding continuous Glucerna 1.2 starting at 20 ml/hr titration up by 10-20mL q 4hr as tolerated until reaching goal of 60 ml/hr. 2. Provide 1 protein pkts per day to help meet protein needs. 3. Rec 150 ml free water flushes q 4 hr, pending fluid status. Hospitalist to manage fluids. Daily fluid recs 9367-8632 ml. Formula provides 1166 ml fluids (55-65% of needs), with flushes fluids equal 2066 ml (100% of needs). 4. HOB elevated at least 30 degrees at all time to reduce risk of aspiration. 4. Daily weights please. 6. Monitor refeeding labs, replenish prn. EER: 8519-8111 kcals, 106g protein, 5598-5654 ml fluids 18-20 kcal/kg (per BMI + vent using actual BW of 99kg) 1.5g/kg protein (per BMi + vent using adj BW 71kg) 25-28ml/kg fluids (per risk for fluid overload using adj BW 71 kg) Formula + PRO pkt provides: 1772 kcals, 97g PRO, 168g CHO, and 86g fat Monitoring/Evaluations: TF tolerance, weight, refeeeding labs. RD follow-up tomorrow Electronically Signed by: Itzel Mark 10/07/21 15:09 Clinical Diet[address] [id number]
--- NOTE | 2021-10-07 15:25 | PC.NURSE ---
Spoke with Dr. Andrews first thing this morning, discussed new orders she placed and discussed her plan to attempt sedation vacation this morning and transition to precedex (from propofol) today if needed. Fentanyl was paused at 830 am, and patient quickly became agitated and uncomfortable: gagging/choking on ET and respiration rate up to 44. Fentanyl restarted and increased to assist with patient's discomfort, RASS was up to +3. Transition from propofol to precedex as ordered (see MAR), titrating to improve RASS. Patient continued with multiple episodes of discomfort, increased RR and taking some time to recover after turning and repositioning. Continued to titrate fentanyl and precedex (see MAR) to achieve RASS of -2. Pineda remains in place, intact, draining clear yellow urine. Tube feedings will be updated today per nutrition, patient tolerating well at this time, no BM noted. Continue to turn and reposition every 2 hours as tolerated, for pressure relief. Soft wrist restraints in place for patient safety with multiple lines in place with 2 hour checks continuing and, patient tolerating well. Bed alarm on for safety. COntinue to monitor.
[2021-10-07] MEDS: SODIUM CHLORIDE 0.9% 250 ML 21 ML IV (15:41)
[2021-10-07] MEDS: dexmedeTOMIDine in 0.9 % NaCL 400 MCG/100 ML PLAST..BAG 24.834 MCG IV (16:20)
--- NOTE | 2021-10-07 16:42 | PM.PN.1 ---
Subjective Subjective Date Patient Seen: 10/07/21 Interval history: THIS IS A 71-YEAR-OLD FEMALE BROUGHT TO THE HOSPITAL WITH SIGNS OF ACUTE TODAYTODAY? RESPIRATORY FAILURE PATIENT INTUBATED ON 10/03 HAS A LEFT SUBCLAVIAN CENTRAL LINE INSERTED ON 10/03 CRITICAL CARE TEAM CONSULTED PATIENT IS POSITIVE FOR PARAINFLUENZA 3 STARTED ON TUBE FEEDING 10/04 TODAY UNABLE TO OBTAIN DUE TO CURRENT CONDITION Exam Vital Signs (past 8 hours): - 10/07/21 09:00 10/07/21 09:30 10/07/21 09:53 Temperature 99.1 F 99.3 F 99.5 F Pulse Rate 83 86 87 Respiratory Rate 20 19 29 H Blood Pressure 168/75 H Pulse Oximetry 98 100 84 L 10/07/21 09:55 10/07/21 10:00 10/07/21 10:30 Temperature 99.5 F 99.5 F 99.1 F Pulse Rate 86 85 79 Respiratory Rate 22 27 H 27 H Blood Pressure 186/90 H 155/76 H Pulse Oximetry 95 93 92 10/07/21 11:00 10/07/21 11:15 10/07/21 11:21 Temperature 99.3 F Pulse Rate 77 77 Respiratory Rate 19 44 H 18 Blood Pressure 141/63 H Pulse Oximetry 92 94 10/07/21 12:00 10/07/21 12:30 10/07/21 13:00 Temperature 99.1 F 99.3 F 99.5 F Pulse Rate 75 74 75 Respiratory Rate 16 25 H 18 Blood Pressure 152/70 H 163/75 H Pulse Oximetry 95 96 96 10/07/21 14:00 10/07/21 14:30 10/07/21 15:00 Temperature 99.5 F 99.5 F 99.7 F H Pulse Rate 76 75 75 Respiratory Rate 31 H 18 18 Blood Pressure 139/65 156/75 H Pulse Oximetry 93 94 95 Fraction of Inspired Oxygen 30 Oxygen Delivery Method Mechanical Ventilation Oxygen Flow Rate 15 Narrative Exam Narrative: INTUBATED ; OBESE HEAD ATRAUMATIC AND NORMOCEPHALIC NECK :? NO LYMPHADENOPATHY;? NO CAROTID BRUITS; NO? NECK MASS EYE: PERRLA, NORMAL CONJUNCTIVA; NO JAUNDICE CHEST:? REGULAR RATE.? ? NO RUBS.? PMI IS NON DISPLACED.? NO MURMURS; NORMAL S1-S2 PULMONARY:? DECREASED BS OVER THE BASES.? ? BIBASILAR CRACKLES NOTED;? NO PLEURAL RUBS ABDOMEN:? SOFT. NONDISTENDED.? BOWEL SOUNDS ARE PRESENT IN ALL 4 QUADRANTS.? NO MASS. EXTREMITIES: 2+ PITTING NICKOLAS LOWER EDEMA..? NO CYANOSIS OR CLUBBING NOTED. NEURO:? CRANIAL NERVES 2-12 GROSSLY INTACT. NO FOCAL NEUROLOGICAL DEFICIT NOTED. SENSATIONS INTACT MSK:? ADEQUATE PASSIVE RANGE OF MOTION FOR AGE.? NO JOINT EFFUSION.? NO SIGN OF TRAUMA SKIN:? FAIR SKIN TURGOR FOR AGE.? NO OPEN LESIONS :? NORMAL EXTERNAL GENITALIA.? 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 PSYCH :? UNABLE TO ASSESS Objective Labs Result Diagrams: 10/07/21 04:00 10/07/21 04:00 Labs: Laboratory Results - last 24 hr 10/07/21 10/07/21 10/07/21 04:00 04:00 04:00 WBC 7.5 RBC 3.56 L Hgb 10.9 L Hct 32.1 L MCV 90.2 MCH 30.7 MCHC 34.0 RDW 14.9 H Plt Count 136 L Neut % (Auto) 71.1 Lymph % (Auto) 16.0 L [place] % (Auto) 8.9 Eos % (Auto) 3.1 Baso % (Auto) 0.9 Neut # (Auto) 5300 Lymph # (Auto) 1200 [place] # (Auto) 700 Eos # (Auto) 200 Baso # (Auto) 100 ABG pH ABG pCO2 ABG pO2 ABG HCO3 ABG Total CO2 ABG O2 Saturation ABG Base Excess FiO2 Sodium 136 L Potassium 3.5 Chloride 102 Carbon Dioxide 28 BUN 9 Creatinine 0.62 Estimated GFR > 60 BUN/Creatinine Ratio 14.5 Glucose 145 H Calcium 7.5 L Phosphorus 2.8 Magnesium 1.6 Total Bilirubin 0.9 AST 59 H ALT 26 Alkaline Phosphatase 113 Total Protein 6.6 Albumin 2.8 L Globulin 3.8 Albumin/Globulin Ratio 0.7 L 10/07/21 05:36 WBC RBC Hgb Hct MCV MCH MCHC RDW Plt Count Neut % (Auto) Lymph % (Auto) [place] % (Auto) Eos % (Auto) Baso % (Auto) Neut # (Auto) Lymph # (Auto) [place] # (Auto) Eos # (Auto) Baso # (Auto) ABG pH 7.45 ABG pCO2 40.5 ABG pO2 66 L ABG HCO3 28 H ABG Total CO2 29 ABG O2 Saturation 94 L ABG Base Excess 4.0 H FiO2 40 Sodium Potassium Chloride Carbon Dioxide BUN Creatinine Estimated GFR BUN/Creatinine Ratio Glucose Calcium Phosphorus Magnesium Total Bilirubin AST ALT Alkaline Phosphatase Total Protein Albumin Globulin Albumin/Globulin Ratio [facility] Medical History (Updated 10/06/21 @ 10:01 by Tanner Mistry MD) Acid reflux Chronic insomnia Hyperlipidemia Hypertension Hypothyroidism (acquired) Social History household members: spouse Smoking Status: Unknown if ever smoked alcohol intake: current Assessment & Plan Assessment & Plan narrative: IMPRESSION ACUTE HYPOXIC RESPIRATORY FAILURE SECONDARY TO? C.A? PNEUMONIA. ACUTE VIRAL PNEUMONITIS.? PARAINFLUENZA 3 ACUTE BACTERIAL PNEUMONIA. POA;? ACQUIRED PNEUMONIA SUSPECTED.? MSSA POSSIBLE SEPSIS.? PRESENT ON ARRIVAL.? SOURCE OF INFECTION IS LIKELY THE LUNG. LEUKOCYTOSIS.? SECONDARY TO INFECTIOUS PROCESS ELEVATED LIVER ENZYME.? MONITOR CLOSELY LACTIC ACIDOSIS.? SECONDARY TO SEPSIS AND RESPIRATORY FAILURE COMBINED .? RESOLVED ANEMIA.? THIS COULD BE OF CHRONIC DISEASE.? OTHER? TYPES CAN BE WORKUP OUTPATIENT IS SUSPECTED ELEVATED BNP.? COULD BE RELATED TO CONGESTIVE FAILURE.? PATIENT HAS EDEMA PRIOR TIA PER HISTORY.. AWARE OBESITY WITH A BMI OF 39 HYPERTENSION PER HISTORY HYPOTHYROIDISM.? ACQUIRED.? PER HISTORY TYPE 2 DM.? [id number] PLAN ?PATIENT NOT BREATHING TRIAL VERY WELL DUE TO AGITATION? ?SPOKE TO NURSING AND WILL SWITCH TO? PRECEDEX AND FENTANYL ? HOLD PROPOFOL FOR NOW ?ASSISTANCE FROM CRITICAL CARE? GREATLY APPRECIATED ?WILL CONTINUE AND DEFER MOST ICU MANAGEMENT TODAY THEIR? TEAM ?ADDITIONAL MANAGEMENT PER? CLINICAL COURSE 10/06 ?PATIENT HAD RECEIVED MULTIPLE BREATHING TRIALS. ?TODAYL? PER NURSING, PATIENT DID WELL IN THE BEGINNING DURING A BREATHING TRIAL ?SUBSEQUENTLY BECAME TACHYCARDIC ?HAD TO BE PLACED BACK ON? VENTILATOR MODE ?WILL CONTINUE? AND DEFER VENT MANAGEMENT TO THE CRITICAL CARE TEAM? WHICH? ASSISTANCE IS GREATLY APPRECIATED ?PLAN TO RETRY BREATHING TRIAL? ONCE? INDICATED ?SPOKE TO NURSING AND PRECEDEX WOULD? BE CONSIDERED TO USE FOR SEDATION? DURING BREATHING TRIALS ?IF OKAY WITH CRITICAL CARE ?LABS ARE FAIRLY STABLE ?CHEST X-RAY APPEARS TO BE STABLE PER MY READ AND RADIOLOGY. NO SIGNIFICANT WORSENING NOTED ON THE CHEST FILM. ? CONTINUE TO FOLLOW CLOSELY WITH DAILY CHEST X-RAY AND ABG WHILE ON THE VENT. ? LABS ORDERED FOR DAILY WELL. ?MSSA NOTED ON SPUTUM CULTURE ?ANTIBIOTICS ADJUSTED PER CRITICAL CARE TEAM.? AGAIN WILL DEFER ? AGAIN STRICT ASPIRATION PRECAUTIONS TO CONTINUE? ?AT ALL TIMES ?ADDITIONAL MANAGEMENT PER CLINICAL COURSE ?PROGNOSIS REMAINS GUARDED 10/05 ?PATIENT REMAIN INTUBATED THIS MORNING ?HOWEVER SHE APPEARS TO BE IMPROVED ?SHE IS DOING FAIRLY WELL ON THE VENT ?ON 35% FIO2 WITH PEEP LOWERED OVERNIGHT ? MAP? REMAINS? ABOVE 65 WITHOUT REQUIRING PRESSORS ?ASSISTANCE FROM THE CRITICAL CARE TEAM GREATLY APPRECIATED ?SPUTUM GROWING STAPHYLOCOCCUS AUREUS ?HOWEVER WBC LEVEL IS IMPROVING ?PATIENT IS ON CEFEPIME AND DOXY ?WILL CONTINUE CURRENT ANTIBIOTICS FOR NOW ?CONTINUE TO MONITOR CLOSELY WITH DAILY LAB APPEARS TO TOLERATE FEEDING VERY WELL ?CONTINUE? ?AGGRESSIVE PULMONARY TOILETING ?ADDITIONAL MANAGEMENT PER CLINICAL COURSE ?PLAN FOR WEANING TRIAL TODAY 10/05 AND POSSIBLE EXTUBATION 10/04 PATIENT ADMITTED TO THE ICU INTUBATED OVERNIGHT DUE TO WORSENING RESPIRATORY STATUS CRITICAL CARE TEAM CONSULTED ASSISTANCE FROM THE CRITICAL CARE TEAM GREATLY APPRECIATED IN DISCHARGING CASE WILL FOLLOW RECOMMENDATIONS THEY ARE RECEIVED HAS CENTRAL LINE CONSIDER AN A LINE? WELL FOR CLOSER MONITORING IF INDICATED PRESSORS NEEDED TO MAINTAIN MAP ABOVE 65 AT ALL TIMES DAILY CHEST X-RAY AND ABG WHILE ON THE VENT STARTED ON TUBE FEEDING NURSING TO MAINTAIN STRICT ASPIRATION PRECAUTIONS HAVE ADDED THE BED NEED TO BE ELEVATED AT ALL TIMES ABOVE 35? CONSULT DIETITIAN FOR RECOMMENDATIONS MONITOR BLOOD SUGAR LEVEL CLOSELY STARTED ON INSULIN SLIDING SCALE MAINTAIN PROPER ISOLATION PER HOSPITAL PROTOCOL DUE TO FLU DIAGNOSIS CONTINUE ANTIBIOTICS WELL IN REGARD TO HER PNEUMONIA. MULTIFOCAL PNEUMONIA SUSPECTED ON INITIAL IMAGING PATIENT IS ON ZOSYN OVERNIGHT WILL ADD DOXYCYCLINE SPUTUM CULTURE HAS BEEN COLLECTED AND WILL FOLLOW CLOSELY FOLLOW CLOSELY WITH SERIAL FILMS AGGRESSIVE PULMONARY TOILETING WITH RESPIRATORY THERAPY ASSISTANCE ADDITIONAL MANAGEMENT PER CLINICAL COURSE PROGNOSIS IS GUARDED I SPOKE TO PATIENT'S TODAY IN REGARD TO THE CASE. Time Spent With Patient Critical Care time: I spent a total of [] minutes of critical care time on this patient's care today; this time is exclusive of procedural time. Quality VTE Deep Vein Thrombosis/Pulmonary Embolism Present on Admission: No
[2021-10-07] MEDS: NYSTATIN POWDER 15GM 1 APPLIC TOP (18:32)
[2021-10-07] MEDS: fentaNYL 1,000 MCG in DEXTROSE 5% IN WATER 250 ML 5.364 MCG IV (19:12)
[2021-10-07] MEDS: dexmedeTOMIDine in 0.9 % NaCL 400 MCG/100 ML PLAST..BAG 19.867 MCG IV (19:46)
--- NOTE | 2021-10-07 20:26 | PM.ICURNDS ---
- :: This patient was seen via real time interactive two-way audiovisual telecommunication. Note: Patient admitted for acute hypoxemia respiratory failure secondary to parainfluenza with superimposed MSSA pneumonia. Failed SBT due to severe agitation and tachypnea. Will start seroquel 25 mg nightly. Cont diuresis and abx. D/w RN.
[2021-10-07] MEDS: QUETIAPINE 25 MG TABLET PO (20:44)
[2021-10-08] VITALS (47 sets, daily range): BP systolic 125–167; BP diastolic 59–77; PULSE 64–75; RESP 11–68; TEMP 36.4–38.3; O2SAT 92–100
[2021-10-08] MEDS: NAFCILLIN IV ×7 (00:10→23:25)
[2021-10-08] MEDS: CHLORHEXIDINE GLUCONATE 15 ML CUP PO ×5 (00:10→23:26)
[2021-10-08] MEDS: SODIUM CHLORIDE 0.9% IV ×7 (00:10→23:25)
[2021-10-08] MEDS: ACETAMINOPHEN 650 MG SUPP PR (00:14)
[2021-10-08] MEDS: dexmedeTOMIDine in 0.9 % NaCL 400 MCG/100 ML PLAST..BAG 19.867 MCG IV ×3 (01:23→12:08)
[2021-10-08 03:59] LABS: Add Manual Diff / Slide Review NO; Basophils Absolute Auto 0 /uL (0-100); Basophils Percent Auto 0.6 % (0-2); Eosinophils Absolute Auto 200 /uL (0-450); Eosinophils Percent Auto 2.8 % (2-4); Hemoglobin 11.2 g/dL (12.0-16.0); Lymphocytes Absolute Auto 1300 /uL (1100-4500); Lymphocytes Percent Auto 18.4 % (25-40); Mean Corpuscular HGB Conc 33.8 % (30-36); Mean Corpuscular Hemoglobin 30.3 PG (26-34); Mean Corpuscular Volume 89.7 fL (80-100); Monocytes Absolute Auto 600 /uL (0-900); Monocytes Percent Auto 8.7 % (3-14); Neutrophils Absolute Auto 4900 /uL (1500-7000); Neutrophils Percent Auto 69.5 % (50-75); Platelet Count 139 X10^3/uL (150-400); Red Blood Cell Count 3.68 X10^6/uL (4.0-5.2); Red Cell Distribution Width 14.4 % (11.6-14.8); White Blood Cell Count 7.1 X10^3/uL (4.5-11.0)
[2021-10-08 04:08] LABS: Alanine Aminotransferase 30 IU/L (<35); Albumin 2.8 g/dL (3.5-5.0); Albumin Globulin Ratio 0.7 (1.0-2.8); Alkaline Phosphatase 108 U/L (38-126); Aspartate Aminotransferase 75 IU/L (14-36); BUN Creatinine Ratio 16.7 (6-22); Blood Urea Nitrogen 10 mg/dL (7-17); Calcium 7.5 mg/dL (8.4-10.2); Carbon Dioxide 32 mmol/L (22-32); Chloride 99 mmol/L (98-107); Estimated Glomerular Filt Rate > 60 mL/min (>60); Globulin 3.9 g/dL (1.7-4.1); Glucose 153 mg/dL (80-110); HEMOLYSIS < 15 (0-50); Potassium 3.3 mmol/L (3.4-5.1); Sodium 135 mmol/L (137-145); Total Protein 6.7 g/dL (6.3-8.2)
[2021-10-08 04:29] LABS: Magnesium 1.9 mg/dL (1.6-2.3); Phosphorous 2.8 mg/dL (2.8-4.1)
[2021-10-08] MEDS: FUROSEMIDE 40 MG/4 ML VIAL IV ×3 (05:40→21:44)
[2021-10-08] MEDS: INSULIN LISPRO 100 UNIT/ML 3ML VIAL SUBCUT ×3 (05:49→18:10)
--- NOTE | 2021-10-08 06:15 | PC.NURSE ---
Shift note: Pt has had longer periods of wakefulness, will slowly nod yes or no when asked, makes eye contact and tracks. Lung sounds improved, fine crackles on the left and clear but diminished on the right. Tube feeding of Glucerna 1.2 increased overnight to 50ml/hr, very little residual q 4 hrs - 4-5mls. Some blood tinged drainage noted from rectum.
[2021-10-08] MEDS: SODIUM CHLORIDE 0.9% 250 ML 21 ML IV ×2 (07:00→18:51)
--- NOTE | 2021-10-08 07:57 | DI.RAD.S_ITS ---
PROCEDURE: XR CHEST 1V INDICATIONS: pneumonia, intubated TECHNIQUE: One view of the chest was acquired. COMPARISON: [facility], CR, XR CHEST 1V, 10/07/2021, 6:46. FINDINGS: Surgical changes and devices: ET tube, NG tube, Port-A-Cath. Tip of Port-A-Cath projects to proximal superior vena cava. Lungs and pleura: No significant change, diffuse bilateral pulmonary infiltrates. No pleural effusions or pneumothorax. Mediastinum: Mediastinal contours appear normal. Heart size is normal. Bones and chest wall: No suspicious bony lesions. Overlying soft tissues appear unremarkable. IMPRESSION: Unchanged pulmonary status. Dictated by: Miguel Joshi M.D. on 10/08/2021 at 8:37 Approved by: Miguel Joshi M.D. on 10/08/2021 at 8:38
[2021-10-08] MEDS: AMLODIPINE 5 MG TABLET TUBE (08:36)
[2021-10-08] MEDS: ENOXAPARIN 40 MG/0.4 ML SYRINGE SUBCUT (08:36)
[2021-10-08] MEDS: FAMOTIDINE 20 MG/2 ML VIAL IV ×2 (08:36→20:36)
[2021-10-08] MEDS: SODIUM CHLORIDE 0.9% FLUSH 10 ML IV ×2 (08:37→20:42)
[2021-10-08] MEDS: POTASSIUM CHLORIDE IN WATER 10 MEQ/100 ML PIGGYBACK 100 MEQ IV ×4 (09:17→13:21)
--- NOTE | 2021-10-08 09:31 | PM.PN.EICU ---
Subjective Subjective Interval history: -- No acute issues overnight -- Satrt on seroquel 25 mg nightly for delirium -- ON fentanyl and precedex -- Check SAT and SBT -- Diuresed and negative 900 mL Current Medications Current Medications Medications: Home Medications amlodipine 5 mg tablet 5 mg PO BID 10/04/21 [History Confirmed 10/04/21] aspirin 81 mg tablet 81 mg PO DAILY 10/04/21 [History Confirmed 10/04/21] atorvastatin 20 mg tablet 20 mg PO DAILY 10/04/21 [History Confirmed 10/04/21] calcium citrate 200 mg (950 mg) tablet 200 mg PO DAILY 10/04/21 [History Confirmed 10/04/21] cyclobenzaprine 10 mg tablet 10 mg PO TID PRN 10/04/21 [History Confirmed 10/04/21] fluoxetine 40 mg capsule (Prozac) 40 mg PO BID 10/04/21 [History Confirmed 10/04/21] fluticasone 250 mcg-salmeterol 50 mcg/dose blistr powdr for inhalation 1 inh INHALATION BID 10/04/21 [History Confirmed 10/04/21] gabapentin 300 mg capsule 300 mg PO BEDTIME 10/04/21 [History Confirmed 10/04/21] levothyroxine 150 mcg tablet 75 mcg PO DAILY 10/04/21 [History Confirmed 10/04/21] loratadine 10 mg tablet 10 mg PO DAILY 10/04/21 [History Confirmed 10/04/21] meloxicam 15 mg tablet 15 mg PO DAILY 10/04/21 [History Confirmed 10/04/21] metformin 500 mg tablet 500 mg PO BID 10/04/21 [History Confirmed 10/04/21] metoprolol tartrate 50 mg tablet 50 mg PO BID 10/04/21 [History Confirmed 10/04/21] omega-3 fatty acids 1,200 mg PO DAILY 10/04/21 [History Confirmed 10/04/21] omeprazole 20 mg capsule,delayed release 20 mg PO BID 10/04/21 [History Confirmed 10/04/21] trazodone 150 mg tablet 75 mg PO BEDTIME PRN 10/04/21 [History Confirmed 10/04/21] zolpidem 5 mg tablet 5 mg PO BEDTIME PRN 10/04/21 [History Confirmed 10/04/21] Visit Medications (administered) Generic Name Dose Route Start Last Admin Trade Name Freq PRN Reason Stop Dose Admin Acetaminophen 650 mg 10/04/21 00:33 10/08/21 00:14 Acetaminophen 650 Mg Supp AR 650 mg Q4HR PRN Administration Fever/Mild Pain (1-3) Amlodipine Besylate 5 mg 10/07/21 09:00 10/08/21 08:36 Amlodipine 5 Mg Tablet TUBE 5 mg DAILY RYLEE Administration Chlorhexidine Gluconate 15 ml 10/04/21 06:00 10/08/21 05:40 Chlorhexidine Gluconate 15 Ml Cup PO 15 ml Q6HR RYLEE Administration Enoxaparin Sodium 40 mg 10/04/21 09:00 10/08/21 08:36 Enoxaparin 40 Mg/0.4 Ml Syringe SUBCUT 40 mg DAILY RYLEE Administration Famotidine 20 mg 10/04/21 09:00 10/08/21 08:36 Famotidine 20 Mg/2 Ml Vial IV 20 mg BID RYLEE Administration Furosemide 40 mg 10/07/21 07:45 10/08/21 05:40 Furosemide 40 Mg/4 Ml Vial IV 40 mg Q8HR RYLEE Administration Heparin Sodium (Porcine) 50 unit 10/04/21 08:46 10/07/21 03:46 Heparin Flush (Cl/Picc/Mid-Line) 50 Unit/5 Ml Syringe IV 50 unit PRN PRN Administration Flush Heparin Sodium (Porcine) 50 unit 10/04/21 09:00 10/08/21 08:37 Heparin Flush (Cl/Picc/Mid-Line) 50 Unit/5 Ml Syringe IV 50 unit BID RYLEE Administration Fentanyl 1,000 mcg/ Dextrose 270 mls @ 18.775 mls/hr 10/04/21 01:00 10/08/21 08:39 IV 0.2 mcg/kg/hr TITRATE RYLEE 5.364 mls/hr Titration Protocol 0.7 MCG/KG/HR Propofol 1,000 mg in 100 mls @ 2.98 mls/hr 10/04/21 01:00 10/07/21 09:00 Propofol IV 0 mcg/kg/min TITRATE RYLEE 0 mls/hr Titration Protocol 5 MCG/KG/MIN Nafcillin Sodium 1 gm/ Sodium 100 mls @ 200 mls/hr 10/06/21 12:00 10/08/21 08:36 Chloride IV 200 mls/hr Q4H RYLEE Administration dexmedeTOMIDine in 0.9 % NaCL 400 mcg in 100 mls @ 4.967 mls/hr 10/07/21 08:45 10/08/21 08:40 Precedex IV 0.6 mcg/kg/hr TITRATE RYLEE 14.901 mls/hr Titration Protocol 0.2 MCG/KG/HR Sodium Chloride 250 mls @ 21 mls/hr 10/07/21 15:21 10/07/21 15:41 Normal Saline 0.9% IV 21 mls/hr Q24H PRN Administration Flush POTASSIUM CHLORIDE IN WATER 10 meq in 100 mls @ 100 mls/hr 10/08/21 09:15 10/08/21 09:17 Potassium Cl 10 Meq/100 Ml Tory IV 10/08/21 13:14 100 mls/hr Q1H RYLEE Administration Insulin Human Lispro 0 unit 10/04/21 12:00 10/08/21 05:49 Insulin Lispro 100 Unit/Ml 3ml Vial SUBCUT 1 unit Q6H RYLEE Administration Protocol Nystatin 1 applic 10/07/21 18:13 10/07/21 18:32 Nystatin Powder 15gm TOP 1 applic BID PRN Administration Rash Quetiapine Fumarate 25 mg 10/07/21 21:00 10/07/21 20:44 Quetiapine 25 Mg Tablet PO 25 mg BEDTIME RYLEE Administration Sodium Chloride 10 ml 10/04/21 08:46 10/07/21 08:27 Sodium Chloride 0.9% Flush IV 10 ml PRN PRN Administration Flush Sodium Chloride 10 ml 10/04/21 09:00 10/08/21 08:37 Sodium Chloride 0.9% Flush IV 10 ml BID RYLEE Administration Objective Ventilator Parameters: Ventilator Settings FiO2 30 CPAP Pressure Amount 5 RT Vent Frequency 16 Ventilator Tidal Volume 420 Exhaled Vt/kg IBW 7 Positive End Expiratory 5 Pressure Ventilator Pressure Support 8 Inspiratory Phase Time 0.8 I:E Ratio 1:3.2 Patient Position HOB >= 30 degrees Labs Result Diagrams: 10/08/21 03:50 10/08/21 03:50 Labs: Laboratory Results - last 24 hr 10/08/21 10/08/21 10/08/21 03:50 03:50 03:50 WBC 7.1 RBC 3.68 L Hgb 11.2 L Hct 33.0 L MCV 89.7 MCH 30.3 MCHC 33.8 RDW 14.4 Plt Count 139 L Neut % (Auto) 69.5 Lymph % (Auto) 18.4 L [place] % (Auto) 8.7 Eos % (Auto) 2.8 Baso % (Auto) 0.6 Neut # (Auto) 4900 Lymph # (Auto) 1300 [place] # (Auto) 600 Eos # (Auto) 200 Baso # (Auto) 0 Sodium 135 L Potassium 3.3 L Chloride 99 Carbon Dioxide 32 BUN 10 Creatinine 0.60 Estimated GFR > 60 BUN/Creatinine Ratio 16.7 Glucose 153 H Calcium 7.5 L Phosphorus 2.8 Magnesium 1.9 Total Bilirubin 1.0 AST 75 H ALT 30 Alkaline Phosphatase 108 Total Protein 6.7 Albumin 2.8 L Globulin 3.9 Albumin/Globulin Ratio 0.7 L Exam Vital Signs (past 8 hours): - 10/08/21 02:00 10/08/21 02:02 10/08/21 02:05 Temperature 99.9 F H 99.9 F H Pulse Rate 71 71 Respiratory Rate 17 19 Blood Pressure 164/77 H Pulse Oximetry 98 99 99 10/08/21 03:00 10/08/21 03:03 10/08/21 04:00 Temperature 99.3 F 99.3 F 99.0 F Pulse Rate 74 73 72 Respiratory Rate 17 17 17 Blood Pressure 162/74 H 152/72 H Pulse Oximetry 94 95 97 10/08/21 05:00 10/08/21 05:16 10/08/21 05:30 Temperature 98.4 F 98.2 F 98.2 F Pulse Rate 71 71 70 Respiratory Rate 17 17 17 Blood Pressure 143/66 H Pulse Oximetry 95 95 95 10/08/21 06:00 10/08/21 07:00 10/08/21 08:00 Temperature 98.4 F 98.4 F 98.4 F Pulse Rate 70 71 71 Respiratory Rate 18 17 18 Blood Pressure 125/60 131/61 130/60 Pulse Oximetry 94 94 94 Fraction of Inspired Oxygen 30 Oxygen Delivery Method Mechanical Ventilation Oxygen Flow Rate 15 Narrative Exam Narrative: intubated Quality TeleICU VTE Deep Vein Thrombosis/Pulmonary Embolism Present on Admission: No Assessment & Plan Assessment & Plan narrative: NEURO: # Acute encephalopathy -- Improving slowly -- Secondary to sedatives and delirium -- On seroquel nightly -- Will attempt to wean off fentanyl infusion -- Daily SAT -- Early mobility as tolerated RESP: # Acute hypoxemia respiratory failure -- Secondary to parainfluenza w/ superimposed MSSA PNA -- On nafcillin therapy -- Daily SAT and SBT -- Cont diuresis to seek net negative fluid balance -- Delirium rx as above -- HOB elevation -- Aspiration precaution CVS: # HTN -- On norvasc -- Goal SBP < 140 IDL: # MSSA PNA -- On nafcillin therapy X 7 days ENDO: -- Goal BS < 180 D/w RN and ICU team. Time Spent With Patient Critical Care time: I spent a total of [] minutes of critical care time on this patient's care today; this time is exclusive of procedural time.
[2021-10-08] MEDS: dexmedeTOMIDine in 0.9 % NaCL 400 MCG/100 ML PLAST..BAG 34.768 MCG IV ×4 (15:58→23:26)
--- NOTE | 2021-10-08 18:56 | PC.NURSE ---
Patient's sedation turned down at beginning of shift for SV. SBT lasted from 10:25-11:15, returned to vent by RT due to low NIF and increased RR into the 30's with movement. Fentanyl and precedex restarted and titrated to RASS of 0. Patient received IV potassium replacement. Pineda output adequate. HR and BP WNL with BP trending up with alertness toward end of shift. No BM. Q2 turns. Tube feeding at goal with minimal residual, received protein supplement.
[2021-10-08] MEDS: fentaNYL 1,000 MCG in DEXTROSE 5% IN WATER 250 ML 26.821 MCG IV (19:55)
--- NOTE | 2021-10-08 20:24 | PM.ICURNDS ---
- :: This patient was seen via real time interactive two-way audiovisual telecommunication. Note: 71 year old female admitted for acute hypoxemia respiraotry failure secondary to parainfleunza PNA with superimposed MSSA PNA and pulmonary edema. Failed SBT due to tachypnea. Mentation improving slowly. Will decrease FWF to 50cc/hr given Na 135. Check SAT and SBT tomorrow. D/w RN.
[2021-10-08] MEDS: QUETIAPINE 25 MG TABLET PO (20:36)
--- NOTE | 2021-10-08 20:45 | PM.PN.1 ---
Subjective Subjective Date Patient Seen: 10/08/21 Interval history: THIS IS A 71-YEAR-OLD FEMALE BROUGHT TO THE HOSPITAL WITH SIGNS OF ACUTE TODAYTODAY? RESPIRATORY FAILURE PATIENT INTUBATED ON 10/03 HAS A LEFT SUBCLAVIAN CENTRAL LINE INSERTED ON 10/03 CRITICAL CARE TEAM CONSULTED PATIENT IS POSITIVE FOR PARAINFLUENZA 3 STARTED ON TUBE FEEDING 10/04 TODAY UNABLE TO OBTAIN DUE TO CURRENT CONDITION Exam Vital Signs (past 8 hours): - 10/08/21 13:00 10/08/21 13:30 10/08/21 14:00 Temperature 97.7 F 97.5 F L 97.7 F Pulse Rate 69 69 68 Respiratory Rate 11 L 20 18 Blood Pressure 134/61 132/65 Pulse Oximetry 94 96 94 10/08/21 14:30 10/08/21 15:00 10/08/21 15:30 Temperature 97.5 F L 97.5 F L 97.7 F Pulse Rate 68 68 68 Respiratory Rate 16 17 23 Blood Pressure 144/72 H Pulse Oximetry 95 96 94 10/08/21 16:00 10/08/21 16:30 10/08/21 17:00 Temperature 97.7 F 97.7 F 97.7 F Pulse Rate 66 65 66 Respiratory Rate 17 19 17 Blood Pressure 149/70 H 157/77 H Pulse Oximetry 95 96 95 10/08/21 17:30 10/08/21 18:00 10/08/21 19:00 Temperature 97.7 F 97.7 F 98.1 F Pulse Rate 68 69 70 Respiratory Rate 17 20 20 Blood Pressure 155/75 H 152/73 H Pulse Oximetry 95 95 94 10/08/21 20:00 Temperature 99.0 F Pulse Rate 71 Respiratory Rate 19 Blood Pressure 133/64 Pulse Oximetry 95 Fraction of Inspired Oxygen 30 Oxygen Delivery Method Mechanical Ventilation Oxygen Flow Rate 15 Narrative Exam Narrative: INTUBATED ; OBESE HEAD ATRAUMATIC AND NORMOCEPHALIC NECK :? NO LYMPHADENOPATHY;? NO CAROTID BRUITS; NO? NECK MASS EYE: PERRLA, NORMAL CONJUNCTIVA; NO JAUNDICE CHEST:? REGULAR RATE.? ? NO RUBS.? PMI IS NON DISPLACED.? NO MURMURS; NORMAL S1-S2 PULMONARY:? DECREASED BS OVER THE BASES.? ? BIBASILAR CRACKLES NOTED;? NO PLEURAL RUBS ABDOMEN:? SOFT. NONDISTENDED.? BOWEL SOUNDS ARE PRESENT IN ALL 4 QUADRANTS.? NO MASS. EXTREMITIES: 2+ PITTING NICKOLAS LOWER EDEMA..? NO CYANOSIS OR CLUBBING NOTED. NEURO:? CRANIAL NERVES 2-12 GROSSLY INTACT. NO FOCAL NEUROLOGICAL DEFICIT NOTED. SENSATIONS INTACT MSK:? ADEQUATE PASSIVE RANGE OF MOTION FOR AGE.? NO JOINT EFFUSION.? NO SIGN OF TRAUMA SKIN:? FAIR SKIN TURGOR FOR AGE.? NO OPEN LESIONS :? NORMAL EXTERNAL GENITALIA.? 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 PSYCH :? UNABLE TO ASSESS Objective Labs Result Diagrams: 10/08/21 03:50 10/08/21 03:50 Labs: Laboratory Results - last 24 hr 10/08/21 10/08/21 10/08/21 03:50 03:50 03:50 WBC 7.1 RBC 3.68 L Hgb 11.2 L Hct 33.0 L MCV 89.7 MCH 30.3 MCHC 33.8 RDW 14.4 Plt Count 139 L Neut % (Auto) 69.5 Lymph % (Auto) 18.4 L [place] % (Auto) 8.7 Eos % (Auto) 2.8 Baso % (Auto) 0.6 Neut # (Auto) 4900 Lymph # (Auto) 1300 [place] # (Auto) 600 Eos # (Auto) 200 Baso # (Auto) 0 Sodium 135 L Potassium 3.3 L Chloride 99 Carbon Dioxide 32 BUN 10 Creatinine 0.60 Estimated GFR > 60 BUN/Creatinine Ratio 16.7 Glucose 153 H Calcium 7.5 L Phosphorus 2.8 Magnesium 1.9 Total Bilirubin 1.0 AST 75 H ALT 30 Alkaline Phosphatase 108 Total Protein 6.7 Albumin 2.8 L Globulin 3.9 Albumin/Globulin Ratio 0.7 L [facility] Medical History (Updated 10/06/21 @ 10:01 by Tanner Mistry MD) Acid reflux Chronic insomnia Hyperlipidemia Hypertension Hypothyroidism (acquired) Social History household members: spouse Smoking Status: Unknown if ever smoked alcohol intake: current Assessment & Plan Assessment & Plan narrative: IMPRESSION ACUTE HYPOXIC RESPIRATORY FAILURE SECONDARY TO? C.A? PNEUMONIA. ACUTE VIRAL PNEUMONITIS.? PARAINFLUENZA 3 ACUTE BACTERIAL PNEUMONIA. POA;? ACQUIRED PNEUMONIA SUSPECTED.? MSSA POSSIBLE SEPSIS.? PRESENT ON ARRIVAL.? SOURCE OF INFECTION IS LIKELY THE LUNG. LEUKOCYTOSIS.? SECONDARY TO INFECTIOUS PROCESS ELEVATED LIVER ENZYME.? MONITOR CLOSELY LACTIC ACIDOSIS.? SECONDARY TO SEPSIS AND RESPIRATORY FAILURE COMBINED .? RESOLVED ANEMIA.? THIS COULD BE OF CHRONIC DISEASE.? OTHER? TYPES CAN BE WORKUP OUTPATIENT IS SUSPECTED ELEVATED BNP.? COULD BE RELATED TO CONGESTIVE FAILURE.? PATIENT HAS EDEMA PRIOR TIA PER HISTORY.. AWARE OBESITY WITH A BMI OF 39 HYPERTENSION PER HISTORY HYPOTHYROIDISM.? ACQUIRED.? PER HISTORY TYPE 2 DM.? [id number] PLAN ?PATIENT REMAIN INTUBATED ?HOWEVER SHE APPEARS TO BE IMPROVED ?SHE IS DOING FAIRLY WELL ON THE VENT ?ON 35% FIO2 WITH PEEP LOWERED OVERNIGHT ? MAP? REMAINS? ABOVE 65 WITHOUT REQUIRING PRESSORS ?ASSISTANCE FROM THE CRITICAL CARE TEAM REMAINS GREATLY APPRECIATED ?SPUTUM GROWING STAPHYLOCOCCUS AUREUS ?HOWEVER WBC LEVEL IS IMPROVING ?PATIENT IS ON NAFCILLIN MONITOR BLOOD SUGAR LEVEL CLOSELY ON INSULIN SLIDING SCALE MAINTAIN PROPER ISOLATION PER HOSPITAL PROTOCOL DUE TO FLU DIAGNOSIS FOLLOW CLOSELY WITH SERIAL CHEST FILMS AGGRESSIVE PULMONARY TOILETING WITH RESPIRATORY THERAPY ASSISTANCE ADDITIONAL MANAGEMENT PER CLINICAL COURSE PROGNOSIS IS GUARDED Time Spent With Patient Critical Care time: I spent a total of [] minutes of critical care time on this patient's care today; this time is exclusive of procedural time. Quality VTE Deep Vein Thrombosis/Pulmonary Embolism Present on Admission: No
[2021-10-08] MEDS: NYSTATIN POWDER 15GM 1 APPLIC TOP (23:27)
[2021-10-09] VITALS (29 sets, daily range): BP systolic 109–165; BP diastolic 55–85; PULSE 63–75; RESP 1–28; TEMP 36.5–37.3; O2SAT 92–97
[2021-10-09] MEDS: dexmedeTOMIDine in 0.9 % NaCL 400 MCG/100 ML PLAST..BAG 34.768 MCG IV ×4 (01:56→16:03)
[2021-10-09] MEDS: NAFCILLIN IV ×5 (04:07→20:27)
[2021-10-09] MEDS: SODIUM CHLORIDE 0.9% IV ×5 (04:07→20:27)
[2021-10-09 04:40] LABS: Add Manual Diff / Slide Review NO; Basophils Absolute Auto 0 /uL (0-100); Basophils Percent Auto 0.5 % (0-2); Eosinophils Absolute Auto 200 /uL (0-450); Eosinophils Percent Auto 2.6 % (2-4); Hematocrit 33.8 % (36-46); Hemoglobin 11.2 g/dL (12.0-16.0); Lymphocytes Absolute Auto 1000 /uL (1100-4500); Lymphocytes Percent Auto 15.1 % (25-40); Magnesium 1.7 mg/dL (1.6-2.3); Mean Corpuscular HGB Conc 33.1 % (30-36); Mean Corpuscular Volume 90.7 fL (80-100); Monocytes Absolute Auto 600 /uL (0-900); Monocytes Percent Auto 8.4 % (3-14); Neutrophils Absolute Auto 5000 /uL (1500-7000); Neutrophils Percent Auto 73.4 % (50-75); Phosphorous 2.7 mg/dL (2.8-4.1); Platelet Count 141 X10^3/uL (150-400); Red Blood Cell Count 3.72 X10^6/uL (4.0-5.2); Red Cell Distribution Width 14.6 % (11.6-14.8); White Blood Cell Count 6.8 X10^3/uL (4.5-11.0)
[2021-10-09 04:44] LABS: Alanine Aminotransferase 29 IU/L (<35); Albumin 2.7 g/dL (3.5-5.0); Albumin Globulin Ratio 0.7 (1.0-2.8); Alkaline Phosphatase 104 U/L (38-126); Aspartate Aminotransferase 73 IU/L (14-36); BUN Creatinine Ratio 24.1 (6-22); Bilirubin Total 0.8 mg/dL (0.2-1.3); Blood Urea Nitrogen 13 mg/dL (7-17); Calcium 7.9 mg/dL (8.4-10.2); Carbon Dioxide 31 mmol/L (22-32); Chloride 97 mmol/L (98-107); Estimated Glomerular Filt Rate > 60 mL/min (>60); Globulin 3.8 g/dL (1.7-4.1); Glucose 196 mg/dL (80-110); HEMOLYSIS < 15 (0-50); Potassium 3.3 mmol/L (3.4-5.1); Sodium 135 mmol/L (137-145); Total Protein 6.5 g/dL (6.3-8.2)
[2021-10-09] MEDS: FUROSEMIDE 40 MG/4 ML VIAL IV ×3 (05:52→22:29)
[2021-10-09] MEDS: CHLORHEXIDINE GLUCONATE 15 ML CUP PO ×3 (05:58→17:51)
[2021-10-09] MEDS: INSULIN LISPRO 100 UNIT/ML 3ML VIAL SUBCUT ×3 (05:59→17:54)
[2021-10-09] MEDS: SODIUM CHLORIDE 0.9% 250 ML 21 ML IV (06:26)
--- NOTE | 2021-10-09 06:51 | PC.NURSE ---
Shift note: remained wakeful off and on during the night, responding with head nods appropriately. Fentanyl drip titrated down as appropriate to keep pt comfortable during the night. Tube feeding at goal of 60ml/hr and Free Water reduced to 50ml Q4h as ordered by Dr. Brown. Chlorhexadine bath done. Pt moving all extremities well but with limited strength.
[2021-10-09] MEDS: ENOXAPARIN 40 MG/0.4 ML SYRINGE SUBCUT (08:00)
[2021-10-09] MEDS: FAMOTIDINE 20 MG/2 ML VIAL IV ×2 (08:00→22:20)
[2021-10-09] MEDS: AMLODIPINE 5 MG TABLET TUBE (08:01)
[2021-10-09] MEDS: SODIUM CHLORIDE 0.9% FLUSH 10 ML IV (08:01)
--- NOTE | 2021-10-09 09:23 | DI.RAD.S_ITS ---
PROCEDURE: XR CHEST 1V INDICATIONS: intubated, pneumonia TECHNIQUE: One view of the chest was acquired. COMPARISON: [facility], , XR CHEST 1V, 10/08/2021, 7:59. FINDINGS: Surgical changes and devices: The endotracheal tube, NG tube, and left central venous catheter are unchanged. Lungs and pleura: Lung volumes are low. Diffuse patchy pulmonary opacities are redemonstrated and appear stable from the study dated October 08, 2021. Mediastinum: The heart is enlarged, as before. Bones and chest wall: No suspicious bony lesions. Overlying soft tissues appear unremarkable. IMPRESSION: Stable chest. Dictated by: Jana Weber M.D. on 10/09/2021 at 10:01 Approved by: Jana Weber M.D. on 10/09/2021 at 10:01
[2021-10-09] MEDS: dexmedeTOMIDine in 0.9 % NaCL 400 MCG/100 ML PLAST..BAG 12.417 MCG IV (09:57)
[2021-10-09] MEDS: MAGNESIUM SULFATE 2 GM/50 ML PIGGYBACK IV (10:17)
[2021-10-09] MEDS: POTASSIUM CHLORIDE 20 MEQ/15 ML UDC 40 MEQ TUBE (10:17)
--- NOTE | 2021-10-09 10:26 | PM.PN.EICU ---
Subjective Subjective Interval history: no acute events overight failing sbts Current Medications Current Medications Medications: Home Medications amlodipine 5 mg tablet 5 mg PO BID 10/04/21 [History Confirmed 10/04/21] aspirin 81 mg tablet 81 mg PO DAILY 10/04/21 [History Confirmed 10/04/21] atorvastatin 20 mg tablet 20 mg PO DAILY 10/04/21 [History Confirmed 10/04/21] calcium citrate 200 mg (950 mg) tablet 200 mg PO DAILY 10/04/21 [History Confirmed 10/04/21] cyclobenzaprine 10 mg tablet 10 mg PO TID PRN 10/04/21 [History Confirmed 10/04/21] fluoxetine 40 mg capsule (Prozac) 40 mg PO BID 10/04/21 [History Confirmed 10/04/21] fluticasone 250 mcg-salmeterol 50 mcg/dose blistr powdr for inhalation 1 inh INHALATION BID 10/04/21 [History Confirmed 10/04/21] gabapentin 300 mg capsule 300 mg PO BEDTIME 10/04/21 [History Confirmed 10/04/21] levothyroxine 150 mcg tablet 75 mcg PO DAILY 10/04/21 [History Confirmed 10/04/21] loratadine 10 mg tablet 10 mg PO DAILY 10/04/21 [History Confirmed 10/04/21] meloxicam 15 mg tablet 15 mg PO DAILY 10/04/21 [History Confirmed 10/04/21] metformin 500 mg tablet 500 mg PO BID 10/04/21 [History Confirmed 10/04/21] metoprolol tartrate 50 mg tablet 50 mg PO BID 10/04/21 [History Confirmed 10/04/21] omega-3 fatty acids 1,200 mg PO DAILY 10/04/21 [History Confirmed 10/04/21] omeprazole 20 mg capsule,delayed release 20 mg PO BID 10/04/21 [History Confirmed 10/04/21] trazodone 150 mg tablet 75 mg PO BEDTIME PRN 10/04/21 [History Confirmed 10/04/21] zolpidem 5 mg tablet 5 mg PO BEDTIME PRN 10/04/21 [History Confirmed 10/04/21] Visit Medications (administered) Generic Name Dose Route Start Last Admin Trade Name Freq PRN Reason Stop Dose Admin Acetaminophen 650 mg 10/04/21 00:33 10/08/21 00:14 Acetaminophen 650 Mg Supp AR 650 mg Q4HR PRN Administration Fever/Mild Pain (1-3) Amlodipine Besylate 5 mg 10/07/21 09:00 10/09/21 08:01 Amlodipine 5 Mg Tablet TUBE 5 mg DAILY RYLEE Administration Chlorhexidine Gluconate 15 ml 10/04/21 06:00 10/09/21 05:58 Chlorhexidine Gluconate 15 Ml Cup PO 15 ml Q6HR RYLEE Administration Enoxaparin Sodium 40 mg 10/04/21 09:00 10/09/21 08:00 Enoxaparin 40 Mg/0.4 Ml Syringe SUBCUT 40 mg DAILY RYLEE Administration Famotidine 20 mg 10/04/21 09:00 10/09/21 08:00 Famotidine 20 Mg/2 Ml Vial IV 20 mg BID RYLEE Administration Furosemide 40 mg 10/07/21 07:45 10/09/21 05:52 Furosemide 40 Mg/4 Ml Vial IV 40 mg Q8HR RYLEE Administration Heparin Sodium (Porcine) 50 unit 10/04/21 08:46 10/09/21 04:07 Heparin Flush (Cl/Picc/Mid-Line) 50 Unit/5 Ml Syringe IV 50 unit PRN PRN Administration Flush Heparin Sodium (Porcine) 50 unit 10/04/21 09:00 10/09/21 08:00 Heparin Flush (Cl/Picc/Mid-Line) 50 Unit/5 Ml Syringe IV 50 unit BID RYLEE Administration Fentanyl 1,000 mcg/ Dextrose 270 mls @ 18.775 mls/hr 10/04/21 01:00 10/09/21 09:37 IV 0.2 mcg/kg/hr TITRATE RYLEE 5.364 mls/hr Titration Protocol 0.7 MCG/KG/HR Propofol 1,000 mg in 100 mls @ 2.98 mls/hr 10/04/21 01:00 10/07/21 09:00 Propofol IV 0 mcg/kg/min TITRATE RYLEE 0 mls/hr Titration Protocol 5 MCG/KG/MIN Nafcillin Sodium 1 gm/ Sodium 100 mls @ 200 mls/hr 10/06/21 12:00 10/09/21 08:27 Chloride IV Infused Q4H RYLEE Infusion dexmedeTOMIDine in 0.9 % NaCL 400 mcg in 100 mls @ 4.967 mls/hr 10/07/21 08:45 10/09/21 09:57 Precedex IV 0.5 mcg/kg/hr TITRATE RYLEE 12.417 mls/hr Administration Protocol 0.2 MCG/KG/HR Sodium Chloride 250 mls @ 21 mls/hr 10/07/21 15:21 10/09/21 10:00 Normal Saline 0.9% IV 0 mls/hr Q24H PRN Infusion Flush Magnesium Sulfate 2 gm in 50 mls @ 25 mls/hr 10/09/21 09:31 10/09/21 10:17 Magnesium Sulfate IV 10/09/21 11:30 25 mls/hr NOW ONE Administration Insulin Human Lispro 0 unit 10/04/21 12:00 10/09/21 05:59 Insulin Lispro 100 Unit/Ml 3ml Vial SUBCUT 1 unit Q6H RYLEE Administration Protocol Nystatin 1 applic 10/07/21 18:13 10/08/21 23:27 Nystatin Powder 15gm TOP 1 applic BID PRN Administration Rash Quetiapine Fumarate 25 mg 10/07/21 21:00 10/08/21 20:36 Quetiapine 25 Mg Tablet PO 25 mg BEDTIME RYLEE Administration Sodium Chloride 10 ml 10/04/21 08:46 10/07/21 08:27 Sodium Chloride 0.9% Flush IV 10 ml PRN PRN Administration Flush Sodium Chloride 10 ml 10/04/21 09:00 10/09/21 08:01 Sodium Chloride 0.9% Flush IV 10 ml BID RYLEE Administration Objective Ventilator Parameters: Ventilator Settings FiO2 30 CPAP Pressure Amount 5 RT Vent Frequency 16 Ventilator Tidal Volume 420 Exhaled Vt/kg IBW 7 Positive End Expiratory 5 Pressure Ventilator Pressure Support 5 Inspiratory Phase Time 0.8 I:E Ratio 1:3.7 Patient Position HOB >= 30 degrees Labs Result Diagrams: 10/09/21 04:00 10/09/21 04:00 Labs: Laboratory Results - last 24 hr 10/09/21 10/09/21 10/09/21 04:00 04:00 04:00 WBC 6.8 RBC 3.72 L Hgb 11.2 L Hct 33.8 L MCV 90.7 MCH 30.0 MCHC 33.1 RDW 14.6 Plt Count 141 L Neut % (Auto) 73.4 Lymph % (Auto) 15.1 L [place] % (Auto) 8.4 Eos % (Auto) 2.6 Baso % (Auto) 0.5 Neut # (Auto) 5000 Lymph # (Auto) 1000 L [place] # (Auto) 600 Eos # (Auto) 200 Baso # (Auto) 0 Sodium 135 L Potassium 3.3 L Chloride 97 L Carbon Dioxide 31 BUN 13 Creatinine 0.54 Estimated GFR > 60 BUN/Creatinine Ratio 24.1 H Glucose 196 H Calcium 7.9 L Phosphorus 2.7 L Magnesium 1.7 Total Bilirubin 0.8 AST 73 H ALT 29 Alkaline Phosphatase 104 Total Protein 6.5 Albumin 2.7 L Globulin 3.8 Albumin/Globulin Ratio 0.7 L Exam Vital Signs (past 8 hours): - 10/09/21 03:00 10/09/21 04:00 10/09/21 04:59 Temperature 97.7 F 97.7 F 97.9 F Pulse Rate 69 67 65 Respiratory Rate 21 17 18 Blood Pressure 150/85 H 164/80 H Pulse Oximetry 95 95 93 10/09/21 05:00 10/09/21 06:00 10/09/21 09:07 Temperature 97.9 F Pulse Rate 63 Respiratory Rate 17 Blood Pressure 155/75 H 155/76 H Pulse Oximetry 92 93 Fraction of Inspired Oxygen 30 Oxygen Delivery Method Mechanical Ventilation Oxygen Flow Rate 15 Quality TeleICU VTE Deep Vein Thrombosis/Pulmonary Embolism Present on Admission: No Assessment & Plan Assessment & Plan narrative: patient seen with bedside nurse and provider chart/labs imaging reviewed no acute events overnight currently afebrile, HD stable failing sbt due to tachypnea suggest -minimize sedation, goal KENNETH -1, can increase seroquel, check qtc -vent support, minimal settings, no secretions -daily sbt -MSSA pna, on nafcillin, 7 days total -optimize bp control -monitor ins/outs -keep glucose 140-180s -feeds as tolerated -gi/dvt ppx -goals of care and severity of illness should be disucssed with family peg/trach if safe extubation not possible -please call eICU if condition changes. Time Spent With Patient Critical Care time: I spent a total of [] minutes of critical care time on this patient's care today; this time is exclusive of procedural time.
[2021-10-09] MEDS: fentaNYL 1,000 MCG in DEXTROSE 5% IN WATER 250 ML 16.093 MCG IV (12:28)
--- NOTE | 2021-10-09 14:35 | CM.DPC ---
DCP Cont: Pt still intubated on the vent. Pt still getting nutrition through PEG tube. RT continuing to work with pt on weaning off vent. No needs identified at this time. DCP to continue to follow. P: Awaiting for pt to wean off the vent to assess for further needs. Orly Marti RN/DCP
[2021-10-09 15:16] LABS: HCO3 ABG 32 mmol/L (22-26); Oxygen Saturation ABG 96 % (95-100); PCO2 ABG 42.5 mmHg (35-45); PO2 ABG 79 mmHg (80-100); TCO2 ABG 33 mmol/L (21-31); pH ABG 7.48 (7.35-7.45)
[2021-10-09 15:17] LABS: Fractionated Inspired Oxygen 35
[2021-10-09] MEDS: polyethylene glycoL 3350 17 GM POWD.PACK 34 GM PO (17:42)
--- NOTE | 2021-10-09 18:36 | PC.NURSE ---
Patient turned down on sedation at beginning of shift for sedation vacation. SBT started at 0900 but RT returned patient to previous vent settings within 30mins due to elevated RR and insufficient TV. Precedex and fentanyl restarted and titrated to RASS of -[address] Carter. Patient received mag and potassium replacement along with scheduled IV abx. Adequate UO, >1L. HR and BP WNL, Tmax 99F. Q2 turns for skin breakdown prevention. Tube feedings at goal, tolerating well. Noted that patient hasn't had BM in 5 days, received orders for Miralax and Senna per Dr. Dumas. Updated on patient's status and potential transfer to another facility with a service line layer.
--- NOTE | 2021-10-09 18:53 | PM.PN.1 ---
Subjective Subjective Date Patient Seen: 10/09/21 Interval history: THIS IS A 71-YEAR-OLD FEMALE BROUGHT TO THE HOSPITAL WITH SIGNS OF ACUTE TODAYTODAY? RESPIRATORY FAILURE PATIENT INTUBATED ON 10/03 HAS A LEFT SUBCLAVIAN CENTRAL LINE INSERTED ON 10/03 CRITICAL CARE TEAM ON BOARD PATIENT IS POSITIVE FOR PARAINFLUENZA 3 STARTED ON TUBE FEEDING 10/04 TODAY UNABLE TO OBTAIN DUE TO CURRENT CONDITION Exam Vital Signs (past 8 hours): - 10/09/21 11:00 10/09/21 12:46 Temperature 98.8 F 98.8 F Pulse Rate 69 67 Respiratory Rate 16 18 Blood Pressure 158/75 H 157/77 H Pulse Oximetry 97 95 Fraction of Inspired Oxygen 30 Oxygen Delivery Method Mechanical Ventilation Oxygen Flow Rate 15 Narrative Exam Narrative: INTUBATED ; OBESE HEAD ATRAUMATIC AND NORMOCEPHALIC NECK :? NO LYMPHADENOPATHY;? NO CAROTID BRUITS; NO? NECK MASS EYE: PERRLA, NORMAL CONJUNCTIVA; NO JAUNDICE CHEST:? REGULAR RATE.? ? NO RUBS.? PMI IS NON DISPLACED.? NO MURMURS; NORMAL S1-S2 PULMONARY:? DECREASED BS OVER THE BASES.? ? BIBASILAR CRACKLES NOTED;? NO PLEURAL RUBS ABDOMEN:? SOFT. NONDISTENDED.? BOWEL SOUNDS ARE PRESENT IN ALL 4 QUADRANTS.? NO MASS. EXTREMITIES: 2+ PITTING NICKOLAS LOWER EDEMA..? NO CYANOSIS OR CLUBBING NOTED. NEURO:? CRANIAL NERVES 2-12 GROSSLY INTACT. NO FOCAL NEUROLOGICAL DEFICIT NOTED. SENSATIONS INTACT MSK:? ADEQUATE PASSIVE RANGE OF MOTION FOR AGE.? NO JOINT EFFUSION.? NO SIGN OF TRAUMA SKIN:? FAIR SKIN TURGOR FOR AGE.? NO OPEN LESIONS :? NORMAL EXTERNAL GENITALIA.? 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 PSYCH :? UNABLE TO ASSESS Objective Labs Result Diagrams: 10/09/21 04:00 10/09/21 04:00 Labs: Laboratory Results - last 24 hr 10/09/21 10/09/21 10/09/21 04:00 04:00 04:00 WBC 6.8 RBC 3.72 L Hgb 11.2 L Hct 33.8 L MCV 90.7 MCH 30.0 MCHC 33.1 RDW 14.6 Plt Count 141 L Neut % (Auto) 73.4 Lymph % (Auto) 15.1 L [place] % (Auto) 8.4 Eos % (Auto) 2.6 Baso % (Auto) 0.5 Neut # (Auto) 5000 Lymph # (Auto) 1000 L [place] # (Auto) 600 Eos # (Auto) 200 Baso # (Auto) 0 ABG pH ABG pCO2 ABG pO2 ABG HCO3 ABG Total CO2 ABG O2 Saturation ABG Base Excess FiO2 Sodium 135 L Potassium 3.3 L Chloride 97 L Carbon Dioxide 31 BUN 13 Creatinine 0.54 Estimated GFR > 60 BUN/Creatinine Ratio 24.1 H Glucose 196 H Calcium 7.9 L Phosphorus 2.7 L Magnesium 1.7 Total Bilirubin 0.8 AST 73 H ALT 29 Alkaline Phosphatase 104 Total Protein 6.5 Albumin 2.7 L Globulin 3.8 Albumin/Globulin Ratio 0.7 L 10/09/21 15:00 WBC RBC Hgb Hct MCV MCH MCHC RDW Plt Count Neut % (Auto) Lymph % (Auto) [place] % (Auto) Eos % (Auto) Baso % (Auto) Neut # (Auto) Lymph # (Auto) [place] # (Auto) Eos # (Auto) Baso # (Auto) ABG pH 7.48 H ABG pCO2 42.5 ABG pO2 79 L ABG HCO3 32 H ABG Total CO2 33 H ABG O2 Saturation 96 ABG Base Excess 8.0 H FiO2 35 Sodium Potassium Chloride Carbon Dioxide BUN Creatinine Estimated GFR BUN/Creatinine Ratio Glucose Calcium Phosphorus Magnesium Total Bilirubin AST ALT Alkaline Phosphatase Total Protein Albumin Globulin Albumin/Globulin Ratio [facility] Medical History (Updated 10/08/21 @ 23:47 by FRAN Flower) Acid reflux Chronic insomnia Hyperlipidemia Hypertension Hypothyroidism (acquired) Social History household members: spouse Smoking Status: Unknown if ever smoked alcohol intake: current Assessment & Plan Assessment & Plan narrative: IMPRESSION ACUTE HYPOXIC RESPIRATORY FAILURE SECONDARY TO? C.A? PNEUMONIA. ACUTE VIRAL PNEUMONITIS.? PARAINFLUENZA 3. SUPPORTIVE TREATMENT ACUTE BACTERIAL PNEUMONIA. POA;? ACQUIRED PNEUMONIA SUSPECTED.? MSSA. ON ANTIBIOTICS POSSIBLE SEPSIS.? PRESENT ON ARRIVAL.? SOURCE OF INFECTION IS LIKELY THE LUNG. LEUKOCYTOSIS.? SECONDARY TO INFECTIOUS PROCESS. RESOLVED ELEVATED LIVER ENZYME.? MONITOR CLOSELY. IMPROVING LACTIC ACIDOSIS.? SECONDARY TO SEPSIS AND RESPIRATORY FAILURE COMBINED .? RESOLVED ANEMIA.? THIS COULD BE OF CHRONIC DISEASE.? OTHER? TYPES CAN BE WORKUP OUTPATIENT IF SUSPECTED ELEVATED BNP.? COULD BE RELATED TO CONGESTIVE FAILURE.? PATIENT HAS EDEMA PRIOR TIA PER HISTORY.. AWARE OBESITY WITH A BMI OF 39 HYPERTENSION PER HISTORY HYPOTHYROIDISM.? ACQUIRED.? PER HISTORY TYPE 2 DM.? [id number] PLAN PATIENT REMAIN INTUBATED AT THIS TIME ASSIST FROM THE CRITICAL CARE TEAM GREATLY APPRECIATED UNABLE TO EXTUBATE DESPITE CHEST X-RAY NOTED TO BE STABLE WITHOUT SIGNIFICANT WORSENING PATIENT HAS FAILED MULTIPLE WEANING TRIALS PATIENT MIGHT NEED TO BE TRANSFERRED TO TERTIARY FACILITY FOR HIGH LEVEL OF CARE I HAVE ASKED THE NURSING BOTTLE HOUSE QUALITY CONTROL TECHNICIAN TO WHICH ARE TO DIFFERENT FACILITIES TO SEE IF THEY COULD ACCOMMODATE IN ANY CASE AT THIS TIME WILL CONTINUE CURRENT MANAGEMENT PATIENT MANAGEMENT PER CLINICAL COURSE PROGNOSIS IS GUARDED 10/08 ?PATIENT REMAIN INTUBATED? ?HOWEVER SHE APPEARS TO BE IMPROVED ?SHE IS DOING FAIRLY WELL ON THE VENT ?ON 35% FIO2 WITH PEEP LOWERED OVERNIGHT ? MAP? REMAINS? ABOVE 65 WITHOUT REQUIRING PRESSORS ?ASSISTANCE FROM THE CRITICAL CARE TEAM REMAINS GREATLY APPRECIATED ?SPUTUM GROWING STAPHYLOCOCCUS AUREUS ?HOWEVER WBC LEVEL IS IMPROVING ?PATIENT IS ON? NAFCILLIN ? MONITOR BLOOD SUGAR LEVEL CLOSELY ON INSULIN SLIDING SCALE MAINTAIN PROPER ISOLATION PER HOSPITAL PROTOCOL DUE TO FLU DIAGNOSIS FOLLOW CLOSELY WITH SERIAL CHEST? FILMS AGGRESSIVE PULMONARY TOILETING WITH RESPIRATORY THERAPY ASSISTANCE ADDITIONAL MANAGEMENT PER CLINICAL COURSE PROGNOSIS IS GUARDED ? Time Spent With Patient Critical Care time: I spent a total of [] minutes of critical care time on this patient's care today; this time is exclusive of procedural time. Quality VTE Deep Vein Thrombosis/Pulmonary Embolism Present on Admission: No
[2021-10-09] MEDS: dexmedeTOMIDine in 0.9 % NaCL 400 MCG/100 ML PLAST..BAG 29.801 MCG IV ×2 (18:56→22:19)
--- NOTE | 2021-10-09 20:37 | P.DS_ITS ---
History of Present Illness History of Present Illness Date Patient Seen: 10/10/21 Chief complaint: sob, glf, desat Narrative: History of Present Illness History of Present Illness Date Patient Seen: 10/03/21 Time Patient Seen: 22:55 Chief complaint: sob, glf, desat Narrative: This is a 71-year-old female with a history of hypertension, hyperlipidemia, depression, hypothyroidism, diabetes mellitus type 2, insomnia and GERD who presents with acute respiratory failure/hypoxia.? Her had surgery yesterday and apparently today found her weak, falling down and unable to get herself up off the floor.? The paramedics were called and when they arrived to help her get up they noted her to be hypoxic and in respiratory distress.? Her saturation was in the 70s and she was placed on BiPAP and evaluated in the emergency department where the viral panel confirms parainfluenza, she appears to be in pulmonary edema with viral pneumonia on chest x-ray/CT.? Her initial lactate was 5.2, dropping to 1.6 with diuresis by Lasix.? The BNP is 2210.? The EKG is normal sinus rhythm without any abnormal ST or T-wave changes.? The troponin is less than 0.012.? The white blood count is 12.2 with a procalcitonin of 0.16.? The temperature is 100.9?.? ABG has a pH is 7.44 with a pCO2 of 33.5, a PO2 of 84 and a bicarb of 22 with BiPAP at 60% and then sats came up into the 90s and then she was placed on CPAP at 40% FiO2 with sats in the high 90s.? She has remained tachypneic in the 40s and significantly confused.? She required IV dilaudid for sedation for her chest CT.? With a 1 mg dose of IV Lasix her delirious movements in bed and her confusion did not change. 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 C.A? PNEUMONIA. ACUTE VIRAL PNEUMONITIS.? PARAINFLUENZA 3.? SUPPORTIVE TREATMENT ACUTE BACTERIAL PNEUMONIA. POA;? ACQUIRED PNEUMONIA SUSPECTED.? MSSA.? ON? ANTIBIOTICS POSSIBLE SEPSIS.? PRESENT ON ARRIVAL.? SOURCE OF INFECTION IS LIKELY THE LUNG. LEUKOCYTOSIS.? SECONDARY TO INFECTIOUS PROCESS. ? RESOLVED ELEVATED LIVER ENZYME.? MONITOR CLOSELY.? IMPROVING LACTIC ACIDOSIS.? SECONDARY TO SEPSIS AND RESPIRATORY FAILURE COMBINED .? RESOLVED ANEMIA.? THIS COULD BE OF CHRONIC DISEASE.? OTHER? TYPES CAN BE WORKUP OUTPATIENT IF SUSPECTED ELEVATED BNP.? COULD BE RELATED TO CONGESTIVE FAILURE.? PATIENT HAS EDEMA PRIOR TIA PER HISTORY.. AWARE OBESITY WITH A BMI OF 39 HYPERTENSION PER HISTORY HYPOTHYROIDISM.? ACQUIRED.? PER HISTORY TYPE 2 DM.? [id number] Hospital Course: THIS IS A 81-YEAR-OLD FEMALE ADMITTED TO THE HOSPITAL WITH SIGN OF RESPIRATORY FAILURE SECONDARY TO MULTIFOCAL PNEUMONIA. PATIENT HAS BEEN INTUBATED SINCE SOON AFTER ADMISSION. SHE REMAINS ON THE VENT DESPITE MULTIPLE ATTEMPTS TO EXTUBATE. PATIENT HAS FAILED ALL WEANING TRIALS SO FAR. ALTHOUGH X-RAY READING APPEARS STABLE PATIENT HAS BEEN ON ANTIBIOTICS. THE ICU HAS BEEN PROVIDING MUCH NEEDED ASSISTANCE. AT THIS POINT WE FEEL PATIENT WILL NEED ADDITIONAL CARE WHICH CANNOT BE PROVIDED HERE SHE WAS REFERRED TO A TERTIARY FACILITY FOR HIGHER LEVEL OF CARE. SHE HAS BEEN ACCEPTED AT [facility]. I SPOKE TO THE CRITICAL CARE ATTENDING AT LENGTH IN REGARD TO THE CASE. HE IS AGREEABLE FOR THE DISCHARGE. PATIENT S SPOUSE IS ALSO AGREEABLE TO THE TRANSFER Time Spent with Patient Time spent: Greater than 30 minutes Exam Vital Signs (past 8 hours): - 10/09/21 12:46 10/09/21 19:00 10/09/21 20:00 Temperature 98.8 F 98.6 F 98.6 F Pulse Rate 67 75 72 Respiratory Rate 18 19 18 Blood Pressure 157/77 H 160/79 H 165/78 H Pulse Oximetry 95 96 96 Fraction of Inspired Oxygen 30 Oxygen Delivery Method Mechanical Ventilation Oxygen Flow Rate 15 Objective Labs Result Diagrams: 10/10/21 00:45 10/10/21 00:45 Labs: Laboratory Results - last 24 hr 10/09/21 10/09/21 10/09/21 04:00 04:00 04:00 WBC 6.8 RBC 3.72 L Hgb 11.2 L Hct 33.8 L MCV 90.7 MCH 30.0 MCHC 33.1 RDW 14.6 Plt Count 141 L Neut % (Auto) 73.4 Lymph % (Auto) 15.1 L [place] % (Auto) 8.4 Eos % (Auto) 2.6 Baso % (Auto) 0.5 Neut # (Auto) 5000 Lymph # (Auto) 1000 L [place] # (Auto) 600 Eos # (Auto) 200 Baso # (Auto) 0 ABG pH ABG pCO2 ABG pO2 ABG HCO3 ABG Total CO2 ABG O2 Saturation ABG Base Excess FiO2 Sodium 135 L Potassium 3.3 L Chloride 97 L Carbon Dioxide 31 BUN 13 Creatinine 0.54 Estimated GFR > 60 BUN/Creatinine Ratio 24.1 H Glucose 196 H Calcium 7.9 L Phosphorus 2.7 L Magnesium 1.7 Total Bilirubin 0.8 AST 73 H ALT 29 Alkaline Phosphatase 104 Total Protein 6.5 Albumin 2.7 L Globulin 3.8 Albumin/Globulin Ratio 0.7 L 10/09/21 15:00 WBC RBC Hgb Hct MCV MCH MCHC RDW Plt Count Neut % (Auto) Lymph % (Auto) [place] % (Auto) Eos % (Auto) Baso % (Auto) Neut # (Auto) Lymph # (Auto) [place] # (Auto) Eos # (Auto) Baso # (Auto) ABG pH 7.48 H ABG pCO2 42.5 ABG pO2 79 L ABG HCO3 32 H ABG Total CO2 33 H ABG O2 Saturation 96 ABG Base Excess 8.0 H FiO2 35 Sodium Potassium Chloride Carbon Dioxide BUN Creatinine Estimated GFR BUN/Creatinine Ratio Glucose Calcium Phosphorus Magnesium Total Bilirubin AST ALT Alkaline Phosphatase Total Protein Albumin Globulin Albumin/Globulin Ratio [facility] Medical History (Updated 10/08/21 @ 23:47 by FRAN Flower) Acid reflux Chronic insomnia Hyperlipidemia Hypertension Hypothyroidism (acquired) Social History household members: spouse Smoking Status: Unknown if ever smoked alcohol intake: current Discharge Plan Discharge Plan Patient Disposition: [facility] Diet/Activity/Treatments Diet: Nothing by Mouth Discharge Data Primary Care Provider: Staci Tovar VTE Deep Vein Thrombosis/Pulmonary Embolism Present on Admission: No
[2021-10-09] MEDS: QUETIAPINE 25 MG TABLET PO (20:43)
--- NOTE | 2021-10-09 20:51 | PM.ICURNDS ---
- :: This patient was seen via real time interactive two-way audiovisual telecommunication. patient remains sedated on fentanyl and precedex, and intubated on same settings. Patient now pending trasnfer to OSH. cont sedation vte ppx and GI ppx. SBT in am if trasnfer has no occured
[2021-10-09 21:39] LABS: COVID19 -Nasal RAPID Negative (Negative)
[2021-10-10] VITALS (19 sets, daily range): BP systolic 111–127; BP diastolic 53–59; PULSE 67–73; RESP 0–23; TEMP 37.3–37.6; O2SAT 95–97
[2021-10-10] MEDS: NAFCILLIN IV ×4 (00:29→12:21)
[2021-10-10] MEDS: SODIUM CHLORIDE 0.9% IV ×4 (00:29→12:21)
[2021-10-10] MEDS: CHLORHEXIDINE GLUCONATE 15 ML CUP PO ×3 (00:29→11:52)
[2021-10-10 01:12] LABS: Alanine Aminotransferase 30 IU/L (<35); Albumin 2.7 g/dL (3.5-5.0); Albumin Globulin Ratio 0.7 (1.0-2.8); Alkaline Phosphatase 98 U/L (38-126); Aspartate Aminotransferase 82 IU/L (14-36); BUN Creatinine Ratio 25.4 (6-22); Bilirubin Total 0.8 mg/dL (0.2-1.3); Blood Urea Nitrogen 15 mg/dL (7-17); Calcium 7.9 mg/dL (8.4-10.2); Carbon Dioxide 31 mmol/L (22-32); Chloride 97 mmol/L (98-107); Estimated Glomerular Filt Rate > 60 mL/min (>60); Globulin 3.8 g/dL (1.7-4.1); Glucose 172 mg/dL (80-110); HEMOLYSIS < 15 (0-50); Potassium 3.5 mmol/L (3.4-5.1); Sodium 134 mmol/L (137-145); Total Protein 6.5 g/dL (6.3-8.2)
[2021-10-10] MEDS: dexmedeTOMIDine in 0.9 % NaCL 400 MCG/100 ML PLAST..BAG 32.285 MCG IV ×2 (01:18→08:17)
[2021-10-10 01:23] LABS: Add Manual Diff / Slide Review NO; Basophils Absolute Auto 100 /uL (0-100); Basophils Percent Auto 1.5 % (0-2); Eosinophils Absolute Auto 200 /uL (0-450); Eosinophils Percent Auto 3.1 % (2-4); Hematocrit 32.9 % (36-46); Hemoglobin 10.9 g/dL (12.0-16.0); Lymphocytes Absolute Auto 1000 /uL (1100-4500); Lymphocytes Percent Auto 15.6 % (25-40); Mean Corpuscular HGB Conc 33.2 % (30-36); Mean Corpuscular Hemoglobin 30.2 PG (26-34); Mean Corpuscular Volume 90.8 fL (80-100); Monocytes Absolute Auto 400 /uL (0-900); Monocytes Percent Auto 6.5 % (3-14); Neutrophils Absolute Auto 4900 /uL (1500-7000); Neutrophils Percent Auto 73.3 % (50-75); Platelet Count 154 X10^3/uL (150-400); Red Blood Cell Count 3.62 X10^6/uL (4.0-5.2); Red Cell Distribution Width 14.6 % (11.6-14.8); White Blood Cell Count 6.7 X10^3/uL (4.5-11.0)
[2021-10-10 01:32] LABS: Phosphorous 3.1 mg/dL (2.8-4.1)
[2021-10-10] MEDS: dexmedeTOMIDine in 0.9 % NaCL 400 MCG/100 ML PLAST..BAG 29.801 MCG IV (04:37)
[2021-10-10] MEDS: FUROSEMIDE 40 MG/4 ML VIAL IV (05:47)
--- NOTE | 2021-10-10 06:40 | PC.NURSE ---
Shift Note-Patient remains on ventilator, FIO2 .35, TV 420, PEEP 8, RR set at 16, does occasionally over when anxious. Fentanyl at 0.6mcg/kg/hr, Precedex at 1.2mcg/kg/hr, she does open her eyes and track briefly, will occasionally milk driver hands. RASS -2, FLACC 2-3. Tolerating tube feedings, rate 60ml/hr, residuals 5-10ml.
[2021-10-10] MEDS: INSULIN LISPRO 100 UNIT/ML 3ML VIAL SUBCUT ×2 (06:54→12:10)
[2021-10-10] MEDS: fentaNYL 1,000 MCG in DEXTROSE 5% IN WATER 250 ML 18.775 MCG IV (07:18)
[2021-10-10] MEDS: ENOXAPARIN 40 MG/0.4 ML SYRINGE SUBCUT (08:17)
[2021-10-10] MEDS: FAMOTIDINE 20 MG/2 ML VIAL IV (08:18)
[2021-10-10] MEDS: AMLODIPINE 5 MG TABLET TUBE (08:44)
[2021-10-10] MEDS: SENNOSIDES 8.6 MG TABLET PO (08:45)
[2021-10-10] MEDS: SODIUM CHLORIDE 0.9% FLUSH 10 ML IV (08:45)
[2021-10-10] MEDS: polyethylene glycoL 3350 17 GM POWD.PACK PO (08:45)
--- NOTE | 2021-10-10 10:24 | PM.PN.EICU ---
Subjective Subjective Interval history: no acute events overnight Current Medications Current Medications Medications: Home Medications amlodipine 5 mg tablet 5 mg PO BID 10/04/21 [History Confirmed 10/04/21] aspirin 81 mg tablet 81 mg PO DAILY 10/04/21 [History Confirmed 10/04/21] atorvastatin 20 mg tablet 20 mg PO DAILY 10/04/21 [History Confirmed 10/04/21] calcium citrate 200 mg (950 mg) tablet 200 mg PO DAILY 10/04/21 [History Confirmed 10/04/21] cyclobenzaprine 10 mg tablet 10 mg PO TID PRN 10/04/21 [History Confirmed 10/04/21] fluoxetine 40 mg capsule (Prozac) 40 mg PO BID 10/04/21 [History Confirmed 10/04/21] fluticasone 250 mcg-salmeterol 50 mcg/dose blistr powdr for inhalation 1 inh INHALATION BID 10/04/21 [History Confirmed 10/04/21] gabapentin 300 mg capsule 300 mg PO BEDTIME 10/04/21 [History Confirmed 10/04/21] levothyroxine 150 mcg tablet 75 mcg PO DAILY 10/04/21 [History Confirmed 10/04/21] loratadine 10 mg tablet 10 mg PO DAILY 10/04/21 [History Confirmed 10/04/21] meloxicam 15 mg tablet 15 mg PO DAILY 10/04/21 [History Confirmed 10/04/21] metformin 500 mg tablet 500 mg PO BID 10/04/21 [History Confirmed 10/04/21] metoprolol tartrate 50 mg tablet 50 mg PO BID 10/04/21 [History Confirmed 10/04/21] omega-3 fatty acids 1,200 mg PO DAILY 10/04/21 [History Confirmed 10/04/21] omeprazole 20 mg capsule,delayed release 20 mg PO BID 10/04/21 [History Confirmed 10/04/21] trazodone 150 mg tablet 75 mg PO BEDTIME PRN 10/04/21 [History Confirmed 10/04/21] zolpidem 5 mg tablet 5 mg PO BEDTIME PRN 10/04/21 [History Confirmed 10/04/21] Visit Medications (administered) Generic Name Dose Route Start Last Admin Trade Name Freq PRN Reason Stop Dose Admin Acetaminophen 650 mg 10/04/21 00:33 10/08/21 00:14 Acetaminophen [address] 650 mg Q4HR PRN Administration Fever/Mild Pain (1-3) Amlodipine Besylate 5 mg 10/07/21 09:00 10/10/21 08:44 Amlodipine 5 Mg Tablet TUBE 5 mg DAILY RYLEE Administration Chlorhexidine Gluconate 15 ml 10/04/21 06:00 10/10/21 05:47 Chlorhexidine Gluconate 15 Ml Cup PO 15 ml Q6HR RYLEE Administration Enoxaparin Sodium 40 mg 10/04/21 09:00 10/10/21 08:17 Enoxaparin 40 Mg/0.4 Ml Syringe SUBCUT 40 mg DAILY RYLEE Administration Famotidine 20 mg 10/04/21 09:00 10/10/21 08:18 Famotidine 20 Mg/2 Ml Vial IV 20 mg BID RYLEE Administration Furosemide 40 mg 10/07/21 07:45 10/10/21 05:47 Furosemide 40 Mg/4 Ml Vial IV 40 mg Q8HR RYLEE Administration Heparin Sodium (Porcine) 50 unit 10/04/21 08:46 10/09/21 04:07 Heparin Flush (Cl/Picc/Mid-Line) 50 Unit/5 Ml Syringe IV 50 unit PRN PRN Administration Flush Heparin Sodium (Porcine) 50 unit 10/04/21 09:00 10/10/21 08:18 Heparin Flush (Cl/Picc/Mid-Line) 50 Unit/5 Ml Syringe IV 50 unit BID RYLEE Administration Fentanyl 1,000 mcg/ Dextrose 270 mls @ 18.775 mls/hr 10/04/21 01:00 10/10/21 09:00 IV 0.3 mcg/kg/hr TITRATE RYLEE 8.046 mls/hr Titration Protocol 0.7 MCG/KG/HR Propofol 1,000 mg in 100 mls @ 2.98 mls/hr 10/04/21 01:00 10/07/21 09:00 Propofol IV 0 mcg/kg/min TITRATE RYLEE 0 mls/hr Titration Protocol 5 MCG/KG/MIN Nafcillin Sodium 1 gm/ Sodium 100 mls @ 200 mls/hr 10/06/21 12:00 10/10/21 09:15 Chloride IV Infused Q4H RYLEE Infusion dexmedeTOMIDine in 0.9 % NaCL 400 mcg in 100 mls @ 4.967 mls/hr 10/07/21 08:45 10/10/21 09:00 Precedex IV 0.9 mcg/kg/hr TITRATE RYLEE 22.351 mls/hr Titration Protocol 0.2 MCG/KG/HR Sodium Chloride 250 mls @ 21 mls/hr 10/07/21 15:21 10/09/21 10:00 Normal Saline 0.9% IV 0 mls/hr Q24H PRN Infusion Flush Insulin Human Lispro 0 unit 10/04/21 12:00 10/10/21 06:54 Insulin Lispro 100 Unit/Ml 3ml Vial SUBCUT 2 unit Q6H RYLEE Administration Protocol Nystatin 1 applic 10/07/21 18:13 10/08/21 23:27 Nystatin Powder 15gm TOP 1 applic BID PRN Administration Rash Polyethylene Glycol 17 gm 10/10/21 09:00 10/10/21 08:45 Polyethylene Glycol 3350 17 Gm Powd.Pack PO 17 gm DAILY RYLEE Administration Quetiapine Fumarate 25 mg 10/07/21 21:00 10/09/21 20:43 Quetiapine 25 Mg Tablet PO 25 mg BEDTIME RYLEE Administration Sennosides 8.6 mg 10/10/21 09:00 10/10/21 08:45 Sennosides 8.6 Mg Tablet PO 8.6 mg DAILY RYLEE Administration Sodium Chloride 10 ml 10/04/21 08:46 10/07/21 08:27 Sodium Chloride 0.9% Flush IV 10 ml PRN PRN Administration Flush Sodium Chloride 10 ml 10/04/21 09:00 10/10/21 08:45 Sodium Chloride 0.9% Flush IV 10 ml BID RYLEE Administration Objective Ventilator Parameters: Ventilator Settings FiO2 35 CPAP Pressure Amount 5 RT Vent Frequency 16 Ventilator Tidal Volume 420 Exhaled Vt/kg IBW 7 Positive End Expiratory 8 Pressure Ventilator Pressure Support 5 Inspiratory Phase Time 0.8 I:E Ratio 1:3.7 Patient Position HOB >= 30 degrees Labs Result Diagrams: 10/10/21 00:45 10/10/21 00:45 Labs: Laboratory Results - last 24 hr 10/09/21 10/09/21 10/10/21 15:00 21:15 00:45 WBC RBC Hgb Hct MCV MCH MCHC RDW Plt Count Neut % (Auto) Lymph % (Auto) [place] % (Auto) Eos % (Auto) Baso % (Auto) Neut # (Auto) Lymph # (Auto) [place] # (Auto) Eos # (Auto) Baso # (Auto) ABG pH 7.48 H ABG pCO2 42.5 ABG pO2 79 L ABG HCO3 32 H ABG Total CO2 33 H ABG O2 Saturation 96 ABG Base Excess 8.0 H FiO2 35 Sodium 134 L Potassium 3.5 Chloride 97 L Carbon Dioxide 31 BUN 15 Creatinine 0.59 Estimated GFR > 60 BUN/Creatinine Ratio 25.4 H Glucose 172 H Calcium 7.9 L Phosphorus Magnesium Total Bilirubin 0.8 AST 82 H ALT 30 Alkaline Phosphatase 98 Total Protein 6.5 Albumin 2.7 L Globulin 3.8 Albumin/Globulin Ratio 0.7 L SARS-CoV-2 (PCR) Negative 10/10/21 10/10/21 00:45 00:45 WBC 6.7 RBC 3.62 L Hgb 10.9 L Hct 32.9 L MCV 90.8 MCH 30.2 MCHC 33.2 RDW 14.6 Plt Count 154 Neut % (Auto) 73.3 Lymph % (Auto) 15.6 L [place] % (Auto) 6.5 Eos % (Auto) 3.1 Baso % (Auto) 1.5 Neut # (Auto) 4900 Lymph # (Auto) 1000 L [place] # (Auto) 400 Eos # (Auto) 200 Baso # (Auto) 100 ABG pH ABG pCO2 ABG pO2 ABG HCO3 ABG Total CO2 ABG O2 Saturation ABG Base Excess FiO2 Sodium Potassium Chloride Carbon Dioxide BUN Creatinine Estimated GFR BUN/Creatinine Ratio Glucose Calcium Phosphorus 3.1 Magnesium 2.0 Total Bilirubin AST ALT Alkaline Phosphatase Total Protein Albumin Globulin Albumin/Globulin Ratio SARS-CoV-2 (PCR) Exam Vital Signs (past 8 hours): - 10/10/21 03:00 10/10/21 04:00 10/10/21 07:00 Temperature 99.3 F 99.3 F 99.5 F Pulse Rate 67 68 68 Respiratory Rate 18 20 16 Blood Pressure 118/58 L 126/58 L 116/57 L Pulse Oximetry 96 96 95 10/10/21 08:00 10/10/21 09:00 Temperature 99.5 F 99.3 F Pulse Rate 69 69 Respiratory Rate 18 23 Blood Pressure 122/59 L 115/56 L Pulse Oximetry 95 96 Fraction of Inspired Oxygen 30 Oxygen Delivery Method Mechanical Ventilation Oxygen Flow Rate 15 Quality TeleICU VTE Deep Vein Thrombosis/Pulmonary Embolism Present on Admission: No Assessment & Plan Assessment & Plan narrative: Assessment & Plan narrative: patient seen with bedside nurse and provider chart/labs imaging reviewed no acute events overnight remains afebrile, HD stable follows commands sah/sbt pending today suggest -dc fentanyl -use precedes -sa/sbt today if continues to fail, may need tracheostomy -vent support, minimal settings, no secretions -daily sbt -MSSA pna, on nafcillin, 7 days total -optimize bp control -monitor ins/outs -keep glucose 140-180s -feeds as tolerated -gi/dvt ppx -goals of care and severity of illness should be discussed with family ?peg/trach if safe extubation not possible -please call eICU if condition changes Time Spent With Patient Critical Care time: I spent a total of [] minutes of critical care time on this patient's care today; this time is exclusive of procedural time.
--- NOTE | 2021-10-10 11:41 | PC.NURSE ---
Addendum entered by Theodore Coppola R.N. 10/10/21 13:31: 1215- Transport team at bedside. Report given. Pt required 3PA from bed to stretcher. Pt's glasses given to transport team. Pt left with soft wrist restraints in place, fentanyl/precedex infusing. Abx given to transport team to infuse during transport. Spouse was updated re: time of departure. Pt left at 1235. Original Note: 09- ICU rounds. Reviewed VS, labs, vent settings, sedation, I/Os, plan of care. Dr. Carter instructs to dc fentanyl at this time and prepare for SBT. Notified RT of instruction. 1000- Spoke with hospitalist. States pt will transfer, no need for for SBT. May restart fentanyl. 1130- Coordinator informed this RN of bed at [facility]. Updated spouse who is currently at bedside. Belongings gathered and sent with except for eye glasses. 1140- Called to [facility] and gave report to receiving nurse (Fidencio). Notified him of spouses contact information and that spouse would like someone to call him after pt arrives for update.
[2021-10-10] MEDS: dexmedeTOMIDine in 0.9 % NaCL 400 MCG/100 ML PLAST..BAG 22.351 MCG IV (11:52)
== END 2021-10-10 12:35 | disposition short-term general hospital (02) | DRG 870 ==
LOC: ED 21:54 → AC 21:58 → ICU 22:15
PROVIDERS: Hospitalist; Internal Medicine; Nurse Practitioner Family; Admitting Provider Family Medicine; Emergency Provider Emergency Medicine; Family Provider Nutritionist; PCP Nutritionist; Referring Provider Emergency Medicine; Visit Provider Family Medicine
DX: A41.9 Sepsis, unspecified organism (principal); J15.211 Pneumonia due to Methicillin susceptible Staphylococcus aureus; J96.01 Acute respiratory failure with hypoxia; J12.2 Parainfluenza virus pneumonia; E87.2 Acidosis; R65.20 Severe sepsis without septic shock; R41.82 Altered mental status, unspecified; I50.9 Heart failure, unspecified; E11.9 Type 2 diabetes mellitus without complications; I11.0 Hypertensive heart disease with heart failure; F32.A Depression, unspecified; K21.9 Gastro-esophageal reflux disease without esophagitis; Z20.822 Contact with and (suspected) exposure to COVID-19; Z79.84 Long term (current) use of oral hypoglycemic drugs
CPT/HCPCS: 36415; 36592; 36600; 70450; 71045; 71275; 74018; 80053; 80305; 80320; 81001; 82805; 82962; 83605; 83690; 83735; 83880; 84100; 84145; 84484; 85007; 85025; 85379; 87040; 87070; 87077; 87147; 87186; 87205; 87633; 87635; 87797; 93005; 93306; 94002; 94003; 94010; 94640; 94660; 94762; 94799; 96365; 96366; 96375; 99285; 99291; 99292; C9803; J1170; J1642; J1650; J1815; J1940; J2020; J2060; J2543; J2704; J3010; J3475; J7613; Q9967